=== PATIENT | female | born 1940 | race Caucasian/White ===

== ENCOUNTER 2019-10-25 07:15 | Outpatient (CLI) | payer MEDICARE, SELFPAY ==
--- NOTE | ~2019-10-25 | XR_ITS ---
EXAMINATION: XR knee LT 3V EXAM DATE: 10/25/2019 07:37 INDICATION: No known recent injury provided at this time. Pain of the left knee. Replacement 4 month s ago. TECHNIQUE: Three projections of the left knee. There is no prior study for comparison. FINDINGS: Status post total left knee arthroplasty, hardware in expected position. No periprosthetic lucency. Probable small joint effusion. There are no acute fractures identified. IMPRESSION: 1. Intact left knee arthroplasty. 2. Small joint effusion. Reviewed, dictated and finalized at location B.
== END 2019-10-25 07:16 | disposition home or self-care (01) ==
LOC: ANHIMG 07:19
PROVIDERS: PCP Internal Medicine; Visit Provider Nurse Practitioner
DX: M25.462 Effusion, left knee (principal)
CPT/HCPCS: 36415; 73562; 85610

== ENCOUNTER 2019-11-11 07:25 | Outpatient (CLI) | payer MEDICARE, SELFPAY ==
[2019-11-11 08:19] LABS: Alanine Aminotransferase 16 U/L (4-35); Albumin Level 4.2 g/dL (3.5-5.1); Alkaline Phosphatase 104 U/L (38-126); Aspartate Amino Transferase 33 U/L (14-36); Bilirubin,Total 0.8 mg/dL (0.2-1.3); Blood Urea Nitrogen 22 mg/dL (7-17); Calcium 9.3 mg/dL (8.4-10.2); Carbon Dioxide 30 mmol/L (22-30); Chloride 102 mmol/L (98-107); Cholesterol 192 mg/dL (0-200); Estimated Glomerular Filt Rate 53; Glucose 106 mg/dL (65-105); HDL Direct 63 mg/dL; Potassium 4.1 mmol/L (3.4-5.0); Sodium 139 mmol/L (137-145); Triglycerides 71 mg/dL (<150)
[2019-11-11 08:29] LABS: LDL Cholesterol Direct 91 mg/dL
== END 2019-11-11 07:26 | disposition home or self-care (01) ==
PROVIDERS: PCP Internal Medicine; Visit Provider Internal Medicine
DX: E78.2 Mixed hyperlipidemia (principal); I10 Essential (primary) hypertension; Z79.899 Other long term (current) drug therapy
CPT/HCPCS: 36415; 80053; 80061

== ENCOUNTER 2019-11-22 09:20 | Outpatient (RCR) | payer MEDICARE, SELFPAY ==
[2019-09-24 08:43] LABS: INR 2.4; Prothrombin Time 25.8 Seconds (11.1-14.7)
[2019-10-25 09:22] LABS: INR 2.4
[2019-11-22 09:50] LABS: INR 2.5; Prothrombin Time 26.6 Seconds (11.1-14.7)
== END 2019-12-23 23:59 | disposition home or self-care (01) ==
LOC: ANHLAB 09:20
PROVIDERS: PCP Internal Medicine; Visit Provider Internal Medicine
DX: I25.10 Atherosclerotic heart disease of native coronary artery without angina pectoris (principal)
CPT/HCPCS: 36415; 85610

== ENCOUNTER 2019-12-11 13:27 | Outpatient (CLI) | payer MEDICARE, SELFPAY ==
--- NOTE | ~2019-12-11 | DEXA_ITS ---
Bone Density Report Name: Helen Ng Age: 79 Sex: Female Ethnicity: White Date of : 1940 Indication: postmenopausal; height loss; hysterectomy; rheumatoid arthritis; Referring Provider: Kavya Alvarez Study: Bone densitometry was performed. Exam Date: December 11, 2019 Accession number: [id number] Bone Density: Region BMD T-score Z-score Classification AP Spine (L1, L2, L3) 0.965 -0.5 2.1 Normal Femoral Neck (Left) 0.684 -1.5 0.8 Osteopenia Total Hip (Left) 0.757 -1.5 0.5 Osteopenia Total Hip Bilateral Avg 0.782 -1.3 0.7 Osteopenia Femoral Neck (Right) 0.705 -1.3 1.0 Osteopenia Total Hip (Right) 0.806 -1.1 0.9 Osteopenia World Health Organization criteria for BMD impression classify patients as: Normal (T-score at or above -1.0), Osteopenia (T-score between -1.0 and -2.5), or Osteoporosis (T-score at or below -2.5). 10-year Fracture Risk(1): Major Osteoporotic Fracture 17% Hip Fracture 4.1% Reported Risk Factors: [place] (), Neck BMD=0.684, BMI=27.3, rheumatoid arthritis (1) FRAX(R) Version 3.08. Fracture probability calculated for an untreated patient. Fracture probability may be lower if the patient has received treatment. Previous Exams: Region Exam Age BMD T-score BMD Change BMD Change Date g/cm2 vs Baseline vs Previous AP Spine(L1, L2, L3) 12/11/2019 79 0.965 -0.5 -0.013(-1.3%)# -0.013(-1.3%)# 12/23/2005 65 0.977 -0.4 Total Hip(Left) 12/11/2019 79 0.757 -1.5 -0.147(-16.2%) -0.147(-16.2%) 12/23/2005 65 0.903 -0.3 Total Hip(Right) 12/11/2019 79 0.806 -1.1 -0.073(-8.3%)# -0.073(-8.3%)# 12/23/2005 65 0.879 -0.5 *Denotes significance at 95% confidence level, LSC for AP Spine = 0.022 g/cm2, LSC for Total Hip = 0.027 g/cm2 Clinical Information Provided by Patient: Has rheumatoid arthritis Has the following medical conditions: Hysterectomy Patient maximum height was 67 Menopause Age: 31 Does not regularly consume dairy products Drinks caffeinated beverages Onset of menses at age 16 Number of children 4 Impression: The patient has low bone mass, based on the Left Total Hip T-score. The patient has an estimated ten-year risk of hip fracture of 4.1% and an estimated ten-year risk of major fracture of 17%, based on the WHO FRAX algorithm. No significant bone loss was observed. Discussion: BONE DENSITY IS LOW AT ONE OR MORE SKELETAL SITES. THE PATIENT'S BMD AND CLINICAL RISK FACTORS CONTRIBUTE TO THI
--- NOTE | ~2019-12-11 | MM_ITS ---
EXAMINATION: MM screening [facility] BI w juanis HISTORY: Screening TECHNIQUE: Craniocaudal and mediolateral oblique 3-D tomosynthesis images were obtained and synthetic 2-D images were generated. CAD analysis was submitted and interpreted. COMPARISON: Comparison to multiple prior studies sequentially, with oldest reviewed study dated 01/30. BREAST PARENCHYMAL COMPOSITION: There are scattered areas of fibroglandular density. FINDINGS: Bilateral breast asymmetries are stable. There is no evidence of suspicious mass, calcifica tion, or architectural distortion to suggest malignancy in either breast. There has been no suspiciou s interval change. IMPRESSION: 1. No mammographic evidence of malignancy. 2. Recommend routine screening mammography in one year. BI-RADS Category 2: Benign finding(s). Reviewed, dictated and finalized at location A.
== END 2019-12-11 13:28 | disposition home or self-care (01) ==
PROVIDERS: PCP Internal Medicine; Visit Provider Nurse Practitioner
DX: Z12.31 Encounter for screening mammogram for malignant neoplasm of breast (principal); Z78.0 Asymptomatic menopausal state; M85.852 Other specified disorders of bone density and structure, left thigh; M85.851 Other specified disorders of bone density and structure, right thigh
CPT/HCPCS: 77063; 77067; 77080

== ENCOUNTER 2020-02-20 09:27 | Outpatient (RCR) | payer MEDICARE, SELFPAY ==
[2019-12-30 07:48] LABS: INR 2.3; Prothrombin Time 25.1 Seconds (11.1-14.7)
[2020-01-27 11:03] LABS: INR 2.8; Prothrombin Time 28.9 Seconds (11.1-14.7)
[2020-02-20 10:40] LABS: INR 2.1; Prothrombin Time 23.5 Seconds (11.1-14.7)
== END 2020-03-29 23:59 | disposition home or self-care (01) ==
LOC: ANHLAB 09:27
PROVIDERS: PCP Internal Medicine; Visit Provider Internal Medicine
DX: I25.10 Atherosclerotic heart disease of native coronary artery without angina pectoris (principal)
CPT/HCPCS: 36415; 85610

== ENCOUNTER 2020-09-16 07:41 | Emergency (ER) | payer MEDICARE, SELFPAY ==
--- NOTE | ~2020-09-16 | XR_ITS ---
EXAMINATION: XR knee LT 3V EXAM DATE: 09/16/2020 09:43 INDICATION: Left knee pain, swelling. TECHNIQUE: Three projections of the left knee. Comparison is made to prior examination from 10/25/2019 . FINDINGS: No evidence osteochondral defect or joint body in the left knee joint. No joint effusion . There are no acute fractures or dislocations identified. There is no subcutaneous gas. The soft t issue is unremarkable. Arthroplasty hardware in position. IMPRESSION: Intact left knee arthroplasty. No acute findings. Reviewed, dictated and finalized at location A.
[2020-09-16 07:46] VITALS: BP 147/86; PULSE 88; RESP 16; TEMP 36.5; O2SAT 99
[2020-09-16 09:00] VITALS: BP 144/56; PULSE 62; RESP 16; O2SAT 95
[2020-09-16 09:55] LABS: INR 2.8; Prothrombin Time 29.9 Seconds (11.1-14.7)
[2020-09-16] MEDS: HYDROcodone/acetaminophen (*CRX) 5-325 MG TABLET 1 TAB PO (09:59)
--- NOTE | 2020-09-16 10:45 | ED.GENADULT ---
HPI - General Adult General Chief complaint: Extremity Injury, Lower Stated complaint: Knee replacement 1 year ago, knee hurting now Time Seen by Provider: 09/16/20 09:02 Source: patient, family and RN notes reviewed Mode of arrival: ambulatory Limitations: no limitations History of Present Illness HPI narrative: Patient is an 80-year-old female who presents to emergency department for evaluation of low back and left knee pain for 1 week patient notes the pain originated in the knee has been more active as she has moved back to this area from [place] will be staying here now until fall. Patient with history of orthopedic surgery. Patient with back spasms and knee pain. Has been taking [id number] medications with minimal improvement. Denies injury or trauma Related Data Home Medications Medication Instructions Recorded Confirmed aspirin 81 mg tablet,delayed 81 mg PO DAILY 08/21/19 11/18/19 release omeprazole 40 mg capsule,delayed 40 mg PO DAILY 08/21/19 11/18/19 release pravastatin 80 mg tablet 80 mg PO DAILY 08/21/19 11/18/19 warfarin 4 mg tablet 4 mg PO DAILY 08/21/19 11/18/19 acetaminophen 500 mg tablet 500 mg PO Q6H PRN 10/24/19 11/18/19 Allergies Allergy/AdvReac Type Severity Reaction Status Date / Time Sulfa (Sulfonamide Allergy Unknown Rash Verified 09/16/20 07:57 Antibiotics) sulfamethizole Allergy Unknown rash Verified 09/16/20 07:57 tetracycline Allergy Unknown hives Verified 09/16/20 07:57 trimethoprim Allergy Unknown hives Verified 09/16/20 07:57 Review of Systems Review of Systems: All systems reviewed & are unremarkable except as noted in HPI and below PMFSH Past Medical History Medical History Acute pain of left knee Aortic valve disorder Arteriosclerosis of coronary artery Essential (primary) hypertension Gastro-esophageal reflux disease without esophagitis Hyperlipidemia, unspecified Postmenopausal Presence of prosthetic heart valve Screening for breast cancer Surgical History Surgical History Status post left knee replacement Family History Family History Father Family history of heart disease in male family member before age 55 Other Cerebrovascular accident Family history of cardiovascular disease Social History Social History Smoking status: Never smoker Alcohol intake: current Exam Narrative: Exam Narrative: GENERAL: Well-appearing, well-nourished, and in no acute distress. HEAD: Normocephalic, atraumatic. EYES: PERRLA and EOMI. ENT: Nares clear, no rhinorrhea or epistaxis. Mucous membranes moist. CHEST: Clear to auscultation. No respiratory distress. No wheezes rales or rhonchi HEART: Regular rate and rhythm. No murmur heard. Normal peripheral pulses. ABDOMEN: Soft, nontender, nondistended EXTREMITIES: No deformity or abnormalities of the left knee. No midline lumbar tenderness or hip tenderness SKIN: Warm, dry, no rash. NEURO: No focal deficits. Alert and oriented x3. Cranial nerves II through XII grossly intact. Neurovascularly intact PSYCH: Normal mood and affect. Course Course Emergency Course: Patient with likely knee pain secondary to arthritis with pain to the back and spasm secondary to abnormal gait while she has been favoring the knee patient will be treated accordingly with follow-up with primary care and given orthopedic referral patient is agreeing with this plan Vital Signs Vital signs: Vital Signs Temperature 97.7 F 09/16/20 07:46 Pulse Rate 88 09/16/20 07:46 Respiratory Rate 16 09/16/20 07:46 Blood Pressure 147/86 H 09/16/20 07:46 Pulse Oximetry 99 09/16/20 07:46 Temperature 97.7 F 09/16/20 07:46 Pulse Rate 62 09/16/20 09:00 Respiratory Rate 16 09/16/20 09:00 Blood Pressure 1
[2020-09-16 11:14] VITALS: BP 150/72; PULSE 60; RESP 16; O2SAT 99
== END 2020-09-16 11:16 | disposition home or self-care (01) ==
PROVIDERS: Emergency Medicine Emergency Medical Services; Emergency Provider Emergency Medicine; PCP Internal Medicine
DX: M25.562 Pain in left knee (principal); M54.5 Low back pain; Z96.652 Presence of left artificial knee joint; I25.10 Atherosclerotic heart disease of native coronary artery without angina pectoris; I10 Essential (primary) hypertension; K21.9 Gastro-esophageal reflux disease without esophagitis; E78.5 Hyperlipidemia, unspecified; Z95.2 Presence of prosthetic heart valve
CPT/HCPCS: 36415; 73562; 85610; 99283; A9270

== ENCOUNTER 2020-12-23 12:21 | Outpatient (RCR) | payer MEDICARE, SELFPAY ==
[2020-10-14 13:32] LABS: INR 2.3; Prothrombin Time 25.7 Seconds (11.1-14.7)
[2020-10-28 12:39] LABS: INR 2.8; Prothrombin Time 29.7 Seconds (11.1-14.7)
[2020-11-25 12:43] LABS: INR 2.5; Prothrombin Time 26.4 Seconds (11.1-14.7)
[2020-12-23 12:57] LABS: INR 2.6; Prothrombin Time 27.1 Seconds (11.1-14.7)
== END 2021-01-12 23:59 | disposition home or self-care (01) ==
LOC: ANHLAB 12:21
PROVIDERS: PCP Internal Medicine; Visit Provider Nurse Practitioner
DX: Z95.2 Presence of prosthetic heart valve (principal)
CPT/HCPCS: 36415; 85610

== ENCOUNTER 2020-12-30 15:05 | Outpatient (CLI) | payer MEDICARE, SELFPAY ==
--- NOTE | ~2020-12-30 | MM_ITS ---
EXAMINATION: MM screening [facility] BI w juanis HISTORY: Screening TECHNIQUE: Craniocaudal and mediolateral oblique 3-D tomosynthesis images were obtained and synthetic 2-D images were generated. CAD analysis was submitted and interpreted. COMPARISON: Comparison to multiple prior studies sequentially, with oldest reviewed study dated 01/30. BREAST PARENCHYMAL COMPOSITION: There are scattered areas of fibroglandular density. FINDINGS: There is no evidence of suspicious mass, calcification, or architectural distortion to sugg est malignancy in either breast. There has been no suspicious interval change. IMPRESSION: 1. No mammographic evidence of malignancy. 2. Recommend routine screening mammography in one year. BI-RADS Category 1: Negative Reviewed, dictated and finalized at location A.
== END 2020-12-30 15:06 | disposition home or self-care (01) ==
LOC: ANHIMG 15:08
PROVIDERS: PCP Internal Medicine; Visit Provider Internal Medicine
DX: Z12.31 Encounter for screening mammogram for malignant neoplasm of breast (principal)
CPT/HCPCS: 77063; 77067

== ENCOUNTER 2021-01-08 09:42 | Outpatient (CLI) | payer MEDICARE, SELFPAY ==
--- NOTE | 2021-01-08 | ECG_ITS ---
Measurements Intervals [place] Rate: 63 P: 102 MS: 158 QRS: 41 QRSD: 102 T: 191 QT: 473 QTc: 485 Interpretive Statements SINUS RHYTHM ST-T WAVE ABNORMALITY IN ANTEROLAT/HIGH LAT LEADS- CONSIDER ISCHEMIA ABNORMAL ECG Electronically Signed On 01-08-2021 11:09:35 CDT by Nito Buck D.O.
--- NOTE | ~2021-01-08 | XR_ITS ---
EXAMINATION: XR chest 2V DATE: 01/08/2021 11:08 INDICATION: History of cardiac surgery TECHNIQUE: Frontal and lateral views of the chest are obtained COMPARISON: 11/04/2015 FINDINGS: The lungs are free of acute opacities. There is no pleural effusion or pneumothorax. The ca rdiomediastinal silhouette is normal. There is moderate thoracic spondylosis. Changes of cardiac valv e replacement are again noted. IMPRESSION: 1. No acute cardiopulmonary abnormality. Reviewed, dictated and finalized at location B.
[2021-01-08 10:34] LABS: Basophils Percent Auto 0.4 % (0.2-1.2); Eosinophils Absolute Auto 0.2 K/mm3 (0-0.3); Eosinophils Percent Auto 2.6 % (0-4.4); Hematocrit 45.5 % (37.0-47.0); Hemoglobin 14.7 g/dL (12.0-15.0); Immature Granulocyte Absolute 0.03 K/mm3 (0.00-0.031); Immature Granulocyte Percent A 0.4 % (0-0.5); Lymphocytes Absolute Auto 1.18 K/mm3 (0.9-3.2); Lymphocytes Percent Auto 15.1 % (18.3-44.2); Mean Corpuscular HGB Conc 32.3 g/dl (32-36); Mean Corpuscular Hemoglobin 30.1 pg (26-34); Mean Corpuscular Volume 93.2 fl (80-100); Mean Platelet Volume 10.2 fl (7.4-10.4); Monocytes Absolute Auto 0.7 K/mm3 (0.1-0.6); Monocytes Percent Auto 9.3 % (2.6-8.5); Neutrophils Absolute Auto 5.7 K/mm3 (1.3-6.7); Neutrophils Percent Auto 72.2 % (45.5-73.1); Platelet Count Result 504 k/mm3 (150-375); Red Blood Count 4.88 M/mm3 (4.2-5.4); Red Cell Distribution Width 14.1 % (11.5-14.5); White Blood Count 7.8 K/mm3 (4.5-10.0)
[2021-01-08 10:43] LABS: INR 2.2; Prothrombin Time 24.2 Seconds (11.1-14.7)
[2021-01-08 10:44] LABS: Partial Thromboplastin Time 33.7 SECONDS (22.3-36.8)
[2021-01-08 10:50] LABS: Alanine Aminotransferase 17 U/L (4-35); Albumin Level 4.3 g/dL (3.5-5.1); Alkaline Phosphatase 85 U/L (38-126); Anion Gap 4 mmol/L (8-16); Aspartate Amino Transferase 43 U/L (14-36); Bilirubin,Total 0.7 mg/dL (0.2-1.3); Blood Urea Nitrogen 21 mg/dL (7-17); Calcium 10.2 mg/dL (8.4-10.2); Carbon Dioxide 29 mmol/L (22-30); Chloride 104 mmol/L (98-107); Estimated Glomerular Filt Rate 53; Glucose 98 mg/dL (65-110); Potassium 5.6 mmol/L (3.4-5.0); Sodium 137 mmol/L (137-145)
== END 2021-01-08 09:43 | disposition home or self-care (01) ==
LOC: ANHCARD 09:47
PROVIDERS: PCP Internal Medicine
DX: Z01.818 Encounter for other preprocedural examination (principal); R94.31 Abnormal electrocardiogram [ECG] [EKG]; I25.10 Atherosclerotic heart disease of native coronary artery without angina pectoris; I10 Essential (primary) hypertension; Z95.2 Presence of prosthetic heart valve; Z79.01 Long term (current) use of anticoagulants
CPT/HCPCS: 36415; 71046; 80053; 85025; 85610; 85730; 93005

== ENCOUNTER → 2021-01-14 00:24 | Outpatient (CLI) | payer MEDICARE, SELFPAY ==
[2021-01-14 19:52] LABS: SARS-CoV-2 RNA PCR Negative
== END ==
PROVIDERS: PCP Internal Medicine; Visit Provider Internal Medicine
DX: R68.89 Other general symptoms and signs (principal); Z20.822 Contact with and (suspected) exposure to COVID-19
CPT/HCPCS: C9803; U0003; U0005

== ENCOUNTER 2021-02-17 13:37 | Outpatient (CLI) | payer MEDICARE, SELFPAY ==
[2021-02-17 14:30] LABS: Potassium 4.9 mmol/L (3.4-5.0)
== END 2021-02-17 13:38 | disposition home or self-care (01) ==
LOC: ANHLAB 13:39
PROVIDERS: PCP Internal Medicine; Visit Provider Nurse Practitioner
DX: E87.5 Hyperkalemia (principal)
CPT/HCPCS: 36415; 84132

== ENCOUNTER 2021-03-03 10:13 | Outpatient (RCR) | payer MEDICARE, SELFPAY ==
[2021-02-04 13:22] LABS: INR 2.1; Prothrombin Time 22.9 Seconds (11.1-14.7)
[2021-02-17 14:19] LABS: INR 2.1; Prothrombin Time 23.1 Seconds (11.1-14.7)
[2021-03-03 11:12] LABS: INR 3.3; Prothrombin Time 32.7 Seconds (11.1-14.7)
== END 2021-05-05 23:59 | disposition home or self-care (01) ==
LOC: ANHLAB 10:13
PROVIDERS: PCP Internal Medicine; Visit Provider Nurse Practitioner
DX: Z95.2 Presence of prosthetic heart valve (principal)
CPT/HCPCS: 36415; 84132; 85610

== ENCOUNTER 2021-09-20 10:58 | Outpatient (CLI) | payer MEDICARE, SELFPAY ==
[2021-09-20 11:29] LABS: Hematocrit 35.5 % (37.0-47.0)
[2021-09-20 11:40] LABS: INR 2.2; Prothrombin Time 23.8 Seconds (11.1-14.7)
== END 2021-09-20 10:59 | disposition home or self-care (01) ==
PROVIDERS: PCP Internal Medicine; Visit Provider Internal Medicine
DX: D64.9 Anemia, unspecified (principal); Z95.2 Presence of prosthetic heart valve
CPT/HCPCS: 36415; 85014; 85018; 85610

== ENCOUNTER 2021-11-09 11:43 | Outpatient (CLI) | payer MEDICARE, SELFPAY ==
[2021-11-09 12:02] LABS: Hemoglobin 9.8 g/dL (12.0-15.0)
== END 2021-11-09 11:44 | disposition home or self-care (01) ==
LOC: ANHLAB 11:46
PROVIDERS: PCP Internal Medicine; Visit Provider Internal Medicine
DX: D64.9 Anemia, unspecified (principal)
CPT/HCPCS: 36415; 85014; 85018

== ENCOUNTER 2021-11-29 10:24 | Outpatient (CLI) | payer MEDICARE, SELFPAY ==
[2021-11-29 11:04] LABS: Hematocrit 33.7 % (37.0-47.0); Hemoglobin 10.1 g/dL (12.0-15.0)
== END 2021-11-29 10:25 | disposition home or self-care (01) ==
PROVIDERS: PCP Internal Medicine; Visit Provider Internal Medicine
DX: D64.9 Anemia, unspecified (principal)
CPT/HCPCS: 36415; 85014; 85018

== ENCOUNTER 2021-12-28 10:45 | Outpatient (RCR) | payer MEDICARE, SELFPAY ==
[2021-10-12 09:50] LABS: Hematocrit 34.1 % (37.0-47.0); Hemoglobin 10.4 g/dL (12.0-15.0)
[2021-10-12 09:56] LABS: INR 2.4; Prothrombin Time 25.1 Seconds (11.1-14.7)
[2021-11-09 12:13] LABS: INR 2.7; Prothrombin Time 27.5 Seconds (11.1-14.7)
[2021-11-29 11:18] LABS: INR 2.1; Prothrombin Time 22.8 Seconds (11.1-14.7)
[2021-12-28 12:03] LABS: Hematocrit 38.6 % (37.0-47.0); Hemoglobin 11.7 g/dL (12.0-15.0)
[2021-12-28 12:13] LABS: INR 2.4
== END 2022-01-10 23:59 | disposition home or self-care (01) ==
LOC: ANHLAB 10:45
PROVIDERS: PCP Internal Medicine; Visit Provider Internal Medicine
DX: Z95.2 Presence of prosthetic heart valve (principal)
CPT/HCPCS: 36415; 85014; 85018; 85610

== ENCOUNTER 2022-03-01 11:06 | Outpatient (RCR) | payer MEDICARE, SELFPAY ==
[2022-01-26 12:56] LABS: Hematocrit 40.2 % (37.0-47.0); Hemoglobin 12.3 g/dL (12.0-15.0)
[2022-01-26 13:01] LABS: INR 2.7; Prothrombin Time 27.5 Seconds (11.1-14.7)
[2022-03-01 11:36] LABS: Hemoglobin 13.1 g/dL (12.0-15.0)
[2022-03-01 11:55] LABS: INR 2.8; Prothrombin Time 28.8 Seconds (11.1-14.7)
== END 2022-04-26 23:59 | disposition home or self-care (01) ==
LOC: ANHLAB 11:06
PROVIDERS: PCP Internal Medicine; Visit Provider Internal Medicine
DX: Z95.2 Presence of prosthetic heart valve (principal); D64.9 Anemia, unspecified
CPT/HCPCS: 36415; 85014; 85018; 85610

== ENCOUNTER 2022-09-16 07:34 | Outpatient (CLI) | payer MEDICARE, SELFPAY ==
[2022-09-16 08:21] LABS: Alanine Aminotransferase 22 U/L (6-35); Alkaline Phosphatase 88 U/L (38-126); Anion Gap 2 mmol/L (8-16); Aspartate Amino Transferase 31 U/L (14-36); Bilirubin,Total 0.7 mg/dL (0.2-1.3); Blood Urea Nitrogen 24 mg/dL (7-17); Calcium 9.3 mg/dL (8.4-10.2); Carbon Dioxide 35 mmol/L (22-30); Chloride 101 mmol/L (98-107); Cholesterol 208 mg/dL (0-200); Estimated Glomerular Filt Rate 53; Glucose 106 mg/dL (65-110); HDL Direct 84 mg/dL; Potassium 5.3 mmol/L (3.4-5.0); Sodium 138 mmol/L (137-145); Triglycerides 58 mg/dL (<150)
[2022-09-16 08:32] LABS: LDL Cholesterol Direct 94 mg/dL
[2022-09-16 08:51] LABS: Vitamin D 25 Hydroxy 27.9 ng/mL
== END 2022-09-16 07:35 | disposition home or self-care (01) ==
PROVIDERS: PCP Nurse Practitioner; Visit Provider Nurse Practitioner
DX: E78.5 Hyperlipidemia, unspecified (principal); E55.9 Vitamin D deficiency, unspecified
CPT/HCPCS: 36415; 80053; 80061; 82306

== ENCOUNTER 2022-11-02 13:37 | Outpatient (CLI) | payer MEDICARE, SELFPAY ==
--- NOTE | ~2022-11-02 | MM_ITS ---
EXAMINATION: MM screening [facility] BI w juanis HISTORY: Screening mammogram, family history of breast cancer in her sister. TECHNIQUE: Craniocaudal and mediolateral oblique 3-D tomosynthesis images were obtained and synthetic 2-D images were generated. CAD analysis was submitted and interpreted. COMPARISON: 12/30/2020, 12/11/2019, 10/31/2018 BREAST PARENCHYMAL COMPOSITION: There are scattered areas of fibroglandular density. FINDINGS: Scattered benign-appearing calcifications are present. No suspicious mass, calcification, o r architectural distortion are identified in either breast to suggest malignancy. There has been no s uspicious interval change. IMPRESSION: 1. No mammographic evidence of malignancy. 2. Recommend routine screening mammography while the patient remains in good health. BI-RADS Category 2: Benign finding(s). Reviewed, dictated and finalized at location A. IMPRESSION: 1. No mammographic evidence of malignancy. 2. Recommend routine screening mammography while the patient remains in good he alth. BI-RADS Category 2: Benign finding(s).
== END 2022-11-02 13:38 | disposition home or self-care (01) ==
LOC: ANHIMG 13:40
PROVIDERS: PCP Nurse Practitioner; Visit Provider Nurse Practitioner
DX: Z12.31 Encounter for screening mammogram for malignant neoplasm of breast (principal)
CPT/HCPCS: 36415; 77063; 77067; 85610

== ENCOUNTER 2022-11-16 10:52 | Outpatient (RCR) | payer MEDICARE, SELFPAY ==
[2022-08-24 12:12] LABS: INR 2.8; Prothrombin Time 28.6 Seconds (11.1-14.7)
[2022-09-16 08:13] LABS: INR 2.7; Prothrombin Time 30.6 Seconds (11.1-14.7)
[2022-10-19 11:20] LABS: INR 2.3; Prothrombin Time 26.9 Seconds (11.1-14.7)
[2022-11-02 11:48] LABS: INR 2.4; Prothrombin Time 28.2 Seconds (11.1-14.7)
[2022-11-16 12:24] LABS: INR 2.7; Prothrombin Time 31.1 Seconds (11.1-14.7)
== END 2022-11-22 23:59 | disposition home or self-care (01) ==
LOC: ANHLAB 10:52
PROVIDERS: PCP Nurse Practitioner; Visit Provider Nurse Practitioner
DX: I25.10 Atherosclerotic heart disease of native coronary artery without angina pectoris (principal); E55.9 Vitamin D deficiency, unspecified
CPT/HCPCS: 36415; 80053; 80061; 82306; 85610

== ENCOUNTER 2022-12-05 07:28 | Outpatient (CLI) | payer MEDICARE, SELFPAY ==
[2022-12-05 08:16] LABS: Basophils Absolute Auto 0.1 K/mm3 (0.0-0.1); Basophils Percent Auto 0.8 % (0.2-1.2); Eosinophils Absolute Auto 0.4 K/mm3 (0-0.3); Eosinophils Percent Auto 4.7 % (0-4.4); Hematocrit 45.8 % (37.0-47.0); Hemoglobin 14.6 g/dL (12.0-15.0); Immature Granulocyte Absolute 0.03 K/mm3 (0.00-0.031); Immature Granulocyte Percent A 0.4 % (0-0.5); Lymphocytes Absolute Auto 1.31 K/mm3 (0.9-3.2); Lymphocytes Percent Auto 17.7 % (18.3-44.2); Mean Corpuscular HGB Conc 31.9 g/dl (32-36); Mean Corpuscular Hemoglobin 30.7 pg (26-34); Mean Corpuscular Volume 96.2 fl (80-100); Mean Platelet Volume 10.2 fl (7.4-10.4); Monocytes Absolute Auto 0.6 K/mm3 (0.1-0.6); Monocytes Percent Auto 7.4 % (2.6-8.5); Neutrophils Absolute Auto 5.1 K/mm3 (1.3-6.7); Platelet Count Result 580 k/mm3 (150-375); Red Blood Count 4.76 M/mm3 (4.2-5.4); Red Cell Distribution Width 14.1 % (11.5-14.5); White Blood Count 7.4 K/mm3 (4.5-10.0)
[2022-12-05 08:26] LABS: Anion Gap 4 mmol/L (8-16); Blood Urea Nitrogen 19 mg/dL (7-17); Calcium 9.7 mg/dL (8.4-10.2); Carbon Dioxide 33 mmol/L (22-30); Chloride 99 mmol/L (98-107); Cholesterol 204 mg/dL (0-200); Estimated Glomerular Filt Rate 53; Glucose 109 mg/dL (65-110); HDL Direct 76 mg/dL; Sodium 136 mmol/L (137-145); Triglycerides 88 mg/dL (<150)
[2022-12-05 08:29] LABS: INR 2.5; Prothrombin Time 28.9 Seconds (11.1-14.7)
[2022-12-05 08:37] LABS: LDL Cholesterol Direct 87 mg/dL
== END 2022-12-05 07:29 | disposition home or self-care (01) ==
PROVIDERS: PCP Nurse Practitioner
DX: E78.5 Hyperlipidemia, unspecified (principal); I25.10 Atherosclerotic heart disease of native coronary artery without angina pectoris; I49.3 Ventricular premature depolarization; Z95.2 Presence of prosthetic heart valve
CPT/HCPCS: 36415; 80048; 80061; 85025; 85610

== ENCOUNTER 2023-03-02 11:00 | Outpatient (RCR) | payer MEDICARE, SELFPAY ==
[2023-01-10 11:57] VITALS: PULSE 59
== END 2023-03-08 11:20 | disposition home or self-care (01) ==
LOC: ANHCPREHAB 11:00
PROVIDERS: PCP Nurse Practitioner
DX: Z95.5 Presence of coronary angioplasty implant and graft (principal)
CPT/HCPCS: 93798

== ENCOUNTER 2023-03-09 09:49 | Outpatient (RCR) | payer MEDICARE, SELFPAY ==
[2022-12-15 08:36] LABS: INR 1.3; Prothrombin Time 16.7 Seconds (11.1-14.7)
[2022-12-21 09:02] LABS: INR 3.9
[2022-12-26 10:37] LABS: INR 3.7; Prothrombin Time 39.3 Seconds (11.1-14.7)
[2023-01-03 09:17] LABS: INR 2.7; Prothrombin Time 31.1 Seconds (11.1-14.7)
[2023-01-17 10:13] LABS: INR 2.4; Prothrombin Time 27.7 Seconds (11.1-14.7)
[2023-01-30 13:08] LABS: INR 2.3; Prothrombin Time 27.4 Seconds (11.1-14.7)
[2023-02-13 13:32] LABS: INR 3.1; Prothrombin Time 34.8 Seconds (11.1-14.7)
[2023-03-09 10:28] LABS: Prothrombin Time 33.5 Seconds (11.1-14.7)
== END 2023-03-15 23:59 | disposition home or self-care (01) ==
LOC: ANHLAB 09:49
PROVIDERS: PCP Nurse Practitioner; Visit Provider Nurse Practitioner
DX: I25.10 Atherosclerotic heart disease of native coronary artery without angina pectoris (principal)
CPT/HCPCS: 36415; 85610

== ENCOUNTER 2023-09-07 08:41 | Outpatient (CLI) | payer MEDICARE, SELFPAY ==
[2023-09-07 09:21] LABS: Hematocrit 49.4 % (37.0-47.0); Hemoglobin 15.6 g/dL (12.0-15.0); Mean Corpuscular HGB Conc 31.6 g/dl (32-36); Mean Corpuscular Hemoglobin 29.6 pg (26-34); Mean Corpuscular Volume 93.7 fl (80-100); Mean Platelet Volume 10.1 fl (7.4-10.4); Platelet Count Result 549 k/mm3 (150-375); Red Blood Count 5.27 M/mm3 (4.2-5.4); Red Cell Distribution Width 14.1 % (11.5-14.5); White Blood Count 7.2 K/mm3 (4.5-10.0)
[2023-09-07 09:34] LABS: Alanine Aminotransferase 19 U/L (6-35); Albumin Level 4.6 g/dL (3.5-5.1); Alkaline Phosphatase 97 U/L (38-126); Anion Gap 5 mmol/L (4-12); Aspartate Amino Transferase 37 U/L (14-36); Bilirubin,Total 0.9 mg/dL (0.2-1.3); Blood Urea Nitrogen 20 mg/dL (7-17); Calcium 9.9 mg/dL (8.4-10.2); Carbon Dioxide 30 mmol/L (22-30); Chloride 102 mmol/L (98-107); Estimated Glomerular Filt Rate 53; Glucose 107 mg/dL (65-110); Potassium 4.4 mmol/L (3.4-5.0); Sodium 137 mmol/L (137-145)
[2023-09-07 09:51] LABS: INR 2.2; Prothrombin Time 25.6 Seconds (11.1-14.7)
== END 2023-09-07 08:42 | disposition home or self-care (01) ==
PROVIDERS: PCP Nurse Practitioner; Visit Provider Nurse Practitioner
DX: E78.5 Hyperlipidemia, unspecified (principal); I35.9 Nonrheumatic aortic valve disorder, unspecified; Z79.01 Long term (current) use of anticoagulants; Z95.2 Presence of prosthetic heart valve
CPT/HCPCS: 36415; 80053; 85027; 85610

== ENCOUNTER 2023-11-23 09:50 | Outpatient (RCR) | payer MEDICARE, SELFPAY ==
[2023-09-18 11:37] LABS: INR 2.3; Prothrombin Time 27.2 Seconds (11.1-14.7)
[2023-10-26 10:26] LABS: INR 2.7; Prothrombin Time 29.2 Seconds (11.1-14.7)
[2023-11-23 10:26] LABS: INR 2.8
== END 2023-12-17 23:59 | disposition home or self-care (01) ==
LOC: ANHLAB 09:50
PROVIDERS: PCP Nurse Practitioner; Visit Provider Nurse Practitioner
DX: Z51.81 Encounter for therapeutic drug level monitoring (principal); I35.9 Nonrheumatic aortic valve disorder, unspecified; Z79.01 Long term (current) use of anticoagulants
CPT/HCPCS: 36415; 85610

== ENCOUNTER 2024-02-12 09:36 | Outpatient (RCR) | payer MEDICARE, SELFPAY ==
[2023-12-20 14:10] LABS: INR 2.6; Prothrombin Time 28.4 Seconds (11.1-14.7)
[2024-01-17 14:42] LABS: INR 2.8; Prothrombin Time 29.6 Seconds (11.1-14.7)
[2024-02-12 10:05] LABS: INR 2.4; Prothrombin Time 26.6 Seconds (11.1-14.7)
== END 2024-03-19 23:59 | disposition home or self-care (01) ==
LOC: ANHLAB 09:36
PROVIDERS: PCP Nurse Practitioner; Visit Provider Nurse Practitioner
DX: I35.9 Nonrheumatic aortic valve disorder, unspecified (principal); Z79.01 Long term (current) use of anticoagulants
CPT/HCPCS: 36415; 85610

== ENCOUNTER 2024-08-27 09:31 | Outpatient (CLI) | payer MEDICARE, SELFPAY ==
[2024-08-27 10:09] LABS: Prothrombin Time 23.3 Seconds (11.1-14.7)
--- OUTSIDE RECORDS SUMMARY | 2024-08-27 10:25 | XMS_ITS | Clinical Summary ---
Author Organization [facility] Address [address] [place] [address] Phone Care Team Providers Care Senior Accounting Analyst Name Role Phone Edgar Gay MD Primary Care Provider + Allergies Active Allergy Reactions Criticality Noted Date Comments Atorvastatin Muscle Pain Low 08/13/2012 Ezetimibe Muscle Pain Low 08/13/2012 Morphine Nausea and Vomiting Low 03/03/2010 Tetracycline Rash Low 03/03/2010 Medications metoprolol succinate ER 24 hour (TOPROL-XL) 25 mg Oral tablet daily. Activ e warfarin (COUMADIN) 3 mg Oral tablet see administration instructions. Active aspirin (ELIS) 81 mg Oral Tab daily. Active indapamide (LOZOL) 1.25 mg Oral tablet daily. Activ e HYDROCODONE BIT/ACETAMINOP HEN (HYDROCODONE-A CETAMINOPHEN ORAL) 1 time daily as needed. Active valsartan (DIOVAN) 160 mg Oral tablet Take 160 mg by mouth daily. Active esomeprazole (NEXIUM) 40 mg Oral CpDR Take 40 mg by mouth daily before breakfast. Active pravastatin (PRAVACHOL) 80 mg Oral tablet Take 80 mg by mouth Daily LATE. Active Active Problems Patient Care Coordination No te Formatting of this note migh t be different from the original. 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 Meño Schulz (24-mm ATS AP valve). Most recent echocardiogram (04-21-08): grossly normal prosthetic mitral valve with 2.9 mmHg mean diastolic gradient, pressure half time 112 milliseconds, valve area 2.0 cm squared, with normal left ventricular function. Coronary atherosclerosis of [place] coronary geena ry Overview (02/26/2014): Status post LAD/diagonal stenting with two bare-metal stents utilized in a T -stent fashion 08-26-09 in the setting of angina and normal left ventricular function. Nuclear medicine stress test 02/11/13: 6:05, 7 METS, clinically, ECG, and scintigraphically normal, LVEF 73%. Hypertension Hyperlipidemia Tricuspid regurgitation Overview (09/20/2011): Mild to moderate by echocardiography 04/21/08. Ventricular ectopy Overview (03/03/2010): with 7430 single PVCs, 179 couplets, and 4 three-beat runs of ventricular tachycardia by Holter monitoring 10-22-09. 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 Gender Identity Not on file Sexual Orientation Not on file Last Filed Vital Signs Vital Sign Reading Time Taken Comments Blood Pressure 132/80 08/27/2014 8:47 AM CDT Pulse 60 08/27/2014 8:47 AM CDT Temperature - - Respiratory Rate 12 08/27/2014 8:47 AM CDT Oxygen Saturation - - Inhaled Oxygen Concentration - - Weight 78 kg (172 lb) 08/27/2014 8:47 AM CDT Height 165.1 cm (5' 5 ) 08/27/2014 8:47 AM CDT Body Mass Index 28.62 08/27/2014 8:47 AM CDT Plan of Treatment Health Maintenance Due Date Last Done Comments DTAP/TDAP/TD VACCINES (1 - Tdap) 1959 PNEUMOCOCCAL VACCINE 50+ YEA RS (1 of 1 - PCV) 1990 ZOSTER VACCINE (1 of 2) 1990 OSTEOPOROSIS SCREENING 2005 RSV VACCINE (60+ or ) (1 - 1-dose 75+ series) 2015 INFLUENZA VACCINE (#1) 2023 COLORECTAL SCREENING Discontinued 11/14/2017, 11/15/19 18 Colorectal Cancer Screening Discontinued FIT-DNA Q 3 years Discontinued FIT/FOBT Q 1 year Discontinued Flex Sig/CT Colonography Q 5 years Discontinued Insurance MEDICARE PART A AND B [employer] Advance Directives For more information, please contact: [phone] Documents on File Type Date Recorded Patient Asparagus Buncher Expl anation Advance Directive POA 02/11/2013 9:24 AM Advance Directive POA Care Teams Senior Accounting Analyst Relationship Specialty Start Date End Date Edgar Gay MD PCP - General Internal Medicine 09/24/10
--- OUTSIDE RECORDS SUMMARY | 2024-08-27 10:25 | XMS_ITS | Clinical Summary ---
Author Organization [facility] Address [address] [place] [id number] Care Team Providers Care Reference And Instruction Librarian Name Role Phone Unavailable Primary Care Provider Unavailabl e Social History Tobacco Use Types Packs/Day Years Used Date Smoking Tobacco: Never Assessed Comments Unknown Sex and Gender Information Value Date Recorded Sex Assigned at Not on file Legal Sex Female 7:00 PM CDT Gender Identity Not on file Sexual Orientation Not on file Plan of Treatment Health Maintenance Due Date Last Done Comments DTaP, Tdap and Td Vaccines ( 1 - Tdap) 1959 Pneumococcal Vaccine: 50+ Ye ars (1 of 1 - PCV) 1990 Zoster Vaccines (1 of 2) 1990 Dexa Scan (General) 2005 RSV Immunization or 60+ Years (1 - 1-dose 75+ series) 2015 COVID-19 Vaccine (2023-2 5 season) 2023 Meningococcal B Vaccine Aged Out No l onger eligible based on patient's age to complete this topic Meningococcal Vaccine Aged Out No carlos martin eligible based on patient's age to complete this topic RSV Immunizations Under 20 Months Aged Out No longer eligible based on patient's age to complete this topic
--- OUTSIDE RECORDS SUMMARY | 2024-08-27 10:26 | XMS_ITS ---
Author Organization Dr Willian Palmer PA Address [address] [facility] [address] [place], [place] [id number] Care Team Providers Care Residential Real Estate Assistant Name Role Phone WILLIAN ROMERO Primary Care Provider Willian Romero MD Unavailable Unavailable REASON FOR VISIT INR RESULTS Encounters Encounter Location Date Provider Diagnosis Dr Willian Romero MD PA [address] [facility] [address] [place], [place] [id number] 07/17/2024 WILLIAN ROMERO Plan Of Treatment Next Appt Details Provider Name:TESSIE YA, 03/31/2025 01:00:00 PM, [address] [facility], [address], [place], [place], [id number], Progress Notes * RAFA BELLOB:1940 ([age] yo F)Acc No.[id number]:07/17/2024 Patient: Rodrigo KAITLYN, SUZY :1940 A ge:84 Y S ex:Female Address:[address] [place], [address] * true * Date: Generated for Printi ng/Faxing/eTransmitting on: 0 08/27/2024 11:26 AM EDT
--- OUTSIDE RECORDS SUMMARY | 2024-08-27 10:26 | XMS_ITS | Patient Health Record ---
Author Organization Dr Willian Palmer PA Address [address] [facility] [address] [place], [place] [id number] Care Team Providers Care Tool Crib Lead Name Role Phone WILLIAN ROMERO Primary Care Provider Willian Romero MD Unavailable Unavailable TESSIE WHITESIDE Unavailable [phone] Allergies Allergen (clinical drug ingredient) Drug/Non Drug Allergy documented on EMR Reaction Allergy Type Onset Date Status morphine Morphine Severity Observation:Mil d , Vomiting , Drug Allergy Active tetracycline Tetracycline Rash , Hives , Severity Observation:Mil d , Drug Allergy Active Reason For Referral No Information Medications Medication SIG (Take, Route, Frequency, Duration) Notes Start Date End Date Status Warfarin Sodium 3 MG 1 tablet Orally Onc e a day for 90 days Active Iron 325 (65 Fe) MG 1 tablet Orally Once a day Active Tylenol Extra Strength 500 MG 1 tablet as needed Orally every 6 hrs Active Aspirin 81 81 MG 1 tablet Orally Once a day Active Valsartan-hydroCHLOROthia zide 320-25 MG TAKE 1 TABLET BY MOUTH EVERY DAY for 90 days Active Warfarin Sodium 3 MG TAKE 1 TABLET BY MOUTH EVERY DAY for 90 days Active Omeprazole 40 MG 1 capsule 30 minutes before morning meal Orally Once a day Active Levothyroxine Sodium 112 MCG 1 tablet Orally Monday-Monday Active Warfarin Sodium 4 MG 1 tablet Orally ONE DAY A WEEK ON MONDAY Not-Taking Valsartan-hydroCHLOROthia zide 320-25 MG TAKE 1 TABLET BY MOUTH EVERY DAY for 90 Active Clopidogrel Bisulfate 75 MG 1 tablet Orally Once a day for 90 days 6 MONTH Active Metoprolol Succinate ER 25 MG TAKE 1 TABLET BY MOUTH DAILY Oral for 90 Days Active Pravastatin Sodium 80 MG 1 tablet Orally Once a day for 90 days Active Social History Tobacco Use: Social History Observation Description Date Details (start date - stop date) Never Smoker NA - NA Tobacco Use/Smoking Question Answer Notes Tobacco use: nonsmoker Problems Problem Type SNOMED Code ICD Code Onset Dates Problem Status W/U Status Risk Notes Problem 65138901 Other specified hypothyroidism (E03.8) Active confirmed Problem 648773075 Mixed hyperlipidemia (E78.2) Active confirmed Problem Hypertensive heart disease without congestive heart failure (70896877) Hypertensive heart disease without heart failure (I11.9) Active confirmed Problem Mitral valve disorder (85036109) Nonrheumatic mitral (valve) insufficiency (I34.0) Active confirmed Problem Seasonal allergic rhinitis (022280294) Other seasonal allergic rhinitis (J30.2) Active confirmed Problem Gastrointestinal hemorrhage (24414243) Gastrointestinal hemorrhage, unspecified (K92.2) Active confirmed Problem Impaired fasting glucose (751281609) Impaired fasting glucose (R73.01) Active confirmed Problem Long-term current use of anticoagulant (945176536) long term care pharmacist (current) use of anticoagulants (Z79.01) Active confirmed Problem Long-term current use of drug therapy (816502428) Other terminal operator (current) drug therapy (Z79.899) Active confirmed Problem History of heart valve repair with prosthesis (458232049998469) Presence of prosthetic heart valve (Z95.2) Active confirmed Problem 00373003 DDD (degenerativ e disc disease), lumbar (M51.36) Active confirmed Problem Transient ischemic attack (077249144) TIA (transient ischemic attack) (G45.9) Active confirmed Problem 985708592 Coronary artery disease involving [place] coronary artery of [place] heart without angina pectoris (I25.10) Active confirmed Problem Hypertensive heart disease without congestive heart failure (01526771) Hypertensive arteriosclerotic cardiovascular disease (I11.9) Active confirmed Problem Peptic ulcer (95719930) Peptic ulcer (K27.9) Active confirmed Problem 144097207 Nonrheumatic mitral valve regurgitation (I34.0) Active confirmed Problem 710694894 GERD without esophagitis (K21.9) Active confirmed Problem Anemia due to chronic blood loss (236945985) Blood loss anemia (D50.0) Active confirmed Problem Atherosclerosis of coronary artery without angina pectoris (202483008875808) Atherosclerosis of [place] coronary artery of [place] heart without angina pectoris (I25.10) Active confirmed Problem Cervical radiculopathy (48739914) Cervical radiculopathy (M54.12) Active confirmed Problem 19954606784657 S/P mitral valve replacement with metallic valve (Z95.4) Active confirmed Problem Thoracic radiculopathy (05338860) Thoracic radiculopathy (M54.14) Active confirmed Problem Mixed hyperlipidemia (383454092) Hyperlipemia, mixed (E78.2) Active confirmed Problem 298369621 Osteoarthritis o f spine with radiculopathy, cervical region (M47.22) Active confirmed Problem 26824842821604370 Internal derangement of left shoulder (M24.812) Active confirmed Problem 065385599 Stage 3a chronic kidney disease (CKD) (N18.31) Active confirmed Problem Mechanical heart valve prosthesis (936543154) Mechanical heart valve present (Z95.2) Active confirmed Problem 85153048 Degeneration of intervertebral disc of lumbar region with discogenic back pain and lower extremity pain (M51.362) Active confirmed Vital Signs Heart Rate 71 /min 04/29/2024 Temperature 97.8 degrees Fahrenheit 04/29/2024 Respiratory Rate 18 /min 04/29/2024 Oximetry 96 % 04/29/2024 Blood pressure diastolic 68 mm Hg 04/29/2024 Weight-kg 77.11 kg 04/29/2024 Height 64 in 04/29/2024 Blood pressure systolic 120 mm Hg 04/29/2024 Weight 170 lbs 04/29/2024 BMI 29.18 kg/m2 04/29/2024 Encounters Encounter Location Date Provider Diagnosis Dr Willian Romero MD PA [address] [facility] [address] [place], [place] [phone] 02/28/2024 WILLIAN ROMERO Hypertensive heart disease without heart failure I11.9 ; Coronary artery disease involving [place] coronary artery of [place] heart without angina pectoris I25.10 ; Mixed hyperlipidemia E78.2 ; Impaired fasting glucose R73.01 ; Other specified hypothyroidism E03.8 ; Peptic ulcer K27.9 ; Nonrheumatic mitral valve regurgitation I34.0 ; DDD (degenerative disc disease), lumbar M51.36 ; GERD without esophagitis K21.9 ; TIA (transient ischemic attack) G45.9 ; Internal derangement of left shoulder M24.812 ; Osteoarthritis of spine with radiculopathy, cervical region M47.22 ; S/P mitral valve replacement with metallic valve Z95.4 ; shelter (current) use of anticoagulants Z79.01 ; Mechanical heart valve present Z95.2 and Encounter for immunization Z23 Dr Willian PADILLA [address] [facility] [address] [place] [id number] 04/29/2024 TESSIE WHITESIDE Hypertensive heart disease without heart failure I11.9 ; Coronary artery disease involving [place] coronary artery of [place] heart without angina pectoris I25.10 ; Mixed hyperlipidemia E78.2 ; Impaired fasting glucose R73.01 ; Other specified hypothyroidism E03.8 ; Degeneration of intervertebral disc of lumbar region with discogenic back pain and lower extremity pain M51.362 ; Osteoarthritis of spine with radiculopathy, cervical region M47.22 ; Peptic ulcer K27.9 ; GERD without esophagitis K21.9 ; Nonrheumatic mitral valve regurgitation I34.0 ; TIA (transient ischemic attack) G45.9 ; S/P mitral valve replacement with metallic valve Z95.4 ; shelter (current) use of anticoagulants Z79.01 ; Mechanical heart valve present Z95.2 ; Encounter for general adult medical examination without abnormal findings Z00.00 ; Encounter for immunization Z23 and Stage 3a chronic kidney disease (CKD) N18.31 Dr Willian PADILLA [address] [facility] [address] [place] [id number] 03/01/2024 WILLIAN ROMERO S/P mitral valve replacement with metallic valve Z95.4 and Mechanical heart valve present Z95.2 Dr Willian Romero MD PA [address] [facility] [address] [place] [address] [id number] 03/15/2024 TESSIE Romero MD PA [address] [facility] [address] [place] [address] [id number] 03/18/2024 WILLIAN ROMERO S/P mitral valve replacement with metallic valve Z95.4 Dr Willian Romero MD PA [address] [facility] [address] [place] [address] [id number] 04/04/2024 WILLIAN Romero MD PA [address] [facility] [address] [place] [address] [id number] 04/18/2024 WILLIAN Romero MD PA [address] [facility] [address] [place] [address] [id number] 05/08/2024 WILLIAN Romero MD PA [address] [facility] [address] [place] [address] [id number] 05/22/2024 WILLIAN Romero MD PA [address] [facility] [address] [place] [address] [id number] 06/06/2024 WILLIAN ROMERO S/P mitral valve replacement with metallic valve Z95.4 Dr Willian Romero MD PA [address] [facility] [address] [place] [address] [id number] 06/20/2024 WILLIAN Romero MD PA [address] [facility] [address] [place] [address] [id number] 07/03/2024 WILLIAN ROMERO S/P mitral valve replacement with metallic valve Z95.4 Dr Willian Romero MD PA [address] [facility] [address] [place] [address] [id number] 07/17/2024 WILLIAN Romero MD PA [address] [facility] [address] [place] [address] [id number] 07/31/2024 WILLIAN Romero MD PA [address] [id number] 08/14/2024 WILLIAN ROMERO Assessments Encounter Date Diagnosis (ICD Code) Assessment Notes Treatment Notes Treatment Clinical Notes Section Notes 03/01/2024 S/P mitral valve replacement with metallic valve (ICD-10 - Z95.4) 03/18/2024 S/P mitral valve replacement with metallic valve (ICD-10 - Z95.4) 06/06/2024 S/P mitral valve replacement with metallic valve (ICD-10 - Z95.4) 07/03/2024 S/P mitral valve replacement with metallic valve (ICD-10 - Z95.4) 04/29/2024 Coronary artery disease involving [place] coronary artery of [place] heart without angina pectoris (ICD-10 - I25.10) == CAD status post PTCA: No chest pain or dyspnea Per cardiology in [place] On Plavix, statin, beta-mara. Continue 2D echo in May 2023 showed LVEF of 45 to 50%. Patient is on valsartan and also on metoprolol. Continue : Mitral regurgitation : S/p MVR metallic valve Has been on Coumadin chronically PT/INR frequently INR goal 2.5-3.5 : DDD LS spine straight for surgery in the past No back pain : Hypertension: Controlled : GERD: On PPI : Hyperlipidemi a: On statin. Continue : Osteoporosis: On Prolia injections : Hypothyroidis m: On levothyroxine . Continue TFT normal 04/29/2024 Hypertensive heart disease without heart failure (ICD-10 - I11.9) == CAD status post PTCA: No chest pain or dyspnea Per cardiology in [place] On Plavix, statin, beta-mara. Continue 2D echo in May 2023 showed LVEF of 45 to 50%. Patient is on valsartan and also on metoprolol. Continue : Mitral regurgitation : S/p MVR metallic valve Has been on Coumadin chronically PT/INR frequently INR goal 2.5-3.5 : DDD LS spine straight for surgery in the past No back pain : Hypertension: Controlled : GERD: On PPI : Hyperlipidemi a: On statin. Continue : Osteoporosis: On Prolia injections : Hypothyroidis m: On levothyroxine . Continue TFT normal 02/28/2024 Coronary artery disease involving [place] coronary artery of [place] heart without angina pectoris (ICD-10 - I25.10) == : CAD status post PTCA: No chest pain or dyspnea Per cardiology in [place] On Plavix, statin, beta-mara. Continue 2D echo in May 2023 showed LVEF of 45 to 50%. Patient is on valsartan and also on metoprolol. Continue : Mitral regurgitation : S/p MVR metallic valve Has been on Coumadin chronically PT/INR frequently INR goal 2.5-3.5 : DDD LS spine straight for surgery in the past No back pain : Hypertension: Controlled : GERD: On PPI : Hyperlipidemi a: On statin. Continue : Osteoporosis: On Prolia injections : Hypothyroidis m: On levothyroxine . Continue 02/28/2024 Hypertensive heart disease without heart failure (ICD-10 - I11.9) == : CAD status post PTCA: No chest pain or dyspnea Per cardiology in [place] On Plavix, statin, beta-mara. Continue 2D echo in May 2023 showed LVEF of 45 to 50%. Patient is on valsartan and also on metoprolol. Continue : Mitral regurgitation : S/p MVR metallic valve Has been on Coumadin chronically PT/INR frequently INR goal 2.5-3.5 : DDD LS spine straight for surgery in the past No back pain : Hypertension: Controlled : GERD: On PPI : Hyperlipidemi a: On statin. Continue : Osteoporosis: On Prolia injections : Hypothyroidis m: On levothyroxine . Continue 02/28/2024 Mixed hyperlipidemia (ICD-10 - E78.2) == : CAD status post PTCA: No chest pain or dyspnea Per cardiology in [place] On Plavix, statin, beta-mara. Continue 2D echo in May 2023 showed LVEF of 45 to 50%. Patient is on valsartan and also on metoprolol. Continue : Mitral regurgitation : S/p MVR metallic valve Has been on Coumadin chronically PT/INR frequently INR goal 2.5-3.5 : DDD LS spine straight for surgery in the past No back pain : Hypertension: Controlled : GERD: On PPI : Hyperlipidemi a: On statin. Continue : Osteoporosis: On Prolia injections : Hypothyroidis m: On levothyroxine . Continue 03/01/2024 Mechanical heart valve present (ICD-10 - Z95.2) 04/29/2024 Mixed hyperlipidemia (ICD-10 - E78.2) == CAD status post PTCA: No chest pain or dyspnea Per cardiology in [place] On Plavix, statin, beta-mara. Continue 2D echo in May 2023 showed LVEF of 45 to 50%. Patient is on valsartan and also on metoprolol. Continue : Mitral regurgitation : S/p MVR metallic valve Has been on Coumadin chronically PT/INR frequently INR goal 2.5-3.5 : DDD LS spine straight for surgery in the past No back pain : Hypertension: Controlled : GERD: On PPI : Hyperlipidemi a: On statin. Continue : Osteoporosis: On Prolia injections : Hypothyroidis m: On levothyroxine . Continue TFT normal 04/29/2024 Impaired fasting glucose (ICD-10 - R73.01) == CAD status post PTCA: No chest pain or dyspnea Per cardiology in [place] On Plavix, statin, beta-mara. Continue 2D echo in May 2023 showed LVEF of 45 to 50%. Patient is on valsartan and also on metoprolol. Continue : Mitral regurgitation : S/p MVR metallic valve Has been on Coumadin chronically PT/INR frequently INR goal 2.5-3.5 : DDD LS spine straight for surgery in the past No back pain : Hypertension: Controlled : GERD: On PPI : Hyperlipidemi a: On statin. Continue : Osteoporosis: On Prolia injections : Hypothyroidis m: On levothyroxine . Continue TFT normal 02/28/2024 Impaired fasting glucose (ICD-10 - R73.01) == : CAD status post PTCA: No chest pain or dyspnea Per cardiology in [place] On Plavix, statin, beta-mara. Continue 2D echo in May 2023 showed LVEF of 45 to 50%. Patient is on valsartan and also on metoprolol. Continue : Mitral regurgitation : S/p MVR metallic valve Has been on Coumadin chronically PT/INR frequently INR goal 2.5-3.5 : DDD LS spine straight for surgery in the past No back pain : Hypertension: Controlled : GERD: On PPI : Hyperlipidemi a: On statin. Continue : Osteoporosis: On Prolia injections : Hypothyroidis m: On levothyroxine . Continue 02/28/2024 Other specified hypothyroidism (ICD-10 - E03.8) == : CAD status post PTCA: No chest pain or dyspnea Per cardiology in [place] On Plavix, statin, beta-mara. Continue 2D echo in May 2023 showed LVEF of 45 to 50%. Patient is on valsartan and also on metoprolol. Continue : Mitral regurgitation : S/p MVR metallic valve Has been on Coumadin chronically PT/INR frequently INR goal 2.5-3.5 : DDD LS spine straight for surgery in the past No back pain : Hypertension: Controlled : GERD: On PPI : Hyperlipidemi a: On statin. Continue : Osteoporosis: On Prolia injections : Hypothyroidis m: On levothyroxine . Continue 04/29/2024 Other specified hypothyroidism (ICD-10 - E03.8) == CAD status post PTCA: No chest pain or dyspnea Per cardiology in [place] On Plavix, statin, beta-mara. Continue 2D echo in May 2023 showed LVEF of 45 to 50%. Patient is on valsartan and also on metoprolol. Continue : Mitral regurgitation : S/p MVR metallic valve Has been on Coumadin chronically PT/INR frequently INR goal 2.5-3.5 : DDD LS spine straight for surgery in the past No back pain : Hypertension: Controlled : GERD: On PPI : Hyperlipidemi a: On statin. Continue : Osteoporosis: On Prolia injections : Hypothyroidis m: On levothyroxine . Continue TFT normal 02/28/2024 Peptic ulcer (ICD-10 - K27.9) == : CAD status post PTCA: No chest pain or dyspnea Per cardiology in [place] On Plavix, statin, beta-mara. Continue 2D echo in May 2023 showed LVEF of 45 to 50%. Patient is on valsartan and also on metoprolol. Continue : Mitral regurgitation : S/p MVR metallic valve Has been on Coumadin chronically PT/INR frequently INR goal 2.5-3.5 : DDD LS spine straight for surgery in the past No back pain : Hypertension: Controlled : GERD: On PPI : Hyperlipidemi a: On statin. Continue : Osteoporosis: On Prolia injections : Hypothyroidis m: On levothyroxine . Continue 04/29/2024 Degeneration of intervertebral disc of lumbar region with discogenic back pain and lower extremity pain (ICD-10 - M51.362) == CAD status post PTCA: No chest pain or dyspnea Per cardiology in [place] On Plavix, statin, beta-mara. Continue 2D echo in May 2023 showed LVEF of 45 to 50%. Patient is on valsartan and also on metoprolol. Continue : Mitral regurgitation : S/p MVR metallic valve Has been on Coumadin chronically PT/INR frequently INR goal 2.5-3.5 : DDD LS spine straight for surgery in the past No back pain : Hypertension: Controlled : GERD: On PPI : Hyperlipidemi a: On statin. Continue : Osteoporosis: On Prolia injections : Hypothyroidis m: On levothyroxine . Continue TFT normal 04/29/2024 Osteoarthritis of spine with radiculopathy, cervical region (ICD-10 - M47.22) == CAD status post PTCA: No chest pain or dyspnea Per cardiology in [place] On Plavix, statin, beta-mara. Continue 2D echo in May 2023 showed LVEF of 45 to 50%. Patient is on valsartan and also on metoprolol. Continue : Mitral regurgitation : S/p MVR metallic valve Has been on Coumadin chronically PT/INR frequently INR goal 2.5-3.5 : DDD LS spine straight for surgery in the past No back pain : Hypertension: Controlled : GERD: On PPI : Hyperlipidemi a: On statin. Continue : Osteoporosis: On Prolia injections : Hypothyroidis m: On levothyroxine . Continue TFT normal 02/28/2024 Nonrheumatic mitral valve regurgitation (ICD-10 - I34.0) == : CAD status post PTCA: No chest pain or dyspnea Per cardiology in [place] On Plavix, statin, beta-mara. Continue 2D echo in May 2023 showed LVEF of 45 to 50%. Patient is on valsartan and also on metoprolol. Continue : Mitral regurgitation : S/p MVR metallic valve Has been on Coumadin chronically PT/INR frequently INR goal 2.5-3.5 : DDD LS spine straight for surgery in the past No back pain : Hypertension: Controlled : GERD: On PPI : Hyperlipidemi a: On statin. Continue : Osteoporosis: On Prolia injections : Hypothyroidis m: On levothyroxine . Continue 02/28/2024 DDD (degenerative disc disease), lumbar (ICD-10 - M51.36) == : CAD status post PTCA: No chest pain or dyspnea Per cardiology in [place] On Plavix, statin, beta-mara. Continue 2D echo in May 2023 showed LVEF of 45 to 50%. Patient is on valsartan and also on metoprolol. Continue : Mitral regurgitation : S/p MVR metallic valve Has been on Coumadin chronically PT/INR frequently INR goal 2.5-3.5 : DDD LS spine straight for surgery in the past No back pain : Hypertension: Controlled : GERD: On PPI : Hyperlipidemi a: On statin. Continue : Osteoporosis: On Prolia injections : Hypothyroidis m: On levothyroxine . Continue 04/29/2024 Peptic ulcer (ICD-10 - K27.9) == CAD status post PTCA: No chest pain or dyspnea Per cardiology in [place] On Plavix, statin, beta-mara. Continue 2D echo in May 2023 showed LVEF of 45 to 50%. Patient is on valsartan and also on metoprolol. Continue : Mitral regurgitation : S/p MVR metallic valve Has been on Coumadin chronically PT/INR frequently INR goal 2.5-3.5 : DDD LS spine straight for surgery in the past No back pain : Hypertension: Controlled : GERD: On PPI : Hyperlipidemi a: On statin. Continue : Osteoporosis: On Prolia injections : Hypothyroidis m: On levothyroxine . Continue TFT normal 04/29/2024 GERD without esophagitis (ICD-10 - K21.9) == CAD status post PTCA: No chest pain or dyspnea Per cardiology in [place] On Plavix, statin, beta-mara. Continue 2D echo in May 2023 showed LVEF of 45 to 50%. Patient is on valsartan and also on metoprolol. Continue : Mitral regurgitation : S/p MVR metallic valve Has been on Coumadin chronically PT/INR frequently INR goal 2.5-3.5 : DDD LS spine straight for surgery in the past No back pain : Hypertension: Controlled : GERD: On PPI : Hyperlipidemi a: On statin. Continue : Osteoporosis: On Prolia injections : Hypothyroidis m: On levothyroxine . Continue TFT normal 02/28/2024 GERD without esophagitis (ICD-10 - K21.9) == : CAD status post PTCA: No chest pain or dyspnea Per cardiology in [place] On Plavix, statin, beta-mara. Continue 2D echo in May 2023 showed LVEF of 45 to 50%. Patient is on valsartan and also on metoprolol. Continue : Mitral regurgitation : S/p MVR metallic valve Has been on Coumadin chronically PT/INR frequently INR goal 2.5-3.5 : DDD LS spine straight for surgery in the past No back pain : Hypertension: Controlled : GERD: On PPI : Hyperlipidemi a: On statin. Continue : Osteoporosis: On Prolia injections : Hypothyroidis m: On levothyroxine . Continue 02/28/2024 TIA (transient ischemic attack) (ICD-10 - G45.9) == : CAD status post PTCA: No chest pain or dyspnea Per cardiology in [place] On Plavix, statin, beta-mara. Continue 2D echo in May 2023 showed LVEF of 45 to 50%. Patient is on valsartan and also on metoprolol. Continue : Mitral regurgitation : S/p MVR metallic valve Has been on Coumadin chronically PT/INR frequently INR goal 2.5-3.5 : DDD LS spine straight for surgery in the past No back pain : Hypertension: Controlled : GERD: On PPI : Hyperlipidemi a: On statin. Continue : Osteoporosis: On Prolia injections : Hypothyroidis m: On levothyroxine . Continue 04/29/2024 Nonrheumatic mitral valve regurgitation (ICD-10 - I34.0) == CAD status post PTCA: No chest pain or dyspnea Per cardiology in [place] On Plavix, statin, beta-mara. Continue 2D echo in May 2023 showed LVEF of 45 to 50%. Patient is on valsartan and also on metoprolol. Continue : Mitral regurgitation : S/p MVR metallic valve Has been on Coumadin chronically PT/INR frequently INR goal 2.5-3.5 : DDD LS spine straight for surgery in the past No back pain : Hypertension: Controlled : GERD: On PPI : Hyperlipidemi a: On statin. Continue : Osteoporosis: On Prolia injections : Hypothyroidis m: On levothyroxine . Continue TFT normal 04/29/2024 TIA (transient ischemic attack) (ICD-10 - G45.9) == CAD status post PTCA: No chest pain or dyspnea Per cardiology in [place] On Plavix, statin, beta-mara. Continue 2D echo in May 2023 showed LVEF of 45 to 50%. Patient is on valsartan and also on metoprolol. Continue : Mitral regurgitation : S/p MVR metallic valve Has been on Coumadin chronically PT/INR frequently INR goal 2.5-3.5 : DDD LS spine straight for surgery in the past No back pain : Hypertension: Controlled : GERD: On PPI : Hyperlipidemi a: On statin. Continue : Osteoporosis: On Prolia injections : Hypothyroidis m: On levothyroxine . Continue TFT normal 02/28/2024 Internal derangement of left shoulder (ICD-10 - M24.812) == : CAD status post PTCA: No chest pain or dyspnea Per cardiology in [place] On Plavix, statin, beta-mara. Continue 2D echo in May 2023 showed LVEF of 45 to 50%. Patient is on valsartan and also on metoprolol. Continue : Mitral regurgitation : S/p MVR metallic valve Has been on Coumadin chronically PT/INR frequently INR goal 2.5-3.5 : DDD LS spine straight for surgery in the past No back pain : Hypertension: Controlled : GERD: On PPI : Hyperlipidemi a: On statin. Continue : Osteoporosis: On Prolia injections : Hypothyroidis m: On levothyroxine . Continue 02/28/2024 Osteoarthritis of spine with radiculopathy, cervical region (ICD-10 - M47.22) == : CAD status post PTCA: No chest pain or dyspnea Per cardiology in [place] On Plavix, statin, beta-mara. Continue 2D echo in May 2023 showed LVEF of 45 to 50%. Patient is on valsartan and also on metoprolol. Continue : Mitral regurgitation : S/p MVR metallic valve Has been on Coumadin chronically PT/INR frequently INR goal 2.5-3.5 : DDD LS spine straight for surgery in the past No back pain : Hypertension: Controlled : GERD: On PPI : Hyperlipidemi a: On statin. Continue : Osteoporosis: On Prolia injections : Hypothyroidis m: On levothyroxine . Continue 04/29/2024 S/P mitral valve replacement with metallic valve (ICD-10 - Z95.4) == CAD status post PTCA: No chest pain or dyspnea Per cardiology in [place] On Plavix, statin, beta-mara. Continue 2D echo in May 2023 showed LVEF of 45 to 50%. Patient is on valsartan and also on metoprolol. Continue : Mitral regurgitation : S/p MVR metallic valve Has been on Coumadin chronically PT/INR frequently INR goal 2.5-3.5 : DDD LS spine straight for surgery in the past No back pain : Hypertension: Controlled : GERD: On PPI : Hyperlipidemi a: On statin. Continue : Osteoporosis: On Prolia injections : Hypothyroidis m: On levothyroxine . Continue TFT normal 04/29/2024 long term care pharmacist (current) use of anticoagulants (ICD-10 - Z79.01) == CAD status post PTCA: No chest pain or dyspnea Per cardiology in [place] On Plavix, statin, beta-mara. Continue 2D echo in May 2023 showed LVEF of 45 to 50%. Patient is on valsartan and also on metoprolol. Continue : Mitral regurgitation : S/p MVR metallic valve Has been on Coumadin chronically PT/INR frequently INR goal 2.5-3.5 : DDD LS spine straight for surgery in the past No back pain : Hypertension: Controlled : GERD: On PPI : Hyperlipidemi a: On statin. Continue : Osteoporosis: On Prolia injections : Hypothyroidis m: On levothyroxine . Continue TFT normal 02/28/2024 S/P mitral valve replacement with metallic valve (ICD-10 - Z95.4) == : CAD status post PTCA: No chest pain or dyspnea Per cardiology in [place] On Plavix, statin, beta-mara. Continue 2D echo in May 2023 showed LVEF of 45 to 50%. Patient is on valsartan and also on metoprolol. Continue : Mitral regurgitation : S/p MVR metallic valve Has been on Coumadin chronically PT/INR frequently INR goal 2.5-3.5 : DDD LS spine straight for surgery in the past No back pain : Hypertension: Controlled : GERD: On PPI : Hyperlipidemi a: On statin. Continue : Osteoporosis: On Prolia injections : Hypothyroidis m: On levothyroxine . Continue 02/28/2024 long term care pharmacist (current) use of anticoagulants (ICD-10 - Z79.01) == : CAD status post PTCA: No chest pain or dyspnea Per cardiology in [place] On Plavix, statin, beta-mara. Continue 2D echo in May 2023 showed LVEF of 45 to 50%. Patient is on valsartan and also on metoprolol. Continue : Mitral regurgitation : S/p MVR metallic valve Has been on Coumadin chronically PT/INR frequently INR goal 2.5-3.5 : DDD LS spine straight for surgery in the past No back pain : Hypertension: Controlled : GERD: On PPI : Hyperlipidemi a: On statin. Continue : Osteoporosis: On Prolia injections : Hypothyroidis m: On levothyroxine . Continue 04/29/2024 Mechanical heart valve present (ICD-10 - Z95.2) == CAD status post PTCA: No chest pain or dyspnea Per cardiology in [place] On Plavix, statin, beta-mara. Continue 2D echo in May 2023 showed LVEF of 45 to 50%. Patient is on valsartan and also on metoprolol. Continue : Mitral regurgitation : S/p MVR metallic valve Has been on Coumadin chronically PT/INR frequently INR goal 2.5-3.5 : DDD LS spine straight for surgery in the past No back pain : Hypertension: Controlled : GERD: On PPI : Hyperlipidemi a: On statin. Continue : Osteoporosis: On Prolia injections : Hypothyroidis m: On levothyroxine . Continue TFT normal 02/28/2024 Mechanical heart valve present (ICD-10 - Z95.2) == : CAD status post PTCA: No chest pain or dyspnea Per cardiology in [place] On Plavix, statin, beta-mara. Continue 2D echo in May 2023 showed LVEF of 45 to 50%. Patient is on valsartan and also on metoprolol. Continue : Mitral regurgitation : S/p MVR metallic valve Has been on Coumadin chronically PT/INR frequently INR goal 2.5-3.5 : DDD LS spine straight for surgery in the past No back pain : Hypertension: Controlled : GERD: On PPI : Hyperlipidemi a: On statin. Continue : Osteoporosis: On Prolia injections : Hypothyroidis m: On levothyroxine . Continue 04/29/2024 Encounter for general adult medical examination without abnormal findings (ICD-10 - Z00.00) == CAD status post PTCA: No chest pain or dyspnea Per cardiology in [place] On Plavix, statin, beta-mara. Continue 2D echo in May 2023 showed LVEF of 45 to 50%. Patient is on valsartan and also on metoprolol. Continue : Mitral regurgitation : S/p MVR metallic valve Has been on Coumadin chronically PT/INR frequently INR goal 2.5-3.5 : DDD LS spine straight for surgery in the past No back pain : Hypertension: Controlled : GERD: On PPI : Hyperlipidemi a: On statin. Continue : Osteoporosis: On Prolia injections : Hypothyroidis m: On levothyroxine . Continue TFT normal 04/29/2024 Encounter for immunization (ICD-10 - Z23) == CAD status post PTCA: No chest pain or dyspnea Per cardiology in [place] On Plavix, statin, beta-mara. Continue 2D echo in May 2023 showed LVEF of 45 to 50%. Patient is on valsartan and also on metoprolol. Continue : Mitral regurgitation : S/p MVR metallic valve Has been on Coumadin chronically PT/INR frequently INR goal 2.5-3.5 : DDD LS spine straight for surgery in the past No back pain : Hypertension: Controlled : GERD: On PPI : Hyperlipidemi a: On statin. Continue : Osteoporosis: On Prolia injections : Hypothyroidis m: On levothyroxine . Continue TFT normal 02/28/2024 Encounter for immunization (ICD-10 - Z23) == : CAD status post PTCA: No chest pain or dyspnea Per cardiology in [place] On Plavix, statin, beta-mara. Continue 2D echo in May 2023 showed LVEF of 45 to 50%. Patient is on valsartan and also on metoprolol. Continue : Mitral regurgitation : S/p MVR metallic valve Has been on Coumadin chronically PT/INR frequently INR goal 2.5-3.5 : DDD LS spine straight for surgery in the past No back pain : Hypertension: Controlled : GERD: On PPI : Hyperlipidemi a: On statin. Continue : Osteoporosis: On Prolia injections : Hypothyroidis m: On levothyroxine . Continue 04/29/2024 Stage 3a chronic kidney disease (CKD) (ICD-10 - N18.31) == CAD status post PTCA: No chest pain or dyspnea Per cardiology in [place] On Plavix, statin, beta-mara. Continue 2D echo in May 2023 showed LVEF of 45 to 50%. Patient is on valsartan and also on metoprolol. Continue : Mitral regurgitation : S/p MVR metallic valve Has been on Coumadin chronically PT/INR frequently INR goal 2.5-3.5 : DDD LS spine straight for surgery in the past No back pain : Hypertension: Controlled : GERD: On PPI : Hyperlipidemi a: On statin. Continue : Osteoporosis: On Prolia injections : Hypothyroidis m: On levothyroxine . Continue TFT normal 04/29/2024 Other I have reviewed the risks, benefits, and alternatives of care with the patient. The patient has had all questions answered and has verbalized understanding. I have reviewed the medications with the patient as well as all necessary changes made. I have relayed that it is the patients responsibility to return for a followup visit scheduled at the time of this visit, and the patient accepts full responsibility of health care in case of no-shows or cancellations. == CAD status post PTCA: No chest pain or dyspnea Per cardiology in [place] On Plavix, statin, beta-mara. Continue 2D echo in May 2023 showed LVEF of 45 to 50%. Patient is on valsartan and also on metoprolol. Continue : Mitral regurgitation : S/p MVR metallic valve Has been on Coumadin chronically PT/INR frequently INR goal 2.5-3.5 : DDD LS spine straight for surgery in the past No back pain : Hypertension: Controlled : GERD: On PPI : Hyperlipidemi a: On statin. Continue : Osteoporosis: On Prolia injections : Hypothyroidis m: On levothyroxine . Continue TFT normal Plan Of Treatment Pending Test Test Name Order Date Hemoglobin A1c 04/08/2022 Hemoglobin A1c 02/28/2024 PT AND PTT 02/28/2024 TSH+Free T4 02/28/2024 Lipid Panel 02/28/2024 Lipid Panel 04/08/2022 Lipid Panel 03/29/2023 Comp. Metabolic Panel (14) 03/29/2023 Comp. Metabolic Panel (14) 04/08/2022 Comp. Metabolic Panel (14) 02/28/2024 CBC 02/28/2024 CBC 04/08/2022 CBC 03/29/2023 Prothrombin Time with INR (PT/INR) 03/29 Prothrombin Time with INR (PT/INR) 03/30 Prothrombin Time with INR (PT/INR) 08/03 Prothrombin Time with INR (PT/INR) 03/18 Prothrombin Time with INR (PT/INR) 06/06 Prothrombin Time with INR (PT/INR) 07/03 Ultrasound : Thyroid Sonography B-Scan 1 05/29/2022 Echocardiogram, doppler exam 04/14/2023 LIPID PANEL, STANDARD (7600) 04/29/2024 TSH+FREE T4 (65359) 04/29/2024 COMPREHENSIVE METABOLIC PANEL (13166) CBC (H/H, RBC, INDICES, WBC, PLT) (1759) 04/29/2024 HEMOGLOBIN A1c (496) 04/29/2024 Next Appt Details Provider Name:TESSIE YA, 03/31/2025 01:00:00 PM, [address] [facility], [address], [place], [place], [id number], Insurance Providers Payer Name Payer Address Payer Phone Subscriber Number Group Number Insured Name Patient Relationship to Insured Coverage Start Date Coverage End Date MEDICARE [address] [address] [place] [address] [id number] SUZY BELL Self - patient is the insured [employer] [address] [address] [place] [address] [id number] SUZY BELL Self - patient is the insured Medical (General) History Medical History History ICD Code Hypertensive heart disease without heart failure I11.9 Atherosclerosis of [place] co ronary artery of [place] heart without angina pectoris I25.10 Other terminal operator (current) drug therapy Z 79.899 Myiasis 134.0 TIA (transient ischemic attack) G45.9 Presence of prosthetic heart valve Z95.2 Other seasonal allergic rhinitis J30.2 Peptic ulcer K27.9 Surgical History Surgery Date(Month/Year) Procedure on heart - MECHANICAL VALVE - MITRAL 08/30/2005 2 HEART STENTS PLACED 2011 Insertion of stent into vein 05-01-2007 Back surgery 05-01-1991 Breast surgery procedure 05-01-1988 Hysterectomy 05-01-1970 2 HEART STENTS PLACED 12/12/2022 Hospitalization History Reason Date(Month/Year) BLACK TARRY STOOLS 08/24/2021
--- OUTSIDE RECORDS SUMMARY | 2024-08-27 10:26 | XMS_ITS ---
Author Organization Dr Willian Palmer PA Address [address] [facility] [address] [place], [place] [id number] Care Team Providers Care Packaging Sales Consultant Name Role Phone WILLIAN ROMERO Primary Care Provider [phone] Willian Romero MD Unavailable Unavailable REASON FOR VISIT INR RESULTS Encounters Encounter Location Date Provider Diagnosis Dr Willian Romero MD PA [address] [facility] [address] [place], [place] [phone] 07/31/2024 WILLIAN ROMERO Plan Of Treatment Next Appt Details Provider Name:TESSIE YA, 03/31/2025 01:00:00 PM, [address] [facility], [address], [place], [place], [phone], Progress Notes * RAFA BELLOB:1940 ([age] yo F)Acc No.[id number]:07/31/2024 Patient: Rodrigo KAITLYN, SUZY :1940 A ge:84 Y S ex:Female Address:[address] [place], [address] * true * Date: Generated for Printi ng/Faxing/eTransmitting on: 0 08/27/2024 11:25 AM EDT
--- OUTSIDE RECORDS SUMMARY | 2024-08-27 10:26 | XMS_ITS ---
Author Organization Dr Willian Palmer PA Address [address] [facility] [facility] [address] [place] [id number] Care Team Providers Care Radio Interference Expert Name Role Phone WILLIAN ROMERO Primary Care Provider [phone] Willian Romero MD Unavailable Unavailable REASON FOR VISIT PT/INR RESULTS Encounters Encounter Location Date Provider Diagnosis Dr Willian Romero MD PA [address] [employer] [facility] [address] [place], [place] [phone] 08/14/2024 WILLIAN ROMERO Plan Of Treatment Next Appt Details Provider Name:TESSIE YA, 03/31/2025 01:00:00 PM, [address] [facility], [address], [place], [place], [phone], Progress Notes * RAFA BELLOB:1940 ([age] yo F)Acc No.[id number]:08/14/2024 Patient: Rodrigo SUZY SAHNI :1940 A ge:84 Y S ex:Female Address:[address] [place] [address], [phone] * true * Date: Generated for Printi ng/Faxing/eTransmitting on: 0 08/27/2024 11:26 AM EDT
--- OUTSIDE RECORDS SUMMARY | 2024-08-27 10:26 | XMS_ITS | Clinical Summary ---
Author Organization [facility] Address [address] [place] [address] Care Team Providers Care Drop Machine Operator Name Role Phone Kenneth Chun Primary Care Provider [phone] Source Comments [facility],non-owned Affiliates and Associated Physician Practices is amultiple site organization consisting of ambulatory clinics and hospital sitesin [place], [place], [place] and [place]. This disclosure is being madepursuant to the Care Everywhere program and may not contain all information available regarding this patient. Last updated 18.[facility] [employer] Allergies Active Allergy Reactions Criticality Noted Date Comments Atorvastatin Myalgias 02/20/2015 Morphine Nausea and/or Vomiting 02/20/2015 Tetracycline Rash Low 02/20/2015 Ezetimibe Myalgias 02/20/2015 Medications * Be aware that medications may not be up to date on this document. Alwaysverify current medications with the patient. esomeprazole (NEXIUM) 40 MG capsule Take 40 mg by mouth daily before breakfast Active pravastatin (PRAVACHOL) 80 MG tablet Take 80 mg by mouth at bedtime Active warfarin (COUMADIN) 3 MG tablet Take 3 mg by mouth as directed Active aspirin (ASPIRIN) 81 MG tablet Take 81 mg by mouth once daily Active enoxaparin (LOVENOX) injection Inject 100 mg subcutaneously as directed Inject daily 3 days, 2 days, and 1 day prior to procedure, and 1 and 2 days following the procedure 5 syringe 8 Active valsartan-hydr oCHLOROthiazid e (DIOVAN HCT) 320-12.5 MG tablet Take 1 tablet by mouth once daily Active enoxaparin (LOVENOX) injection Inject 120 mg subcutaneously as directed Inject on the mornings of 2/24, 06/25, 06/26, 06/27, , and 06/29. 6 syringe 1 0 Active Cholecalcifero l (VITAMIN D) 125 MCG (5000 UT) CAPS Take 1 capsule weekly Active Active Problems Patient Care Coordination No te Formatting of this note migh t be different from the original. Technical Product Manager- Dr. Bishnu Garibay Problem Noted Date Diagnosed Date Atherosclerosis of [place] ronary artery of [place] heart without angina pectoris 08/19/2016 Non-rheumatic tricuspid valve insufficiency 07/31 S/P MVR (mitral valve replacement) 02/19/2015 Essential hypertension, benign 02/19/2015 Pure hypercholesterolemia 02/19/2015 PVCs (premature ventricular contractions) 2014 Social History Tobacco Use Types Packs/Day Years Used Date Smoking Tobacco: Never Smokeless Tobacco: Never Alcohol Use Standard Drinks/Week Comments Not Asked 0 (1 standard drink = 0.6 oz pur e alcohol) wine occasionally Comments Unknown Sex and Gender Information Value Date Recorded Sex Assigned at Not on file Legal Sex Female 9:54 PM CDT Gender Identity Not on file Sexual Orientation Not on file Last Filed Vital Signs Vital Sign Reading Time Taken Comments Blood Pressure 142/82 02/19/2020 1:57 PM CDT Pulse 60 02/19/2020 1:57 PM CDT Temperature - - Respiratory Rate 12 02/19/2020 1:57 PM CDT Oxygen Saturation - - Inhaled Oxygen Concentration - - Weight 73.5 kg (162 lb) 02/19/2020 1:57 PM CDT Height 165.1 cm (5' 5 ) 02/19/2020 1:57 PM CDT Body Mass Index 26.96 02/19/2020 1:57 PM CDT Plan of Treatment Health Maintenance Due Date Last Done Comments BONE DENSITY TESTING 1940 DTAP/TDAP/TD VACCINES (1 - Tdap) 1959 PNEUMOCOCCAL VACCINE 50+ (1 of 1 - PCV) 1990 ZOSTER VACCINE (1 of 2) 1990 Respiratory Syncytial Virus (RSV) Vaccine Pt: or over 60 yrs (1 - 1-dose 75+ series) 2015 COVID-19 VACCINE (1 - 2023-2 5 season) 2023 DEPRESSION SCREENING 05/01/2024 INFLUENZA VACCINE (Season Ended) 2024 HEPATITIS B VACCINE Aged Out No longe r eligible based on patient's age to complete this topic HIB VACCINE Aged Out No longer eligi ble based on patient's age to complete this topic HPV VACCINE Aged Out No longer eligi ble based on patient's age to complete this topic MENINGOCOCCAL (Group B) VACC INE SHARED DECISION-MAKING Aged Out No longer eligibl e based on patient's age to complete this topic MENINGOCOCCAL GROUPS A/C/Y/W VACCINE Aged Out No longer eligible b ased on patient's age to complete this topic Insurance MEDICARE COMMERCIAL GENERIC Care Teams Drop Machine Operator Relationship Specialty Start Date End Date Kenneth Chun DO [address] [place] [phone] PCP - General Internal Medicine 02/06/19
== END 2024-08-27 09:32 | disposition home or self-care (01) ==
PROVIDERS: PCP Nurse Practitioner; Visit Provider Nurse Practitioner
DX: Z95.2 Presence of prosthetic heart valve (principal); Z79.01 Long term (current) use of anticoagulants
CPT/HCPCS: 36415; 85610

== ENCOUNTER 2024-09-05 11:30 | Outpatient (CLI) | payer MEDICARE, SELFPAY ==
[2024-09-05 12:14] LABS: INR 2.6; Prothrombin Time 28.2 Seconds (11.1-14.7)
[2024-10-04 09:42] LABS: INR 2.8; Prothrombin Time 29.1 Seconds (11.1-14.7)
--- OUTSIDE RECORDS SUMMARY | 2024-10-04 12:56 | XMS_ITS | Continuity of Care Document ---
Author Organization [facility] Address [address] [place] [address] [place] [address] Phone Care Team Providers Care Hospital Medical Biller Name Role Phone Ted Bradshaw MD Unavailable Unavailable Procedures Procedure Date Office/outpatient Visit, [facility] Advance Directives Directive Yes / No Effective Date File Name No Information Encounters Encounter Description Practice Location Reason(s) For Visit Diagnoses Date Provider Providers Copied on Encounter Office/outpat ient Visit, [facility], [address], [place], [place], [id number], [place] tel:[phone] [facility] No Information [address] [facility], [place], [place], [id number], [place]. tel:[phone] Family History Family Member Type Diagnosis Age At Onset No Information Payers Payer name Insurance type Covered democrat ID Authoriza tion(s) Medicare [facility] [id number] Social History Type Description Quantity Date Captured [...]
--- OUTSIDE RECORDS SUMMARY | 2024-10-04 12:56 | XMS_ITS | Data Portability ---
Author Organization [facility] [place], [id number] [place] [address] Address [address] [place] [address] Care Team Providers Care Pipe Stress Engineer Name Role Phone VARGAS MONTAÑO Log Snaker Assessment Encounter Date Assessment Date Assessment LastModified by Organization Details LastModified Time 08/04/2020 08/04/2020 We talked about surgical nonsurgical options. She would like to do an injection today. She feels like if she has to keep doing the injection she would consider surgery. Procedure: After discussion of the risks and benefits of procedure consent was obtained. The right first A1 zach region was prepped sterilely. Injection was performed with a total of 3, cc 2 cc of 1% lidocaine without epinephrine and 1 cc of 40 mg Depo-Medrol was injected into the site infiltrating the flexor tendon sheath. Patient tolerated the procedure well and a Band-Aid was applied to the injection site. We will see how he responds over the next several weeks. We discussed signs and symptoms of adverse reaction. We discussed indications for repeat injection. Procedure: After discussion of the risks and benefits of procedure consent was obtained. The right third A1 zach region was prepped sterilely. Injection was performed with a total of 3, cc 2 cc of 1% lidocaine without epinephrine and 1 cc of 40 mg Depo-Medrol was injected into the site infiltrating the flexor tendon sheath. Patient tolerated the procedure well and a Band-Aid was applied to the injection site. We will see how he responds over the next several weeks. We discussed signs and symptoms of adverse reaction. We discussed indications for repeat injection. [email or web address] Not available 08/04/2020 11:49:51 07/09/2021 07/09/2021 Procedure: After discussion of the risks and benefits of procedure consent was obtained. The right first and third A1 zach region was prepped sterilely. Thumb injection was performed with a total of 3, cc 2 cc of 1% lidocaine without epinephrine and 1 cc of 40 mg Depo-Medrol was injected into the site infiltrating the flexor tendon sheath. Injection was repeated at the middle finger. Patient tolerated the procedure well and a Band-Aid was applied to the injection site. We will see how he responds over the next several weeks. We discussed signs and symptoms of adverse reaction. We discussed indications for repeat injection. We talked about indications for surgical release. She feels that she may want to do that if it really turns this time. Follow-up as needed if she would like to see one of our hand surgeons she will let us know [email or web address] Not available 07/09/2021 16:12:04 07/18/2022 07/18/2022 We talked about surgical nonsurgical options. She would like to do an injection today. She feels like if she has to keep doing the injection she would consider surgery. Procedure: After discussion of the risks and benefits of procedure consent was obtained. The right first A1 zach region was prepped sterilely. Injection was performed with a total of 3, cc 2 cc of 1% lidocaine without epinephrine and 1 cc of 40 mg Depo-Medrol was injected into the site infiltrating the flexor tendon sheath. Patient tolerated the procedure well and a Band-Aid was applied to the injection site. We will see how he responds over the next several weeks. We discussed signs and symptoms of adverse reaction. We discussed indications for repeat injection. Procedure: After discussion of the risks and benefits of procedure consent was obtained. The right third A1 zach region was prepped sterilely. Injection was performed with a total of 3, cc 2 cc of 1% lidocaine without epinephrine and 1 cc of 40 mg Depo-Medrol was injected into the site infiltrating the flexor tendon sheath. Patient tolerated the procedure well and a Band-Aid was applied to the injection site. We will see how he responds over the next several weeks. We discussed signs and symptoms of adverse reaction. We discussed indications for repeat injection. We discussed indications for repeat injection as well as follow-up and a timeline to do so. We discussed that there could be some increased pain over the next 24 hours as a local anesthetic wears off. Able to use ice and [id number] r analgesics as needed. Anticipate 48 to 72 hours for the steroid to take effect. She will contact us when she would like to set up a referral for trigger finger release [email or web address] Not available 07/18/2022 14:02:09 Plan of Treatment Reminders Order Date Submit Date Provider Last Modified By Organization Details Last Modified Time Details Appointments None recorded. Lab None recorded. Referral None recorded. Procedures None recorded. Surgeries None recorded. Imaging None recorded. Medication Orders Depo-Medrol 40 mg/mL suspension for injection 2022 023 [email or web address] [facility] #[id number], [address], [id number], 3 14:03:57 Depo-Medrol 40 mg/mL suspension for injection 2022 023 [email or web address] [facility] #[id number], [address], [id number], 3 14:03:57 Depo-Medrol 40 mg/mL suspension for injection 2020 021 [email or web address] [facility] #[id number], [address], [id number], 1 11:49:52 Depo-Medrol 40 mg/mL suspension for injection 2020 021 [email or web address] [facility] #[id number], [address], [id number], 1 11:49:52 Patient TargetsNo targets recorded. Patient InstructionsNo instructions recorded. Reason for Referral None Reported. Results Created Date Observation Date Name Description Value Unit Range Abnormal Flag Note LastModifiedBy Organization Detail LastModifiedTime 06/23/19 21 06/23/2020 XR, knee, 4 or more view Exam: XR Knee 4+ Views left [facility] Name: SUZY BELL t ID: [id number] XR Knee 4+ Views left. HISTOR Y:Pres ence of left artifi cial hip joint. [id number] Compar edgar: There are postop erativ e change s of a total knee prosth esis. There is good alignm ent. No compli cation is seen at this time. There is no eviden ce of prosth etic failur e. IMPRES ANGELINE: 1. Status post total knee prosth esis withou t compli cation . Comple davin Date: 9:32:4 4 AM Transc ribed Date: 9:36:0 3 AM Referr ing Provid er: Michael buchanan [employer] Report Electr onical ly Signed By: Jena hernandez MD Report Signed On: 9:36:2 4 AM [email or web address] [facility] [address] , [place], [address], 06/23/2020 12:06:32 08/05/19 21 08/04/2020 XR, hand, 3 or more view Exam: XR Hand 3+ Views right Patien t Name: SUZY BELL t ID: [id number] PROCED URE: XR Hand 3+ Views right HISTOR Y: Pain in right hand COMPAR EDGAR: None FINDIN GS AND IMPRES ANGELINE: Severe multic ompart mental DIP joint space narrow ing with overha nging margin al osteop hytes, likely reflec ting erosiv e osteoa rthrit is. No eviden ce of fractu re or disloc ation. Comple davin Date: 08/05/19 10:51: 43 AM Transc ribed Date: 08/05/19 11:43: 10 AM Referr ing Provid er: Cynthia PADILLA Report Electr onical ly Signed By: Lázaro Daugherty MD Report Signed On: 08/05/19 11:43: 43 AM [email or web address] [facility] [address] , [place], [address], 08/04/2020 15:00:39 07/03/19 22 07/02/2021 XR, knee, 4 or more view Exam: XR Knee 4+ Views left Patien t Name: SUZY BELL t ID: [id number] XR Knee 4+ Views left. HISTOR Y:Pres ence of left artifi cial knee joint. [id number] Compar edgar: 021 There are postop erativ e change s of a total knee prosth esis. There is good alignm ent. No compli cation is seen at this time. There is no eviden ce of prosth etic failur e. IMPRES ANGELINE: 1. Status post total knee prosth esis withou t compli cation . Comple davin Date: 07/03/19 10:58: 13 AM Transc ribed Date: 07/03/19 11:02: 04 AM Referr ing Provid er: Michael buchanan [employer]ER Report Electr onical ly Signed By: Jena hernandez MD Report Signed On: 07/03/19 11:02: 19 AM [email or web address] [facility] [address], [place], [address], 07/04/2021 18:34:39 08/31/19 22 08/30/2021 US, echoc ardio gram, trans thora cic, compl ete Proced ure: Transt horaci c Echoca rdiogr am Report Patien t Name: SUZY BELL Date of Exam: 08/31/19 9:11:2 7 AM Date of : 1939 Medica l Record #: [id number] Age / Gender : 81 years / F Master Patien t ID: [id number] Height : 64.0 in (162.6 cm) Access ion #: [id number] Weight : 153.0 lb (69.4 kg) Admiss ion [id number] BSA: 1.75 mA? Admiss ion Status : BP: 126/46 mmHg HR: bpm Reques ting Provid er: Nicolas Leslie MD Echo Techno logist : SM/FEC Approp riate Indica tion: Mechan ical mitral valve, preop evalua tion Additi onal Study Inform ation/ Commen ts: Study image qualit y was adequa te. SUMMAR Y: 1. Left ventri cular ejecti on fracti on, by visual estima tion, is normal : 54-60 %. 2. Modera tely dilate d left atrium . 3. S/p Mechan ical MVR. 4. Mechan ical prosth etic mitral valve, with echo findin gs reveal ing normal functi on. 5. Mild pulmon ic valve regurg itatio n. 6. Mild tricus pid regurg itatio n. 7. Saline contra st bubble study was negati ve, with no eviden ce of any intrac ardiac shunt. PHYSIC TOBY INTERP RETATI ON: Left Ventri kari: The left ventri cular internal review and audit compliance al cavity size is normal . No region al wall motion abnorm alitie s. Left ventri cular ejecti on fracti on, by visual estima tion, is normal : 54-60 %. There is indete rminat e left ventri cular diasto lic functi on. Right Ventri kari: The right ventri cular size is normal . Global RV systol ic functi on is normal by TAPSE. Left Atrium : The left atrium is modera tely dilate d. Calcul ated area is undere stimat ed. Right Atrium : The right atrium is normal in size. Shunts : Saline contra st bubble study was negati ve, with no eviden ce of any intrac ardiac shunt. Aortic Valve: The aortic valve is tricus pid. There is no aortic stenos is. No eviden ce of aortic valve regurg itatio n is seen. Mitral Valve: S/p Mechan ical MVR. Mechan ical prosth etic mitral valve is presen t. Echo findin gs of the MV prosth esis are consis tent with normal functi on. No eviden ce of mitral valve regurg itatio n is seen. MV mean PG = 7mmHg. Pulmon ic Valve: Normal pulmon ic valve struct ure and functi on. Mild pulmon ic valve regurg itatio n. Tricus pid Valve: Struct urally normal tricus pid valve, with normal leafle t excurs ion. Mild tricus pid regurg itatio n is visual ized. Aorta: The aortic root is normal in size and struct ure. Perica rdium: There is no eviden ce of perica rdial effusi on. Compar edgar to Prior Study: There is no compar edgar study availa ble. Left Ventri kari: LVIDd (2D): 5.71 cm (3.8-5 .2) LVIDs (2D): 3.64 cm (2.2-3 .5) IVSd (2D): 0.91 cm (0.6-0 .9) LVPWd (2D): 0.90 cm (0.6-0 .9) LV FS (2D): 36.3 % LV DIASTO LIC FUNCTI ON: Tissue Dopple r (later al): Latera l MV E': 0.09 m/s LA Vol s, MOD BP: 41.5 ml LA Vol s, MOD BP i: 23.8 ml/m2 LA Vol s, A4Cs 28.1 ml/mA? (22-52 ) LA Vol s, A2C 20.2 ml/mA? LA Vol s, Biplan e 23.8 ml/mA? (16-34 ) Aorta: LVOT diamet er: 2.00 cm Aortic Root (2D): 3.20 cm (2.0-3 .7) Aortic Root indexe d: 1.83 cm/mA? Right Ventri kari: RVd (2D): 3.71 cm TAPSE: 2.07 cm (>1.7) SPECTR AL DOPPLE R ANALYS IS (where applic able): Mitral Valve: MV Max Larry: 1.69 m/s MV Mean Grad: 6.3 mmHg MV VTI, Annulu s: 0.45 m Left Ventri cular Outflo w Tract: LVOT Vmax: 1.05 m/s LVOT VTI: 0.262 m LVOT Diamet er: 2.00 cm LVOT SV: 82.3 ml LVOT SI: 47.2 ml/mA? Aortic Valve: AoV Vmax: 1.91 m/s AoV Peak P.6 mmHg AoV Mean P.0 mmHg AoV VTI: 0.442 m Indexe d: AoV Area, by VTI: 1.86 cm2 1.07 cm2/m2 AoV Area, by Vmax: 1.73 cm2 AoV Area, by Vmn: 1.88 cm2 AoV Veloci ty ratio: 0.59 Tricus pid Valve and RV/PA Systol ic Pressu re: TR Vmax: 2.78 m/s TAPSE: 2.07 cm Electr onical ly signed by Elías Chen MD on 08/31/19 at 4:41:0 3 PM Final [facility] [address], [place], [address], 08/30/2021 16:41:11 04/01/20 22 03/31/2022 CT, upper extre mity, w/o contr ast Exam: CT UPPER EXT W/O left Patien t Name: SUZY BELLen t ID: [id number] CT UPPER EXTREM ITY WITHOU T CONTRA ST, LEFT INDICA TION: [id number] . Pain in left should er. COMPAR EDGAR: None. PROCED URE: Helica l CT Imagin g was obtain ed of the left should er withou t contra st. All CT protoc ols are review ed on an annual basis to ensure the minimu m effect roland radiat ion dose. Additi onally , dose loweri ng techni ques are used on each indivi dual patien t includ ing automa tic exposu re contro l, manual select ion of mAs, and manual reduct ion of kV accord ing to patien t size. FINDIN GS: Bones are demine ralize d. No aggres sive lytic or blasti c lesion s. No defini te acute fractu re or disloc ation. There is fatty atroph y of the supras pinatu s and infras pinatu s muscle bellie s. There is also tendon retrac tion of the supras pinatu s tendon consis tent with full thickn ess tearin g. There is associ ated narrow ing of the subacr omial space result ing in sclero sis and osteop hytosi s of the inferi or aspect of the acromi on and the superi or aspect of the alisson l head. There is also modera te narrow ing and osteop hytosi s of the glenoh umeral joint and severe narrow ing, sclero sis, and osteop hytosi s of the acromi oclavi cular joint. Prior sterno molly and valvul oplast y. Modera te athero sclero tic calcif icatio ns. The visual ized left lung demons trates subseg mental atelec tasis in the lower lobe. No pleura l effusi on or pneumo thorax . No visual ized suspic ious pulmon julieta nodule . No axilla ry lympha denopa thy. No soft tissue mass or fluid collec tion. There is soft tissue fullne ss surrou nding the glenoh umeral joint. IMPRES ANGELINE: 1. No acute fractu re or disloc ation. 2. Full-t hickne ss tears of the supras pinatu s and infras pinatu s tendon s with fatty atroph y of the muscle bellie s. 3. 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 4. Soft tissue fullne ss surrou nding the glenoh umeral joint. This may repres ent synovi tis and/or joint effusi on. Comple davin Date: 5:20:3 1 PM Transc ribed Date: 8:48:4 8 AM Referr ing Provid er: Nicolas Leslie MD Report Electr onical ly Signed By: Loyd Min MD Report Signed On: 8:53:5 9 AM [email or web address] [facility] [address], [place], [address], 04/01/2022 09:01:43 04/01/20 22 03/31/2022 CT, cervi jyothi spine , w/o contr ast Exam: CT CERVIC AL SPINE W/O Patien t Name: SUZY BELL t ID: [id number] CT CERVIC AL SPINE WITHOU T CONTRA ST INDICA TION: [id number] . Pain in left should er. COMPAR EDGAR: None. PROCED URE: Helica l CT imagin g was obtain ed of the cervic al spine withou t contra st. All CT protoc ols are review ed on an annual basis to ensure the minimu m effect roland radiat ion dose. Additi onally , dose loweri ng techni ques are used on each indivi dual patien t includ ing automa tic exposu re contro l, manual select ion of mAs, and manual reduct ion of kV accord ing to patien t size. FINDIN GS: No acute fractu re or listhe sis. Verteb ral body height s are well-m aintai redd. There is narrow ing, sclero sis, and osteop hytosi s at C1-C2. Junior Recruiter ior elemen ts are intact . Mild to modera te facet arthro nando. There are diffus e degene rative change s throug hout the cervic al spine result ing in straig htenin g of the normal cervic al lordos is. At C2-C3 there is mild to modera te interv ertebr al disc space narrow ing. At C3-C4 there is mild to modera te interv ertebr al disc space narrow ing. At C4-C5 there is severe disc space narrow ing with hypert rophic endpla te change s and ossifi cation of the bark grinder ior longit udinal ligame nt. Uncove rtebra l joint hypert rophy and facet arthro nando at this level contri bute to at least modera te to severe left and minima l right neurof oramin al stenos is. Mild centra l canal stenos is with mild mass effect on the spinal cord noted. At C5-C6 there is severe interv ertebr al disc space narrow ing with sclero sis, subcor tical cyst format ion, and osteop hytosi s. There is minima l ossifi cation of bark grinder ior longit udinal ligame nt. Uncove rtebra l joint hypert rophy and facet arthro nando contri bute to severe left and modera te right neural forami nal stenos is. At C6-C7 there is severe disc space narrow ing with hypert rophic endpla te change s. Facet arthro nando and uncove rtebra l joint hypert rophy contri bute to modera te bilate ral neural forami nal stenos is. Scanne d portio ns of the upper thorax are within normal limits . The parave rtebra l soft tissue s are within normal limits . IMPRES ANGELINE: 1. No acute fractu re or sublux ation. 2. Severe degene rative change s as above with multil evel severe neural forami nal stenos is as above. Ossifi cation of the bark grinder ior longit udinal ligame nt is result ing in at least mild centra l canal stenos is at C4-C5 with mass effect on the spinal cord. Comple davin Date: 5:21:3 4 PM Transc ribed Date: 8:55:5 2 AM Referr ing Provid er: Nicolas Leslie MD Report Electr onical ly Signed By: Loyd Min MD Report Signed On: 9:01:1 7 AM [facility] [address], [place], [address], 04/01/2022 09:10:02 04/01/2003/31/2022 CT, thora cic spine , w/o contr ast Exam: CT THORAC IC SPINE W/O Patien t Name: SUZY BELL t ID: [id number] CT THORAC IC SPINE WITHOU T CONTRA ST INDICA TION: [id number] . Pain in left should er. COMPAR EDGAR: None. PROCED URE: Helica l CT imagin g was obtain ed of the thorac ic spine withou t contra st. All CT protoc ols are review ed on an annual basis to ensure the minimu m effect roland radiat ion dose. Additi onally , dose loweri ng techni ques are used on each indivi dual patien t includ ing automa tic exposu re contro l, manual select ion of mAs, and manual reduct ion of kV accord ing to patien t size. FINDIN GS: No eviden ce of acute fractu re or sublux ation. Normal alignm ent is mainta ined withou t scolio sis or listhe sis. Verteb ral body height s are mainta ined. No aggres sive osseou s lesion s. There is mild to modera te interv ertebr al disc space narrow ing throug hout the mid cervic al spine. There are large anteri or osteop hytes sugges tive of dish extend ing from T4-T11 . Junior Recruiter ior elemen ts are intact . Parasp inal soft tissue s are normal . Modera te athero sclero tic calcif icatio ns noted. 3.3 cm left renal cyst noted. Artifi cial mitral valve noted. Heart is enlarg ed. Severe wylie ry artery calcif icatio ns noted. Prior sterno molly. Mild atelec tasis in the lung bases. Calcif ied granul heather in the right lower lobe. IMPRES ANGELINE: 1. No acute fractu re or listhe sis. 2. 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 Comple davin Date: 5:27:0 0 PM Transc ribed Date: 9:02:4 6 AM Referr ing Provid er: Nicolas Leslie MD Report Electr onical ly Signed By: Loyd Min MD Report Signed On: 9:07:5 2 AM [email or web address] [facility] [address] , [place], [address], 04/01/2022 09:23:48 07/19/19 23 07/18/2022 XR, hand, 3 or more view Exam: XR Hand 3+ Views right Patiestee t Name: SUZY BELL ID: [id number] XR Hand 3+ Views right HISTOR Y: Pain in right hand.M [id number] COMPAR EDGAR: 08/05/19 21 FINDIN GS: Alignm ent mainta ined. First throug h fifth digits appear intact . Change s of osteoa rthros is are again seen, stable in relati ve severi ty and distri bution . Negati ve for superi mposed acute fractu re. IMPRES ANGELINE: Unchan ged severi ty of osteoa rthros is across the hand. Comple davin Date: 1:23:1 2 PM Transc ribed Date: 3:40:0 7 PM Referr ing Provid er: Cynthia PADILLA Report Electr onical ly Signed By: Sidney Mead gton Report Signed On: 3:41:5 2 PM [email or web address] [facility] [address] , [place], [address], 07/18/2022 17:02:14 05/09/19 24 05/09/2023 , [facility] ardio gram, trans thora cic, compl ete No observ ation record ed. [facility] [address] , [place], [address], 05/16/2023 13:02:44 Result Notes None recorded. Procedures Surgical History Date Name Laterality Status Provider Name and Address Organization Details Recorded Time 07/02/2021 Procedure completed Michael Roldan NP [address], [place], [address], [facility] 07/05/2021 20:32:43 06/23/2020 Procedure completed Michael Roldan NP [address], [place], [address], [facility] 06/23/2020 20:08:40 09/10/2019 Procedure completed Mehrdad Baca MD [address], [place], [address], [facility] 09/10/2019 16:52:57 07/09/2019 Procedure completed Radha Mitchell NP [address], [place], [address], [facility] 07/10/2019 09:45:36 02/26/2019 Procedure completed Michael Roldan NP [address], [place], [address], [facility] 02/28/2019 09:14:39 Imaging Results None recorded. Procedure Notes None recorded. Medical Equipment None Reported. Allergies Allergen ID Allergen Name Allergen Category Reaction Reaction Severity Criticality Documentation Date Start Date Code Code System Note Provider Name and Address Organization Details Recorded Time [id number] tetracycl ine medicatio n rash Not available Not available 06/11/2019 90932 RxNorm Juliana sung, [facility] 0 14:05:21 [id number] morphine medicatio n vomiting Not available Not available 06/11/2019 7052 RxNorm Juliana sung, [facility] 0 14:05:32 Medications Name Sig Start Date Stop Date Status Note LastModified by Organization Details LastModified Time celecoxib 200 mg capsule TK 1 C PO QD X 14 DAYS POST-OP active Not Available Not Available No t Available cyclobenzapri ne 10 mg tablet TAKE 1 TABLET BY MOUTH THREE TIMES DAILY NEEDED FOR MUSCLE SPASM active Not Available Not Available No t Available amoxicillin 500 mg capsule TAKE 4 CAPSULES BY MOUTH 1 HOUR BEFORE DENTAL WORK FOR 1 DAY active Not Available Not Available No t Available Depo-Medrol 40 mg/mL suspension for injection Take 40 mg by injection route. 2022 active Not Available Not Available Not Avai lable omeprazole 40 mg capsule,delay ed release Take 1 capsule every day by oral route. active Not Available Not Available No t Available warfarin 3 mg tablet TAKE 1 TABLET BY MOUTH EVERY DAY active Not Available Not Available No t Available Zofran 4 mg tablet ODT 1 tab every 4-6 hrs as needed for nausea POST-OP 2019 active Not Available Not Available Not Avai lable pravastatin 80 mg tablet TAKE 1 TABLET BY MOUTH EVERY DAY active Not Available Not Available No t Available baclofen 10 mg tablet TAKE 1 TABLET BY MOUTH TWICE DAILY active Not Available Not Available No t Available pantoprazole 40 mg tablet,delaye d release active Not Available Not Available No t Available gabapentin 100 mg capsule TK 2 CS PO TID X 14 DAYS POST-OP active Not Available Not Available No t Available Aspir-81 mg tablet,delaye d release Take 1 tablet every day by oral route. active Not Available Not Available No t Available [place] 5 mg-325 mg tablet take two tabs by mouth every 6 hours as needed for pain *acute pain exception 2019 active Not Available Not Available Not Avai lable ondansetron 4 mg disintegratin g tablet DIS 1 T PO Q 4 TO 6 H PRN N POST-OP active Not Available Not Available No t Available warfarin 3 or 4 mg daily- depends on INR results active Not Available Not Available No t Available valsartan 320 mg-hydrochlor othiazide 25 mg tablet TAKE 1 TABLET BY MOUTH EVERY DAY active Not Available Not Available No t Available valsartan 320 mg-hydrochlor othiazide 12.5 mg tablet TK 1 T PO QD active Not Available Not Available No t Available Vitals Date Recorded Body height Provider Name an d Address Organization Details Last Updated DateTime 06/23/2020 165.1 cm Sameera Rodríguez [facility] 09:17:37 Date Recorded Body height Provider Name an d Address Organization Details Last Updated DateTime 07/02/2021 165.1 cm Sameera Rodríguez [facility] 10:15:44 Date Recorded Body height Body mass index (BMI) Body weight Provider Name and Address Organization Details Last Updated DateTime 07/09/2021 165.1 cm 27.6 kg/m2 54103.33 g Jane Adams [facility] 07/09/2021 15:32:21 Date Recorded Body height Body mass index (BMI) Body weight Provider Name and Address Organization Details Last Updated DateTime 08/04/2020 165.1 cm 27.6 kg/m2 21565.33 g Mae Garcia [facility] 08/04/2020 10:32:52 Social History None recorded. Functional Status None recorded. Mental Status None recorded. Family History Nothing Reported. Medical History No medical history recorded. Gynecological HistoryNo gynecological history recorded. Obstetrics History GPAL:G 0 P 0 0 0 0 Past Encounters Encounter ID Performer Location Encounter Start Date Encounter Closed Date Diagnosis/Indication Diagnosis SNOMED-CT Code Diagnosis ICD10 Code Diagnosis Note [id number] Mehrdad Baca MD [facility] [address] [facility] [address] [place] [address] 02/26/2019 14:01:30 02/26/2019 16:52:06 Osteoarthritis of left knee joint 6813230992 80049 M17.12 They have severe degenerati ve changes on their x-ray. Recommende d total joint replacemen t and feel that it is medically necessary for them to alleviate their pain and return to their previous level of function. The patient's pain is been present for some time and is now constant. They have attempted at least 3 months of treatment utilizing nonsteroid al anti-infla mmatories and prescripti on or over-the-c ounter analgesics . They cannot walk 200 feet without severe discomfort . They had attempted a physician recommende d exercise program to improve strength and range of motion. Despite these efforts the patient has severe disabling pain that affects their quality life and ability to perform functional daily activities . Pre-surger y evaluation [id number] Z01.818 The patient will need the appropriat e pre-operat roland studies (CBC, CMP, Coags, UA, CXR, EKG) and clearances . We will have the patient follow-up with us when this is completed for their pre-operat roland appointmen t. isks and benefits of the procedure were discussed. They include bleeding, infection, damage to soft tissues (nerve/art ruy/vein/m uscle/tend on/ligamen t), limb length discrepanc y, fracture, failure to fully resolve symptoms, need for further surgery, DVT/PE, cardiac complicati ons and . All questions answered. Return to clinic for preop appointmen t with Dr. Baca [id number] Mehrdad Baca MD [facility] [place] [address] [address] [address] 06/11/2019 13:43:32 06/11/2019 16:09:22 Osteoarthritis of left knee joint [id number] 40453 M17.12 Patient with severe left knee osteoarthr itis. She has failed conservati ve management strategies and now wishes to proceed with a left total knee arthroplas ty to improve lower limb function and decrease pain. Patient's pre operative requiremen ts reviewed, including clearances , lab work, and chest x ray. All results will be reviewed by Dr. Baca prior to surgery. Risks and benefits of the procedure were discussed at length. Risks include bleeding, infection, damage to soft tissues (nerve/vei n/muscle/t endon/liga ment), limb length discrepanc y, fracture, failure to fully resolve symptoms, need for further surgery, DVT/PE, cardiac complicati ons, and . All questions answered to patient satisfacti on and patient elects to proceed with surgery as planned. Post op prescripti ons to pharmacy, gabapentin , celebrex, aspirin, omeprazole , zofran. Proper medication administra tion reviewed. Dr. Baca to proceed with surgery upon receipt of EKG report. Pre-surger y evaluation [id number] Z01.818 [id number] Mehrdad Baca MD [facility] [address] [address] 07/09/2019 13:20:07 07/09/2019 14:34:15 History of total knee arthroplasty 5527535180 105 Z96.659 All questions answered. Patient to continue with physical therapy. Limitation s reviewed, no submersion of incision until fully healed, activity to progress as tolerated. Reviewed need for antibiotic coverage for any future dental or dermatolog ical procedures . Continue Coumadin as directed. We will refill [place] today. The patient is prescribed a 7 day supply of a controlled substance medication today after consulting the state required EFORCSE. Appropriat e use of medication , risks, side effects, and precaution s reviewed. Follow up with Dr. Baca in 6-8 weeks. [id number] Mehrdad Baca MD [facility] [place] [address] [address] [address] 09/10/2019 14:46:04 09/10/2019 16:13:14 Aftercare [id number] Z47.1 Patient is recovering well status post left knee replacemen t. She should continue her transition to home exercise program. Work on strength, gait and endurance. Pt was reminded of appropriat e use of prophylact ic antibiotic s for any minor surgical procedures and any dental work, including cleanings. Advised of appropriat e way to obtain prescripti on if needed. Follow-up at 1 year anniversar y. [id number] Daniel Soto PA-C [facility] [place] [address] [address] [address] 04/01/2020 14:06:45 04/01/2020 16:50:51 History of total knee arthroplasty 1722530121 105 Z96.659 Pain in left knee 558689 3677 26361 M25.562 [id number] Mehrdad Baca MD [facility] [place] [address] [address] [address] 06/23/2020 09:16:30 06/23/2020 09:45:00 History of left total knee replacement 3534538296 781044 Z96.652 Patient is now 1 year out from left total knee arthroplas ty and is extraordin arily happy with their progress. Advised to continue with their normal strength and endurance exercises. Patient will return to the office in one year for their annual followup. The patient was reminded to continue with antibiotic prophylaxi s prior to dental work. [id number] Daniel Soto PA-C [facility] [address] [address] 08/04/2020 10:20:28 08/04/2020 11:55:09 Trigger finger of right hand 2650560224 6027407 M65.30 Pain in fi nger of right hand 5277428791 46074 M79.644 Pain in right thumb 1076 212437 507607 M79.644 [id number] Michael Roldan NP [facility] [address] [address] 07/02/2021 09:57:47 07/02/2021 11:46:17 History of left total knee replacement 0163244062 501128 Z96.652 Patient is now 2 years out from left total knee arthroplas ty and is extraordin arily happy with their progress. Advised to continue with their normal strength and endurance exercises. Patient will return to the office as needed for followup. The patient was reminded to continue with antibiotic prophylaxi s prior to dental work. 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 [id number] 32889 M65.331 [id number] Daniel Soto PA-C [facility] [address] [address] 07/18/2022 13:03:22 07/18/2022 13:53:59 Trigger finger of right hand 9627328685 7432862 M65.30 Pain in fi nger of right hand 5053007400 28876 M79.644 Pain in right thumb 1076 868542 537153 M79.644 Health Concerns Section Related Observation LastModified by Organization Detai ls LastModified Time None Recorded Concern Status LastModified by Organization Details LastModified Time None Recorded Advance Directives Directive None Recorded Payers Insurance Date Sequence Insurance Name Policy Number Policy Martinez Covered Member ID Martinez Member ID Guarantor Name 05/08/2023 1 [place] Suzy Bell [id number] Suzy Bell 05/08/2023 2 [employer] (MEDICARE SUPPLEMENT) Suzy Bell [id number] Suzy Bell Notes Date Note Type Note Provider Name and Address Organization Details Recorded Time 06/23/2020 text/html Very pleasant 80-year-old female returns the office today for 1 year follow-up from left total knee arthroplasty completed on 06/28/2019. Patient states she is doing okay from a knee standpoint. She still continues to have mild swelling of the left knee especially after she is doing too much. While she feels like she is very satisfied the outcome of her surgery to this point. [address], [place], [address], [facility] 06/23/2020 20:09:18 08/04/2020 text/html Suzy is an 80-year-old female with right hand complaints. She has had trigger finger in the middle finger has had an injection a year and a half ago while living in [place]. She is having locking in the middle finger and even more so in the thumb of her right hand now. The thumb is very painful. She had no trauma or injury. Daniel Soto PA-C [address], [place], [address], [facility] 08/04/2020 11:51:08 07/02/2021 text/html Very pleasant 81-year-old female returns the office today for 2 year follow-up from left total knee arthroplasty completed on 06/28/2019. Patient states she is doing okay from a knee standpoint. She still continues to have mild swelling of the left knee especially after she is doing too much. While she feels like she is very satisfied the outcome of her surgery to this point. [address], [place], [address], [facility] 07/05/2021 20:33:18 07/09/2021 text/html Suzy is here today stating the right hand trigger thumb and middle finger trigger finger to is recurring. The thumb is locking and she actually has to manually reduce it. We did an injection for both about a year ago. She is only been having trouble with it last few weeks. She is heading back to [place] in July would like to do the injections before she leaves Daniel Soto PA-C [address] , [place], [address], [facility] 07/09/2021 16:40:53 07/18/2022 text/html Suzy 82-year-ol d female that returns today stating she would like to do the Finger injection for the right thumb and middle finger. She is wanting to do surgery but not to the fall. He has had previous injections that he worked for several months Daniel Soto PA-C [address] , [place], [address], [facility] 07/18/2022 14:03:51 OBGyn Episode No OBEpisode recorded.
--- OUTSIDE RECORDS SUMMARY | 2024-10-04 12:56 | XMS_ITS | Patient Health Record ---
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 Name Role Phone WILLIAN ROMERO Primary Care Provider [phone] Willian Romero MD Unavailable Unavailable TESSIE WHITESIDE Unavailable [phone] Allergies Allergen (clinical drug ingredient) Drug/Non Drug [...] Problem Status W/U Status Risk Notes Problem 15066117 Other specified hypothyroidism (E03.8) Active confirmed Problem 847077190 Mixed hyperlipidemia (E78.2) Active confirmed Problem Hypertensive heart disease without congestive heart failure (36824258) Hypertensive heart disease without heart failure (I11.9) Active confirmed Problem Mitral valve disorder (83943015) Nonrheumatic mitral (valve) insufficiency (I34.0) Active confirmed Problem Seasonal allergic rhinitis (046738264) Other seasonal allergic rhinitis (J30.2) Active confirmed Problem Gastrointestinal hemorrhage (24016876) Gastrointestinal hemorrhage, unspecified (K92.2) Active confirmed Problem Impaired fasting glucose (871607121) Impaired fasting glucose (R73.01) Active confirmed Problem Long-term current use of anticoagulant (818272711) group home (current) use of anticoagulants (Z79.01) Active confirmed Problem Long-term current use of drug therapy (206151143) 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) Active confirmed Problem History of heart valve repair with prosthesis (255162457432987) Presence of prosthetic heart valve (Z95.2) Active confirmed Problem 81762469 DDD (degenerativ e disc disease), lumbar (M51.36) Active confirmed Problem Transient ischemic attack (401455385) TIA (transient ischemic attack) (G45.9) Active confirmed Problem 237774629 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 angina pectoris (I25.10) Active confirmed Problem Hypertensive heart disease without congestive heart failure (91625793) Hypertensive arteriosclerotic cardiovascular disease (I11.9) Active confirmed Problem Peptic ulcer (38300472) Peptic ulcer (K27.9) Active confirmed Problem 573801956 Nonrheumatic mitral valve regurgitation (I34.0) Active confirmed Problem 817933154 GERD without esophagitis (K21.9) Active confirmed Problem Anemia due to chronic blood loss (475056465) Blood loss anemia (D50.0) Active confirmed Problem Atherosclerosis of coronary artery without angina pectoris (957094913787137) Atherosclerosis of nikolski coronary artery of nik[place]ki heart without angina pectoris (I25.10) Active confirmed Problem Cervical radiculopathy (18410754) Cervical radiculopathy (M54.12) Active confirmed Problem 30562324303280 S/P mitral valve replacement with metallic valve (Z95.4) Active confirmed Problem Thoracic radiculopathy (92385028) Thoracic radiculopathy (M54.14) Active confirmed Problem Mixed hyperlipidemia (315958813) Hyperlipemia, mixed (E78.2) Active confirmed Problem 699723955 Osteoarthritis o f spine with radiculopathy, cervical region (M47.22) Active confirmed Problem 35536170606061678 Internal derangement of left shoulder (M24.812) Active confirmed Problem 236144683 Stage 3a chronic kidney disease (CKD) (N18.31) Active confirmed Problem Mechanical heart valve prosthesis (860519078) Mechanical heart valve present (Z95.2) Active confirmed Problem 81585792 Degeneration of intervertebral disc of lumbar region [...] Dr Willian Romero MD PA [address] [facility] [address] [place], [place] [phone] 02/28/2024 WILLIAN ROMERO Hypertensive heart disease without heart failure I11.9 ; 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 angina pectoris I25.10 ; Mixed [...] valve replacement with metallic valve Z95.4 ; intermediate frame tender (current) use of anticoagulants Z79.01 ; Mechanical heart valve present Z95.2 and Encounter for immunization Z23 Dr Willian PADILLA [address] [facility] [address] [place] [id number] 04/29/2024 TESSIE WHITESIDE Hypertensive heart disease without heart failure I11.9 ; 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 angina pectoris I25.10 ; Mixed [...] valve replacement with metallic valve Z95.4 ; group home (current) use of anticoagulants Z79.01 ; Mechanical heart valve present Z95.2 ; Encounter for general adult medical examination without abnormal findings Z00.00 ; Encounter for immunization Z23 and Stage 3a chronic kidney disease (CKD) N18.31 Dr Willian PADILLA [address] [facility] [address] [place] [address] [id number] 03/01/2024 WILLIAN ROMERO S/P mitral valve replacement with metallic valve Z95.4 and Mechanical heart valve present Z95.2 Dr Willian Romero MD PA [address] [facility] [address] [place] [address] [id number] 03/15/2024 TESSIE Romero MD PA [address] [facility] [address] [place] [address] [id number] 03/18/2024 WILLIAN ROMERO S/P mitral valve replacement with metallic valve Z95.4 Dr Willian Romero MD PA [address] [facility] [address] [place] [address] [id number] 04/04/2024 WILLIAN Romero MD PA [address] [facility] [address] [place] [address] [id number] 04/18/2024 WILLIAN Romero MD PA [address] [facility] [address] [place] [address] [id number] 05/08/2024 WILLIAN Romero MD PA [address] [facility] [address] [place] [address] [id number] 05/22/2024 WILLIAN Romero MD PA [address] [facility] [address] [place] [address] [id number] 06/06/2024 WILLIAN ROMERO S/P mitral valve replacement with metallic valve Z95.4 Dr Willian Romero MD PA [address] [facility] [address] [place] [address] [id number] 06/20/2024 WILLIAN Romero MD PA [address] [facility] [address] [place] [address] [id number] 07/03/2024 WILLIAN ROMERO S/P mitral valve replacement with metallic valve Z95.4 Dr Willian Romero MD PA [address] [facility] [address] [place] [address] [id number] 07/17/2024 WILLIAN Romero MD PA [address] [facility] [address] [place] [address] [id number] 07/31/2024 WILLIAN Romero MD PA [address] [id number] 08/14/2024 WILLIAN ROMERO Assessments Encounter Date Diagnosis (ICD Code) Assessment Notes Treatment Notes Treatment Clinical Notes Section Notes 07/03/2024 S/P mitral valve replacement with metallic valve (ICD-10 - Z95.4) 03/18/2024 S/P mitral valve replacement with metallic valve (ICD-10 - Z95.4) 03/01/2024 S/P mitral valve replacement with metallic valve (ICD-10 - Z95.4) 06/06/2024 S/P mitral valve replacement with metallic valve (ICD-10 - Z95.4) 02/28/2024 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 angina pectoris (ICD-10 - I25.10) == : CAD status post PTCA: No chest pain or dyspnea Per cardiology in [place] On Plavix, statin, beta-mara. Continue 2D echo [...] Hypothyroidis m: On levothyroxine . Continue 04/29/2024 Hypertensive heart disease without heart failure (ICD-10 - I11.9) == CAD status post PTCA: No chest pain or dyspnea Per cardiology in [place] On Plavix, statin, beta-mara. Continue 2D echo [...] On levothyroxine . Continue TFT normal 04/29/2024 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 angina pectoris (ICD-10 - I25.10) == CAD status post PTCA: No chest pain or dyspnea Per cardiology in [place] On Plavix, statin, beta-mara. Continue 2D echo [...] On levothyroxine . Continue TFT normal 02/28/2024 Hypertensive heart disease without heart failure (ICD-10 - I11.9) == : CAD status post PTCA: No chest pain or dyspnea Per cardiology in [place] On Plavix, statin, beta-mara. Continue 2D echo [...] Mechanical heart valve present (ICD-10 - Z95.2) 02/28/2024 Mixed hyperlipidemia (ICD-10 - E78.2) == : CAD status post PTCA: No chest pain or dyspnea Per cardiology in [place] On Plavix, statin, beta-mara. Continue 2D echo [...] Hypothyroidis m: On levothyroxine . Continue 04/29/2024 Mixed hyperlipidemia (ICD-10 - E78.2) == CAD status post PTCA: No chest pain or dyspnea Per cardiology in [place] On Plavix, statin, beta-mara. Continue 2D echo [...] chest pain or dyspnea Per cardiology in [place] On Plavix, statin, beta-mara. Continue 2D echo [...] chest pain or dyspnea Per cardiology in [place] On Plavix, statin, beta-mara. Continue 2D echo [...] chest pain or dyspnea Per cardiology in [place] On Plavix, statin, beta-mara. Continue 2D echo [...] On levothyroxine . Continue TFT normal 02/28/2024 Other specified hypothyroidism (ICD-10 - E03.8) == : CAD status post PTCA: No chest pain or dyspnea Per cardiology in [place] On Plavix, statin, beta-mara. Continue 2D echo [...] chest pain or dyspnea Per cardiology in [place] On Plavix, statin, beta-mara. Continue 2D echo [...] chest pain or dyspnea Per cardiology in [place] On Plavix, statin, beta-mara. Continue 2D echo [...] Hypothyroidis m: On levothyroxine . Continue 02/28/2024 Nonrheumatic mitral valve regurgitation (ICD-10 - I34.0) == : CAD status post PTCA: No chest pain or dyspnea Per cardiology in [place] On Plavix, statin, beta-mara. Continue 2D echo [...] Hypothyroidis m: On levothyroxine . Continue 04/29/2024 Osteoarthritis of spine with radiculopathy, cervical region (ICD-10 - M47.22) == CAD status post PTCA: No chest pain or dyspnea Per cardiology in [place] On Plavix, statin, beta-mara. Continue 2D echo [...] On levothyroxine . Continue TFT normal 02/28/2024 DDD (degenerative disc disease), lumbar (ICD-10 - M51.36) == : CAD status post PTCA: No chest pain or dyspnea Per cardiology in [place] On Plavix, statin, beta-mara. Continue 2D echo [...] chest pain or dyspnea Per cardiology in [place] On Plavix, statin, beta-mara. Continue 2D echo [...] chest pain or dyspnea Per cardiology in [place] On Plavix, statin, beta-mara. Continue 2D echo [...] Hypothyroidis m: On levothyroxine . Continue 04/29/2024 GERD without esophagitis (ICD-10 - K21.9) == CAD status post PTCA: No chest pain or dyspnea Per cardiology in [place] On Plavix, statin, beta-mara. Continue 2D echo [...] On levothyroxine . Continue TFT normal 02/28/2024 TIA (transient ischemic attack) (ICD-10 - G45.9) == : CAD status post PTCA: No chest pain or dyspnea Per cardiology in [place] On Plavix, statin, beta-mara. Continue 2D echo [...] chest pain or dyspnea Per cardiology in [place] On Plavix, statin, beta-mara. Continue 2D echo [...] chest pain or dyspnea Per cardiology in [place] On Plavix, statin, beta-mara. Continue 2D echo [...] Hypothyroidis m: On levothyroxine . Continue 04/29/2024 TIA (transient ischemic attack) (ICD-10 - G45.9) == CAD status post PTCA: No chest pain or dyspnea Per cardiology in [place] On Plavix, statin, beta-mara. Continue 2D echo [...] On levothyroxine . Continue TFT normal 04/29/2024 S/P mitral valve replacement with metallic valve (ICD-10 - Z95.4) == CAD status post PTCA: No chest pain or dyspnea Per cardiology in [place] On Plavix, statin, beta-mara. Continue 2D echo [...] On levothyroxine . Continue TFT normal 02/28/2024 Osteoarthritis of spine with radiculopathy, cervical region (ICD-10 - M47.22) == : CAD status post PTCA: No chest pain or dyspnea Per cardiology in [place] On Plavix, statin, beta-mara. Continue 2D echo [...] Hypothyroidis m: On levothyroxine . Continue 02/28/2024 S/P mitral valve replacement with metallic valve (ICD-10 - Z95.4) == : CAD status post PTCA: No chest pain or dyspnea Per cardiology in [place] On Plavix, statin, beta-mara. Continue 2D echo [...] Hypothyroidis m: On levothyroxine . Continue 04/29/2024 intermediate frame tender (current) use of anticoagulants (ICD-10 - Z79.01) == CAD status post PTCA: No chest pain or dyspnea Per cardiology in [place] On Plavix, statin, beta-mara. Continue 2D echo [...] On levothyroxine . Continue TFT normal 04/29/2024 Mechanical heart valve present (ICD-10 - Z95.2) == CAD status post PTCA: No chest pain or dyspnea Per cardiology in [place] On Plavix, statin, beta-mara. Continue 2D echo [...] On levothyroxine . Continue TFT normal 02/28/2024 group home (current) use of anticoagulants (ICD-10 - Z79.01) == : CAD status post PTCA: No chest pain or dyspnea Per cardiology in [place] On Plavix, statin, beta-mara. Continue 2D echo [...] Hypothyroidis m: On levothyroxine . Continue 02/28/2024 Mechanical heart valve present (ICD-10 - Z95.2) == : CAD status post PTCA: No chest pain or dyspnea Per cardiology in [place] On Plavix, statin, beta-mara. Continue 2D echo [...] chest pain or dyspnea Per cardiology in [place] On Plavix, statin, beta-mara. Continue 2D echo [...] chest pain or dyspnea Per cardiology in [place] On Plavix, statin, beta-mara. Continue 2D echo [...] chest pain or dyspnea Per cardiology in [place] On Plavix, statin, beta-mara. Continue 2D echo [...] chest pain or dyspnea Per cardiology in [place] On Plavix, statin, beta-mara. Continue 2D echo [...] chest pain or dyspnea Per cardiology in [place] On Plavix, statin, beta-mara. Continue 2D echo [...] Lipid Panel 03/29/2023 Comp. Metabolic Panel (14) 04/08/2022 Comp. Metabolic Panel (14) 03/29/2023 Comp. Metabolic Panel (14) 02/28/2024 CBC 02/28/2024 CBC 03/29/2023 CBC 04/08/2022 Prothrombin Time with INR (PT/INR) 07/03 Prothrombin Time with INR (PT/INR) 06/06 Prothrombin Time with INR (PT/INR) 03/18 Prothrombin Time with INR (PT/INR) 03/30 Prothrombin Time with INR (PT/INR) 03/29 Prothrombin Time with INR (PT/INR) 08/03 Ultrasound : Thyroid Sonography B-Scan 1 05/29/2022 Echocardiogram, doppler exam 04/14/2023 LIPID PANEL, STANDARD (7600) 04/29/2024 TSH+FREE T4 (42423) 04/29/2024 COMPREHENSIVE METABOLIC PANEL (36472) CBC (H/H, RBC, INDICES, WBC, PLT) (1759) 04/29/2024 HEMOGLOBIN A1c (496) 04/29/2024 Next Appt Details Provider Name:TESSIE YA, 03/31/2025 01:00:00 PM, [address] [facility], [address], [place], [place], [phone], Insurance Providers Payer Name Payer Address Payer Phone Subscriber Number Group Number Insured Name Patient Relationship to Insured Coverage Start Date Coverage End Date MEDICARE [address] [address] [place] [address] [id number] SUZY BELL Self - patient is the insured Field Agent [address] [address] [place] [address] [id number] SUZY BELL Self - patient is the insured Medical (General) History Medical History History ICD Code Hypertensive heart disease without heart failure I11.9 Atherosclerosis of nikolski co ronary artery of nikolski heart without angina pectoris I25.10 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
--- OUTSIDE RECORDS SUMMARY | 2024-10-04 12:56 | XMS_ITS | Clinical Summary ---
Author Organization [facility] Address [address] [place] [address] Phone Care Team Providers Care Drier Unloader Name Role Phone Edgar Gay MD Primary [...] migh t be different from the original. Financial Systems Manager - Dr Bishnu Garibay Problem Noted Date Diagnosed Date S/P MVR (mitral valve replacement) Overview (03/03/2010): due to mitral regurgitation 2000 at [facility] in [place], [place], followed by prosthetic mitral valve replacement 08-30-[address] Meño Schulz (24-mm ATS AP valve). Most recent echocardiogram (04-21-08): grossly normal prosthetic mitral valve with 2.9 mmHg mean diastolic gradient, pressure half time 112 milliseconds, valve area 2.0 cm squared, with normal left ventricular function. 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
--- OUTSIDE RECORDS SUMMARY | 2024-10-04 12:56 | XMS_ITS | Clinical Summary ---
Author Organization [facility] Address [address] [place] [address] Care Team Providers Care Burnisher And Bumper Name Role Phone Kenneth Chun Primary Care Provider [phone] Source Comments [facility],non-owned Affiliates and Associated Physician Practices is amultiple site organization consisting of ambulatory clinics and hospital sitesin [place], [place], [place] and [place]. This disclosure is being madepursuant to the Care Everywhere program and may not contain all information available regarding this patient. Last updated 18.[facility] [employer] Allergies Active Allergy Reactions Criticality Noted Date [...] migh t be different from the original. Hotel Recreational Facilities Manager- Dr. 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
== END 2024-10-04 08:50 | disposition home or self-care (01) ==
PROVIDERS: PCP Nurse Practitioner; Visit Provider Nurse Practitioner
DX: Z51.81 Encounter for therapeutic drug level monitoring (principal); Z95.2 Presence of prosthetic heart valve; Z79.01 Long term (current) use of anticoagulants
CPT/HCPCS: 36415; 85610

== ENCOUNTER 2024-10-29 08:27 | Outpatient (CLI) | payer MEDICARE, SELFPAY ==
--- OUTSIDE RECORDS SUMMARY | 2024-10-29 08:33 | XMS_ITS | Clinical Summary ---
Author Organization [facility] Address [address] [place] [address] Care Team Providers Care Sweatband Cutting Machine Operator Name Role Phone Unavailable Primary Care Provider [...]
--- OUTSIDE RECORDS SUMMARY | 2024-10-29 08:33 | XMS_ITS | Clinical Summary ---
Author Organization [facility] Address [address] [place] [address] Care Team Providers Care Electronics Hardware Design Engineer Name Role Phone Kenneth Chun Primary Care Provider [phone] Source Comments [facility],non-owned Affiliates and Associated Physician Practices is amultiple site organization consisting of ambulatory clinics and hospital sitesin [place], [place], [place] and [place]. This disclosure is being madepursuant to the Care Everywhere program and may not contain all information available regarding this patient. Last updated 18.[facility] [employer] Allergies Active Allergy Reactions Criticality Noted Date [...] migh t be different from the original. Nurse Informaticist- Dr. Bishnu Garibay Problem Noted Date Diagnosed Date Atherosclerosis of [place] co ronary artery of [place] heart without angina pectoris 08/19/2016 Non-rheumatic tricuspid [...] topic Insurance MEDICARE COMMERCIAL GENERIC Care Teams Electronics Hardware Design Engineer Relationship Specialty Start Date End Date Kenneth Chun DO [address] [place] [phone] PCP - General Internal Medicine 02/06/19
--- OUTSIDE RECORDS SUMMARY | 2024-10-29 08:33 | XMS_ITS | Data Portability ---
Author Organization [facility] [employer] [facility] [address] [place] [address] Care Team Providers Care Systems Designer Name Role Phone VARGAS MONTAÑO Commercial Construction Project Manager Assessment Encounter Date Assessment Date Assessment LastModified [...] reaction. We discussed indications for repeat injection. [email or web address] Not available 08/04/2020 11:49:51 07/09/2021 07/09/2021 Procedure: [...] hand surgeons she will let us know [email or web address] Not available 07/09/2021 16:12:04 07/18/2022 07/18/2022 We [...] wears off. Able to use ice and [id number] r analgesics as needed. Anticipate 48 to [...] 40 mg/mL suspension for injection 2022 023 [facility][id number], [address], [id number], 3 14:03:57 Depo-Medrol 40 mg/mL suspension for injection 2022 023 [facility] #[id number], [address], [id number], 3 14:03:57 Depo-Medrol 40 mg/mL suspension for injection 2020 021 [facility] #[id number], [address], [id number], 1 11:49:52 Depo-Medrol 40 mg/mL suspension for injection 2020 021 [facility] #[id number], [address], [id number], 1 11:49:52 Patient TargetsNo targets recorded. Patient InstructionsNo instructions recorded. Reason for Referral None Reported. Results Created Date Observation Date Name Description Value Unit Range Abnormal Flag Note LastModifiedBy Organization Detail LastModifiedTime 06/23/19 21 06/23/2020 XR, knee, 4 or more view Exam: XR Knee 4+ Views left Ketty t Name: SUZY BELL t ID: [id number] XR Knee 4+ Views left. HISTOR Y:Pres ence of left artifi cial hip joint. [id number] Compar edgar: There are postop erativ e [...] AM Referr ing Provid er: Michael buchanan BOSS DYER Report Electr onical ly Signed By: Jena hernandez MD Report Signed On: 9:36:2 4 AM [email or web address] [facility] [address] , [place], [address], 06/23/2020 12:06:32 08/05/19 21 08/04/2020 XR, hand, 3 or more view Exam: XR Hand 3+ Views right Ketty t Name: SUZY BELL t ID: [id number] PROCED URE: XR Hand 3+ Views [...] Report Signed On: 08/05/19 11:43: 43 AM [email or web address] [facility] [address] , [place], [address], 08/04/2020 15:00:39 07/03/19 22 07/02/2021 XR, knee, 4 or more view Exam: XR Knee 4+ Views left Patien t Name: SUZY BELL t ID: [id number] XR Knee 4+ Views left. HISTOR Y:Pres ence of left artifi cial knee joint. [id number] Compar edgar: 021 There are postop erativ [...] AM Referr ing Provid er: Michael buchanan BOSS DYER Report Electr onical ly Signed By: Jena hernandez MD Report Signed On: 07/03/19 11:02: 19 AM [email or web address] [facility] [address], [place], [address], 07/04/2021 18:34:39 08/31/19 22 08/30/2021 US, echoc ardio gram, trans thora cic, compl ete Proced ure: Transt horaci c Echoca rdiogr am Report Patien t Name: SUZY BELL Date of Exam: 08/31/19 9:11:2 7 AM Date of : 1939 Medica l Record #: [id number] Age / Gender : 81 years / F Master Patien t ID: [id number] Height : 64.0 in (162.6 cm) Access ion #: [id number] Weight : 153.0 lb (69.4 kg) Admiss ion 42972 BSA: 1.75 mA? Admiss ion Status : [...] Ventri kari: The left ventri cular internal medicine nurse practitioner al cavity size is normal . No [...] on 08/31/19 at 4:41:0 3 PM Final [facility] [address], [place], [address], 08/30/2021 16:41:11 04/01/20 22 03/31/2022 CT, upper extre mity, w/o contr ast Exam: CT UPPER EXT W/O left Patien t Name: SUZY BELL t ID: [id number] CT UPPER EXTREM ITY WITHOU T CONTRA ST, LEFT INDICA TION: [id number] . Pain in left should er. COMPAR [...] and the superi or aspect of the alsison l head. There is also modera te [...] MD Report Signed On: 8:53:5 9 AM [email or web address] [facility] [address], [place], [address], 04/01/2022 09:01:43 04/01/20 22 03/31/2022 CT, cervi jyothi spine , w/o contr ast Exam: CT CERVIC AL SPINE W/O Patien t Name: SUZY BELL t ID: [id number] CT CERVIC AL SPINE WITHOU T CONTRA ST INDICA TION: [id number] . Pain in left should er. COMPAR [...] sis, and osteop hytosi s at C1-C2. Big Data Engineer ior elemen ts are intact . Mild [...] change s and ossifi cation of the rn community ior longit udinal ligame nt. Uncove rtebra [...] There is minima l ossifi cation of rn community ior longit udinal ligame nt. Uncove rtebra [...] is as above. Ossifi cation of the rn community ior longit udinal ligame nt is result ing in at least mild centra l canal stenos is at C4-C5 with mass effect on the spinal cord. Comple davin Date: 5:21:3 4 PM Transc ribed Date: 8:55:5 2 AM Referr ing Provid er: Nicolas Leslie MD Report Electr onical ly Signed By: Loyd Min MD Report Signed On: 9:01:1 7 AM [email or web address] [facility] [address], [place], [address], 04/01/2022 09:10:02 04/01/20 22 03/31/2022 CT, thora cic spine , w/o contr ast Exam: CT THORAC IC SPINE W/O Patien t Name: SUZY BELL t ID: [id number] CT THORAC IC SPINE WITHOU T CONTRA ST INDICA TION: [id number] . Pain in left should er. COMPAR [...] of dish extend ing from T4-T11 . Big Data Engineer ior elemen ts are intact . Parasp [...] MD Report Signed On: 9:07:5 2 AM [facility] [address] , [place], [address], 04/01/2022 09:23:48 07/19/19 23 07/18/2022 XR, hand, 3 or more view Exam: XR Hand 3+ Views right Patiestee t Name: SUZY BELL ID: [id number] XR Hand 3+ Views right HISTOR Y: Pain in right hand.M [id number] COMPAR EDGAR: 08/05/19 21 FINDIN GS: Alignm [...] 3:40:0 7 PM Referr ing Provid er: Angela Soto PA Report Electr onical ly Signed By: Sidney Mead gton Report Signed On: 3:41:5 2 PM [email or web address] [facility] [address] , [place], [address], 07/18/2022 17:02:14 05/09/19 24 05/09/2023 , [facility] arronalo gram, trans thora cic, compl ete No observ ation record ed. Formerly [facility] [address] , [place], [address], 05/16/2023 13:02:44 Result Notes Documentation Provider Name and Address Organization Details Recorded Time Xr, Knee, 4 Or More View : Exam: XR Knee 4+ Views left Patient Name: SUZY BELL XR Knee 4+ Views left. HISTORY:Presence of left artificial hip joint. [id number] Comparison: 04/01/2020 There are postoperative changes of a total knee prosthesis. There is good alignment. No complication is seen at this time. There is no evidence of prosthetic failure. IMPRESSION: 1. Status post total knee prosthesis without complication. Completed Date: 06/23/2020 9:32:44 AM Transcribed Date: 06/23/2020 9:36:03 AM Referring Provider: Michael LECHUGA Report Electronically Signed By: Jena Smyth MD Report Signed On: 06/23/2020 9:36:24 AM Michael Roldan NP [address], [place], [address], [facility] 06/23/2020 12:06:32 Xr, Hand, 3 Or More View : Exam: XR Hand 3+ Views right Patient Name: SUZY BELL PROCEDURE: XR Hand 3+ Views right HISTORY: Pain in right hand COMPARISON: None FINDINGS AND IMPRESSION: Severe multicompartmental DIP joint space narrowing with overhanging marginal osteophytes, 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 No evidence of fracture or dislocation. Completed Date: 08/04/2020 10:51:43 AM Transcribed Date: 08/04/2020 11:43:10 AM Referring Provider: Daniel PADILLA Report Electronically Signed By: Lázaro Daugherty MD Report Signed On: 08/04/2020 11:43:43 AM Daniel Soto PA-C [address], [place], [address], [facility] 08/04/2020 15:00:39 Xr, Knee, 4 Or More View : Exam: XR Knee 4+ Views left Patient Name: SUZY BELL XR Knee 4+ Views left. HISTORY:Presence of left artificial knee joint. [id number] Comparison: 06/23/2020 There are postoperative changes of a total knee prosthesis. There is good alignment. No complication is seen at this time. There is no evidence of prosthetic failure. IMPRESSION: 1. Status post total knee prosthesis without complication. Completed Date: 07/02/2021 10:58:13 AM Transcribed Date: 07/02/2021 11:02:04 AM Referring Provider: Michael LECHUGA Report Electronically Signed By: Jena Smyth MD Report Signed On: 07/02/2021 11:02:19 AM Michael Roldan NP [address] , [place], [address], [facility] 07/04/2021 18:34:39 Ct, Upper Extremity, W/o Contrast : Exam: CT UPPER EXT W/O left Patient Name: SUZY BELL CT UPPER EXTREMITY WITHOUT CONTRAST, LEFT INDICATION: [id number]. Pain in left shoulder. COMPARISON: None. PROCEDURE: Helical CT Imaging was obtained of the left shoulder without contrast. All CT protocols are reviewed on an annual basis to ensure the minimum effective radiation dose. Additionally, dose lowering techniques are used on each individual patient including automatic exposure control, manual selection of mAs, and manual reduction of kV according to patient size. FINDINGS: Bones are demineralized. No aggressive lytic or blastic lesions. No definite acute fracture or dislocation. There is fatty atrophy of the supraspinatus and infraspinatus muscle bellies. There is also tendon retraction of the supraspinatus tendon consistent with full thickness tearing. There is associated narrowing of the subacromial space resulting in sclerosis and osteophytosis of the inferior aspect of the acromion and the superior aspect of the humeral head. There is also moderate narrowing and osteophytosis of the glenohumeral joint and severe narrowing, sclerosis, and osteophytosis of the acromioclavicular joint. Prior sternotomy and valvuloplasty. Moderate atherosclerotic calcifications. The visualized left lung demonstrates subsegmental atelectasis in the lower lobe. No pleural effusion or pneumothorax. No visualized suspicious pulmonary nodule. No axillary lymphadenopathy. No soft tissue mass or fluid collection. There is soft tissue fullness surrounding the glenohumeral joint. IMPRESSION: 1. No acute fracture or dislocation. 2. Full-thickness tears of the supraspinatus and infraspinatus tendons with fatty atrophy of the muscle bellies. 3. Severe degenerative changes in the acromioclavicular joint, glenohumeral joint, as well as severe narrowing of the subacromial space with secondary osseous changes. 4. Soft tissue fullness surrounding the glenohumeral joint. This may represent synovitis and/or joint effusion. Completed Date: 03/31/2022 5:20:31 PM Transcribed Date: 04/01/2022 8:48:48 AM Referring Provider: Willian Leslie MD Report Electronically Signed By: Manuel Min MD Report Signed On: 04/01/2022 8:53:59 AM [facility] 04/01/2022 09:01:43 Ct, Cervical Spine, W/o Contrast : Exam: CT CERVICAL SPINE W/O Patient Name: SUZY BELL CT CERVICAL SPINE WITHOUT CONTRAST INDICATION: [id number]. Pain in left shoulder. COMPARISON: None. PROCEDURE: Helical CT imaging was obtained of the cervical spine without contrast. All CT protocols are reviewed on an annual basis to ensure the minimum effective radiation dose. Additionally, dose lowering techniques are used on each individual patient including automatic exposure control, manual selection of mAs, and manual reduction of kV according to patient size. FINDINGS: No acute fracture or listhesis. Vertebral body heights are well-maintained. There is narrowing, sclerosis, and osteophytosis at C1-C2. Posterior elements are intact. Mild to moderate facet arthropathy. There are diffuse degenerative changes throughout the cervical spine resulting in straightening of the normal cervical lordosis. At C2-C3 there is mild to moderate intervertebral disc space narrowing. At C3-C4 there is mild to moderate intervertebral disc space narrowing. At C4-C5 there is severe disc space narrowing with hypertrophic endplate changes and ossification of the posterior longitudinal ligament. Uncovertebral joint hypertrophy and facet arthropathy at this level contribute to at least moderate to severe left and minimal right neuroforaminal stenosis. Mild central canal stenosis with mild mass effect on the spinal cord noted. At C5-C6 there is severe intervertebral disc space narrowing with sclerosis, subcortical cyst formation, and osteophytosis. There is minimal ossification of posterior longitudinal ligament. Uncovertebral joint hypertrophy and facet arthropathy contribute to severe left and moderate right neural foraminal stenosis. At C6-C7 there is severe disc space narrowing with hypertrophic endplate changes. Facet arthropathy and uncovertebral joint hypertrophy contribute to moderate bilateral neural foraminal stenosis. Scanned portions of the upper thorax are within normal limits. The paravertebral soft tissues are within normal limits. IMPRESSION: 1. No acute fracture or subluxation. 2. Severe degenerative changes as above with multilevel severe neural foraminal stenosis as above. Ossification of the posterior longitudinal ligament is resulting in at least mild central canal stenosis at C4-C5 with mass effect on the spinal cord. Completed Date: 03/31/2022 5:21:34 PM Transcribed Date: 04/01/2022 8:55:52 AM Referring Provider: Willian Leslie MD Report Electronically Signed By: Manuel Min MD Report Signed On: 04/01/2022 9:01:17 AM [facility], [facility] 04/01/2022 09:10:02 Ct, Thoracic Spine, W/o Contrast : Exam: CT THORACIC SPINE W/O Patient Name: SUZY BELL CT THORACIC SPINE WITHOUT CONTRAST INDICATION: [id number]. Pain in left shoulder. COMPARISON: None. PROCEDURE: Helical CT imaging was obtained of the thoracic spine without contrast. All CT protocols are reviewed on an annual basis to ensure the minimum effective radiation dose. Additionally, dose lowering techniques are used on each individual patient including automatic exposure control, manual selection of mAs, and manual reduction of kV according to patient size. FINDINGS: No evidence of acute fracture or subluxation. Normal alignment is maintained without scoliosis or listhesis. Vertebral body heights are maintained. No aggressive osseous lesions. There is mild to moderate intervertebral disc space narrowing throughout the mid cervical spine. There are large anterior osteophytes suggestive of dish extending from T4-T11. Posterior elements are intact. Paraspinal soft tissues are normal. Moderate atherosclerotic calcifications noted. 3.3 cm left renal cyst noted. Artificial mitral valve noted. Heart is enlarged. Severe coronary artery calcifications noted. Prior sternotomy. Mild atelectasis in the lung bases. Calcified granuloma in the right lower lobe. IMPRESSION: 1. No acute fracture or listhesis. 2. 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 Completed Date: 03/31/2022 5:27:00 PM Transcribed Date: 04/01/2022 9:02:46 AM Referring Provider: Willian Leslie MD Report Electronically Signed By: Manuel Min MD Report Signed On: 04/01/2022 9:07:52 AM Ab [facility], [facility] 04/01/2022 09:23:48 Xr, Hand, 3 Or More View : Exam: XR Hand 3+ Views right Patient Name: SUZY BELL XR Hand 3+ Views right HISTORY: Pain in right hand.[id number] COMPARISON: 08/04/2020 FINDINGS: Alignment maintained. First through fifth digits appear intact. Changes of osteoarthrosis are again seen, stable in relative severity and distribution. Negative for superimposed acute fracture. IMPRESSION: Unchanged severity of osteoarthrosis across the hand. Completed Date: 07/18/2022 1:23:12 PM Transcribed Date: 07/18/2022 3:40:07 PM Referring Provider: Daniel PADILLA Report Electronically Signed By: Sidney Bethea Report Signed On: 07/18/2022 3:41:52 PM Daniel Soto PA-C [address], [place], [address], [facility] 07/18/2022 17:02:14 Procedures Surgical History Date Name Laterality Status Provider Name and Address Organization Details Recorded Time 07/02/2021 Procedure completed Michael Roldan NP [address], [place], [address], [facility] 07/05/2021 20:32:43 06/23/2020 Procedure completed Michael Roldan NP [address], [place], [address], [facility] 06/23/2020 20:08:40 09/10/2019 Procedure completed Mehrdad Baca MD [address], [place], [address], [facility] 09/10/2019 16:52:57 07/09/2019 Procedure completed Radha Mitchell, COUNTY ADVISER [address] , [place], [address], [facility] 07/10/2019 09:45:36 02/26/2019 Procedure completed Michael Jamar COUNTY ADVISER [address] , [place], [address], [facility] 02/28/2019 09:14:39 Imaging Results None recorded. Procedure Notes None recorded. Medical Equipment None Reported. Allergies Allergen ID Allergen Name Allergen Category Reaction Reaction Severity Criticality Documentation Date Start Date Code Code System Note Provider Name and Address Organization Details Recorded Time 1207094 tetracycl ine medicatio n rash Not available Not available 06/11/2019 29560 RxNorm Juliana [facility] 0 14:05:21 [id number] morphine medicatio n vomiting Not available Not available 06/11/2019 7052 RxNorm Juliana [facility] 0 14:05:32 Medications Name Sig Start [...] Not Available Not Available No t Available [place] 5 mg-325 mg tablet take two tabs [...] Last Updated DateTime 06/23/2020 165.1 cm Sameera [facility] 09:17:37 Date Recorded Body height Provider Name an d Address Organization Details Last Updated DateTime 07/02/2021 165.1 cm Sameera [facility] 10:15:44 Date Recorded Body height Body mass index (BMI) Body weight Provider Name and Address Organization Details Last Updated DateTime 07/09/2021 165.1 cm 27.6 kg/m2 05162.33 g Jane Adams [facility] 07/09/2021 15:32:21 Date Recorded Body height Body mass index (BMI) Body weight Provider Name and Address Organization Details Last Updated DateTime 08/04/2020 165.1 cm 27.6 kg/m2 86024.33 g Mae Garcia [facility] 08/04/2020 10:32:52 Social History None recorded. Functional Status None recorded. Mental Status None recorded. Family History Nothing Reported. Medical History No medical history recorded. Gynecological HistoryNo gynecological history recorded. Obstetrics History GPAL:G 0 P 0 0 0 0 Past Encounters Encounter ID Performer Location Encounter Start Date Encounter Closed Date Diagnosis/Indication Diagnosis SNOMED-CT Code Diagnosis ICD10 Code Diagnosis Note [id number] MD SUSANA LunaL[facility]_ [facility] [address] [facility] [address] [place] [address] 02/26/2019 14:01:30 02/26/2019 16:52:06 Osteoarthritis of left knee joint 6251640478 73452 M17.12 They have severe degenerati ve changes [...] functional daily activities . Pre-surger y evaluation 106125463 Z01.818 The patient will need the appropriat [...] for preop appointmen t with Dr. Baca [id number] Mehrdad Baca MD [facility] [address] [facility] [address] [place] [address] 06/11/2019 13:43:32 06/11/2019 16:09:22 Osteoarthritis of left knee joint 5478226519 26992 M17.12 Patient with severe left knee osteoarthr itis. She has failed conservati ve management strategies and now wishes to proceed with a left total knee arthroplas ty to improve lower limb function and decrease pain. Patient's pre operative requiremen ts reviewed, including clearances , lab work, and chest x ray. All results will be reviewed by Dr. aBca prior to surgery. Risks and benefits of [...] receipt of EKG report. Pre-surger y evaluation 544010918 Z01.818 [id number] Mehrdad Baca MD [facility] [place] [address] [address] [address] 07/09/2019 13:20:07 07/09/2019 14:34:15 History of total knee arthroplasty 5011256318 105 Z96.659 All questions answered. Patient to continue with physical therapy. Limitation s reviewed, no submersion of incision until fully healed, activity to progress as tolerated. Reviewed need for antibiotic coverage for any future dental or dermatolog ical procedures . Continue Coumadin as directed. We will refill [place] today. The patient is prescribed a 7 day supply of a controlled substance medication today after consulting the state required EFORCSE. Appropriat e use of medication , risks, side effects, and precaution s reviewed. Follow up with Dr. Baca in 6-8 weeks. [id number] Mehrdad Baca MD [facility] [place] [address] [address] 09/10/2019 14:46:04 09/10/2019 16:13:14 Aftercare 510771112 Z47.1 Patient is recovering well status post [...] needed. Follow-up at 1 year anniversar y. [id number] Daniel Soto PA-C [facility] [place] [address] [address] 04/01/2020 14:06:45 04/01/2020 16:50:51 History of total knee arthroplasty 8126833239 105 Z96.659 Pain in left knee 154597 8762 21899 M25.562 [id number] Mehrdad Baca MD [facility] [place] [address] [address] 06/23/2020 09:16:30 06/23/2020 09:45:00 History of left total knee replacement 7333641628 285983 Z96.652 Patient is now 1 year out from left total knee arthroplas ty and is extraordin arily happy with their progress. Advised to continue with their normal strength and endurance exercises. Patient will return to the office in one year for their annual followup. The patient was reminded to continue with antibiotic prophylaxi s prior to dental work. [id number] Daniel Soto PA-C [facility] [place] [address] [address] 08/04/2020 10:20:28 08/04/2020 11:55:09 Trigger finger of right hand 0432699948 5332895 M65.30 Pain in fi nger of right hand 1064514820 61695 M79.644 Pain in right thumb 1076 380174 639554 M79.644 [id number] Michael Roldan NP [facility] [place] [address] [address] [address] 07/02/2021 09:57:47 07/02/2021 11:46:17 History of left total knee replacement 8924222339 186774 Z96.652 Patient is now 2 years out from left total knee arthroplas ty and is extraordin arily happy with their progress. Advised to continue with their normal strength and endurance exercises. Patient will return to the office as needed for followup. The patient was reminded to continue with antibiotic prophylaxi s prior to dental work. [id number] Daniel Soto PA-C [facility] [address] [facility] [address] [place] [address] 07/09/2021 15:12:12 07/09/2021 15:59:44 Trigger thumb of right hand 1043316936 65602 M65.311 Acquired t participant administrator finger of right middle finger 6039622763 70624 M65.331 [id number] Daniel Soto PA-C [facility] [address] [facility] [address] [place] [address] 07/18/2022 13:03:22 07/18/2022 13:53:59 Trigger finger of right hand 0306027719 4500342 M65.30 Pain in fi nger of right hand 7708367283 32154 M79.644 Pain in right thumb 1076 044136 050635 M79.644 Health Concerns Section Related Observation LastModified by Organization Detai ls LastModified Time None Recorded Concern Status LastModified by Organization Details LastModified Time None Recorded Advance Directives Directive None Recorded Payers Insurance Date Sequence Insurance Name Policy Number Policy Martinez Covered Member ID Martinez Member ID Guarantor Name 05/08/2023 1 [place] Suzy Bell [id number] Suzy Bell 05/08/2023 2 [employer] (MEDICARE SUPPLEMENT) Suzy Bell [id number] Suzy Bell Notes Date Note Type Note [...] outcome of her surgery to this point. Michael Roldan, RAPHAEL [address], [place], [address], [facility] 06/23/2020 20:09:18 08/04/2020 text/html Suzy is an 80-year-old female with right hand complaints. She has had trigger finger in the middle finger has had an injection a year and a half ago while living in [place]. She is having locking in the middle finger and even more so in the thumb of her right hand now. The thumb is very painful. She had no trauma or injury. Daniel Soto PA-C [address], [place], [address], [facility] 08/04/2020 11:51:08 07/02/2021 text/html Very pleasant 81-year-old [...] outcome of her surgery to this point. Michael Roldan NP [address], [place], [address], [facility] 07/05/2021 20:33:18 07/09/2021 text/html Suzy is here today stating the right hand trigger thumb and middle finger trigger finger to is recurring. The thumb is locking and she actually has to manually reduce it. We did an injection for both about a year ago. She is only been having trouble with it last few weeks. She is heading back to [place] in July would like to do the injections before she leaves Daniel Soto PA-C [address], [place], [address], [facility] 07/09/2021 16:40:53 07/18/2022 text/html Suzy 82-year-ol d female that returns today stating she would like to do the Finger injection for the right thumb and middle finger. She is wanting to do surgery but not to the fall. He has had previous injections that he worked for several months [address], [place], [address], [facility] 07/18/2022 14:03:51 OBGyn Episode No OBEpisode recorded.
--- OUTSIDE RECORDS SUMMARY | 2024-10-29 08:33 | XMS_ITS | Clinical Summary ---
Author Organization [facility] Address [address] [place] [address] Phone Care Team Providers Care Buckle Stapler Name Role Phone Edgar Gay MD Primary [...] migh t be different from the original. Beveler - Dr Bishnu Garibay Problem Noted Date Diagnosed Date S/P MVR (mitral valve replacement) Overview (03/03/2010): due to mitral regurgitation 2000 at [facility] in [place], [place], followed by prosthetic mitral valve replacement 08-30-[address] Meño Schulz (24-mm ATS AP valve). Most recent echocardiogram (04-21-08): grossly normal prosthetic mitral valve with 2.9 mmHg mean diastolic gradient, pressure half time 112 milliseconds, valve area 2.0 cm squared, with normal left ventricular function. 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
--- OUTSIDE RECORDS SUMMARY | 2024-10-29 08:33 | XMS_ITS | Patient Health Record ---
Author Organization Dr Willian Palmer PA Address [address] [facility] [address] [place], [place] [id number] Care Team Providers Care Private Advisor Name Role Phone WILLIAN ROMERO Primary Care Provider Willian Romero MD Unavailable Unavailable TESSIE WHITESIDE Unavailable [phone] Allergies Allergen (clinical drug ingredient) Drug/Non Drug Allergy documented on EMR Reaction Allergy Type Onset Date Status morphine Morphine Severity Observation:Mil d , Vomiting , Drug Allergy Active tetracycline Tetracycline Rash , Hives , Severity Observation:Mil d , Drug Allergy Active Reason For Referral No Information Medications Medication SIG (Take, Route, Frequency, Duration) Notes Start Date End Date Status Warfarin Sodium 3 MG Tablet 1 tablet Orally Once a day; Duration: 90 days Active Iron 325 (65 Fe) MG Tablet 1 tablet Orally Once a day Active Tylenol Extra Strength 500 MG Tablet 1 tablet as needed Orally every 6 hrs Active Aspirin 81 81 MG Tablet Delayed Release 1 tablet Orally Once a day Active Valsartan-hydroCHLOROthia zide 320-25 MG Tablet TAKE 1 TABLET BY MOUTH EVERY DAY; Duration: 90 days Active Warfarin Sodium 3 MG Tablet TAKE 1 TABLET BY MOUTH EVERY DAY; Duration: 90 days Active Omeprazole 40 MG Capsule Delayed Release 1 capsule 30 minutes before morning meal Orally Once a day Active Levothyroxine Sodium 112 MCG Tablet 1 tablet Orally Monday-Monday Active Warfarin Sodium 4 MG Tablet 1 tablet Orally ONE DAY A WEEK ON MONDAY Not-Taking Valsartan-hydroCHLOROthia zide 320-25 MG Tablet TAKE 1 TABLET BY MOUTH EVERY DAY; Duration: 90 Active Clopidogrel Bisulfate 75 MG Tablet 1 tablet Orally Once a day; Duration: 90 days 6 MONTH Active Metoprolol Succinate ER 25 MG Tablet Extended Release 24 Hour TAKE 1 TABLET BY MOUTH DAILY Oral; Duration: 90 Days Active Pravastatin Sodium 80 MG Tablet 1 tablet Orally Once a day; Duration: 90 days Active Social History Tobacco Use: Social History Observation Description Date Details (start date - stop date) Never Smoker NA - NA Social History Drugs/Alcohol: Social Info Question Answer Notes Drugs Have you used drugs other than those for medical reasons in the past 12 months? No Caffeine Intake: more than 4 cups per day Hea vy. Tobacco Use: Social Info Question Answer Notes Tobacco Use/Smoking Tobacco use: nonsmoker Additional Details Category Social Info Options Details Drugs/Alcohol: Do you smoke marijuana? De nies Do you drink alcohol? Yes, wine occasionally. Migrated Social History Migrated Social History Smoking Status:Never used tobacco Problems Problem Type SNOMED Code ICD Code Onset Dates Problem Status W/U Status Risk Notes Problem Hypothyroidism (59824537) Other specified hypothyroidism (E03.8) Active confirmed Problem Mixed hyperlipidemia (321553656) Mixed hyperlipidemia (E78.2) Active confirmed Problem Hypertensive heart disease without congestive heart failure (59780811) Hypertensive heart disease without heart failure (I11.9) Active confirmed Problem Mitral valve disorder (84014989) Nonrheumatic mitral (valve) insufficiency (I34.0) Active confirmed Problem Seasonal allergic rhinitis (186719362) Other seasonal allergic rhinitis (J30.2) Active confirmed Problem Gastrointestinal hemorrhage (17996358) Gastrointestinal hemorrhage, unspecified (K92.2) Active confirmed Problem Impaired fasting glucose (614286122) Impaired fasting glucose (R73.01) Active confirmed Problem Long-term current use of anticoagulant (685179275) snf (current) use of anticoagulants (Z79.01) Active confirmed Problem Long-term current use of drug therapy (867242175) Other assisted (current) drug therapy (Z79.899) Active confirmed Problem History of heart valve repair with prosthesis (430626604092946) Presence of prosthetic heart valve (Z95.2) Active confirmed Problem Degenerative disc disease (60388162) DDD (degenerative disc disease), lumbar (M51.36) Active confirmed Problem Transient ischemic attack (095780683) TIA (transient ischemic attack) (G45.9) Active confirmed Problem Atherosclerotic heart disease of [place] coronary artery without angina pectoris (293152886294710) Coronary artery disease involving [place] coronary artery of [place] heart without angina pectoris (I25.10) Active confirmed Problem Hypertensive heart disease without congestive heart failure (55867910) Hypertensive arteriosclerotic cardiovascular disease (I11.9) Active confirmed Problem Peptic ulcer (16899369) Peptic ulcer (K27.9) Active confirmed Problem Non-rheumatic mitral regurgitation (844155959) Nonrheumatic mitral valve regurgitation (I34.0) Active confirmed Problem Gastroesophageal reflux disease (334951590) GERD without esophagitis (K21.9) Active confirmed Problem Anemia due to chronic blood loss (241227780) Blood loss anemia (D50.0) Active confirmed Problem Atherosclerosis of coronary artery without angina pectoris (330326385144639) Atherosclerosis of [place] coronary artery of [place] heart without angina pectoris (I25.10) Active confirmed Problem Cervical radiculopathy (74696446) Cervical radiculopathy (M54.12) Active confirmed Problem History of heart valve recipient (883493826) S/P mitral valve replacement with metallic valve (Z95.4) Active confirmed Problem Thoracic radiculopathy (97230313) Thoracic radiculopathy (M54.14) Active confirmed Problem Mixed hyperlipidemia (922954679) Hyperlipemia, mixed (E78.2) Active confirmed Problem Cervical spondylosis without myelopathy (383578605) Osteoarthritis of spine with radiculopathy, cervical region (M47.22) Active confirmed Problem Derangement of left shoulder joint (disorder) (99544691738731894) Internal derangement of left shoulder (M24.812) Active confirmed Problem Chronic kidney disease stage 3A (disorder) (717863776) Stage 3a chronic kidney disease (CKD) (N18.31) Active confirmed Problem Mechanical heart valve prosthesis (755600692) Mechanical heart valve present (Z95.2) Active confirmed Problem Degeneration of intervertebral disc of lumbar region with discogenic back pain and lower extremity pain (M51.362) Active confirmed Vital Signs Heart Rate 71 /min 04/29/2024 Temperature 97.8 degrees Fahrenheit 04/29/2024 Respiratory Rate 18 /min 04/29/2024 Blood pressure diastolic 68 mm Hg 04/29/2024 Oximetry 96 % 04/29/2024 Weight-kg 77.11 kg 04/29/2024 Height 64 in 04/29/2024 Blood pressure systolic 120 mm Hg 04/29/2024 Weight 170 lbs 04/29/2024 BMI 29.18 kg/m2 04/29/2024 Encounters Encounter Location Date Provider Diagnosis Dr Willian PADILLA [address] [facility] [address] [place] [id number] 02/28/2024 WILLIAN ROMERO Hypertensive heart disease without heart failure I11.9 ; Coronary artery disease involving [place] coronary artery of [place] heart without angina pectoris I25.10 ; Mixed [...] valve replacement with metallic valve Z95.4 ; snf (current) use of anticoagulants Z79.01 ; Mechanical heart valve present Z95.2 and Encounter for immunization Z23 Dr Willian PADILLA [address] [facility] [address] [place] [address] [id number] 04/29/2024 TESSIE WHITESIDE Hypertensive heart disease without heart failure I11.9 ; Coronary artery disease involving [place] coronary artery of [place] heart without angina pectoris I25.10 ; Mixed [...] valve replacement with metallic valve Z95.4 ; 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 Z79.01 ; Mechanical heart valve present Z95.2 ; Encounter for general adult medical examination without abnormal findings Z00.00 ; Encounter for immunization Z23 and Stage 3a chronic kidney disease (CKD) N18.31 Dr Willian Romero MD PA [address] [facility] [address] [place] [address] [id number] 03/01/2024 WILLIAN ROMERO S/P mitral valve replacement with metallic valve Z95.4 and Mechanical heart valve present Z95.2 Dr Willian Romero MD PA [address] [facility] [address] [place] [address] [id number] 03/15/2024 TESSIE Romero MD PA [address] [facility] [address] [place] [address] [id number] 03/18/2024 WILLIAN ROMERO S/P mitral valve replacement with metallic valve Z95.4 Dr Willian Romero MD PA [address] [facility] [address] [place] [address] [id number] 04/04/2024 WILLIAN Romero MD PA [address] [facility] [address] [place] [address] [id number] 04/18/2024 WILLIAN Romero MD PA [address] [facility] [address] [place] [address] [id number] 05/08/2024 WILLIAN Romero MD PA [address] [facility] [address] [place] [address] [id number] 05/22/2024 WILLIAN Romero MD PA [address] [facility] [address] [place] [address] [id number] 06/06/2024 WILLIAN ROMERO S/P mitral valve replacement with metallic valve Z95.4 Dr Willian Romero MD PA [address] [facility] [address] [place] [address] [id number] 06/20/2024 WILLIAN Romero MD PA [address] [facility] [address] [place] [address] [id number] 07/03/2024 WILLIANHALEY ROMERO S/P mitral valve replacement with metallic valve Z95.4 Dr Willian Romero MD PA [address] [facility] [address] [place] [address] [id number] 07/17/2024 WILLIAN PADILLA [address] [facility] [address] [place], [place] [id number] 07/31/2024 WILLIAN PADILLA [address] [facility] [address] [place] [address] [id number] 08/14/2024 WILLIAN ROMERO Assessments Encounter Date Diagnosis [...] - Z95.4) 04/29/2024 Coronary artery disease involving [place] coronary artery of [place] heart without angina pectoris (ICD-10 - I25.10) == CAD status post PTCA: No chest pain or dyspnea Per cardiology in [place] On Plavix, statin, beta-mara. Continue 2D echo [...] chest pain or dyspnea Per cardiology in [place] On Plavix, statin, beta-mara. Continue 2D echo [...] TFT normal 02/28/2024 Coronary artery disease involving [place] coronary artery of [place] heart without angina pectoris (ICD-10 - I25.10) == : CAD status post PTCA: No chest pain or dyspnea Per cardiology in [place] On Plavix, statin, beta-mara. Continue 2D echo [...] chest pain or dyspnea Per cardiology in [place] On Plavix, statin, beta-mara. Continue 2D echo [...] chest pain or dyspnea Per cardiology in [place] On Plavix, statin, beta-mara. Continue 2D echo [...] chest pain or dyspnea Per cardiology in [place] On Plavix, statin, beta-mara. Continue 2D echo [...] chest pain or dyspnea Per cardiology in [place] On Plavix, statin, beta-mara. Continue 2D echo [...] chest pain or dyspnea Per cardiology in [place] On Plavix, statin, beta-mara. Continue 2D echo [...] chest pain or dyspnea Per cardiology in [place] On Plavix, statin, beta-mara. Continue 2D echo [...] chest pain or dyspnea Per cardiology in [place] On Plavix, statin, beta-mara. Continue 2D echo [...] chest pain or dyspnea Per cardiology in [place] On Plavix, statin, beta-mara. Continue 2D echo [...] chest pain or dyspnea Per cardiology in [place] On Plavix, statin, beta-mara. Continue 2D echo [...] chest pain or dyspnea Per cardiology in [place] On Plavix, statin, beta-mara. Continue 2D echo [...] chest pain or dyspnea Per cardiology in [place] On Plavix, statin, beta-mara. Continue 2D echo [...] chest pain or dyspnea Per cardiology in [place] On Plavix, statin, beta-mara. Continue 2D echo [...] chest pain or dyspnea Per cardiology in [place] On Plavix, statin, beta-mara. Continue 2D echo [...] chest pain or dyspnea Per cardiology in [place] On Plavix, statin, beta-mara. Continue 2D echo [...] chest pain or dyspnea Per cardiology in [place] On Plavix, statin, beta-mara. Continue 2D echo [...] chest pain or dyspnea Per cardiology in [place] On Plavix, statin, beta-mara. Continue 2D echo [...] chest pain or dyspnea Per cardiology in [place] On Plavix, statin, beta-mara. Continue 2D echo [...] chest pain or dyspnea Per cardiology in [place] On Plavix, statin, beta-mara. Continue 2D echo [...] chest pain or dyspnea Per cardiology in [place] On Plavix, statin, beta-mara. Continue 2D echo [...] chest pain or dyspnea Per cardiology in [place] On Plavix, statin, beta-mara. Continue 2D echo [...] chest pain or dyspnea Per cardiology in [place] On Plavix, statin, beta-mara. Continue 2D echo [...] On levothyroxine . Continue TFT normal 04/29/2024 snf (current) use of anticoagulants (ICD-10 - Z79.) == CAD status post PTCA: No chest pain or dyspnea Per cardiology in [place] On Plavix, statin, beta-mara. Continue 2D echo [...] chest pain or dyspnea Per cardiology in [place] On Plavix, statin, beta-mara. Continue 2D echo [...] Hypothyroidis m: On levothyroxine . 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 Continue 2D echo [...] chest pain or dyspnea Per cardiology in [place] On Plavix, statin, beta-mara. Continue 2D echo [...] chest pain or dyspnea Per cardiology in [place] On Plavix, statin, beta-mara. Continue 2D echo [...] chest pain or dyspnea Per cardiology in [place] On Plavix, statin, beta-mara. Continue 2D echo [...] chest pain or dyspnea Per cardiology in [place] On Plavix, statin, beta-mara. Continue 2D echo [...] chest pain or dyspnea Per cardiology in [place] On Plavix, statin, beta-mara. Continue 2D echo [...] chest pain or dyspnea Per cardiology in [place] On Plavix, statin, beta-mara. Continue 2D echo [...] chest pain or dyspnea Per cardiology in [place] On Plavix, statin, beta-mara. Continue 2D echo [...] (PT/INR) 03/29 Prothrombin Time with INR (PT/INR) 03/18 Prothrombin Time with INR (PT/INR) 03/30 Prothrombin Time with INR (PT/INR) 08/03 Prothrombin Time with INR (PT/INR) 06/06 Prothrombin Time with INR (PT/INR) 07/03 Ultrasound : Thyroid Sonography B-Scan 1 05/29/2022 Echocardiogram, doppler exam 04/14/2023 LIPID PANEL, STANDARD (7600) 04/29/2024 TSH+FREE T4 (42615) 04/29/2024 COMPREHENSIVE METABOLIC PANEL (67797) CBC (H/H, RBC, INDICES, WBC, PLT) (1759) 04/29/2024 HEMOGLOBIN A1c (496) 04/29/2024 Next Appt Details Provider Name:TESSIETHELMA REYEZSerena YA, 03/31/2025 01:00:00 PM, [address] [facility], [address], [place], [place], [phone], Insurance Providers Payer Name Payer Address Payer Phone Subscriber Number Group Number Insured Name Patient Relationship to Insured Coverage Start Date Coverage End Date MEDICARE [address] [address] [place] [phone] [id number] SUZY BELL Self - patient is the insured [email or web address] [address] [address] [place] [address] [id number] SUZY BELL Self - patient is the insured Medical (General) History Medical History History ICD Code Hypertensive heart disease without heart failure I11.9 Atherosclerosis of [place] co ronary artery of [place] heart without angina pectoris I25.10 Other 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
[2024-10-29 09:23] LABS: INR 2.8; Prothrombin Time 28.9 Seconds (11.1-14.7)
== END 2024-10-29 08:28 | disposition home or self-care (01) ==
PROVIDERS: PCP Nurse Practitioner; Visit Provider Nurse Practitioner
DX: Z79.01 Long term (current) use of anticoagulants (principal); Z95.2 Presence of prosthetic heart valve
CPT/HCPCS: 36415; 85610

== ENCOUNTER 2024-12-02 09:24 | Outpatient (CLI) | payer MEDICARE, SELFPAY ==
--- OUTSIDE RECORDS SUMMARY | 2024-12-02 09:39 | XMS_ITS | Clinical Summary ---
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
--- OUTSIDE RECORDS SUMMARY | 2024-12-02 09:39 | XMS_ITS | Patient Health Record ---
Author Organization Dr Willian Palmer PA Address [address] [facility] [address] [place], [place] [id number] Care Team Providers Care Billboard Mechanic Name Role Phone WILLIAN ROMERO Primary Care Provider [phone] Willian Romero MD Unavailable Unavailable TESSIE WHITESIDE Unavailable [phone] Allergies Allergen (clinical drug ingredient) Drug/Non Drug [...] ONE DAY A WEEK ON MONDAY Not-Taking Pravastatin Sodium 80 MG Tablet 1 tablet [...] MOUTH DAILY Oral; Duration: 90 Days Active Social History Tobacco Use: Social History [...] Status W/U Status Risk Notes Problem Hypothyroidism (68430112) Other specified hypothyroidism (E03.8) Active confirmed Problem Mixed hyperlipidemia (532895396) Mixed hyperlipidemia (E78.2) Active confirmed Problem Hypertensive heart disease without congestive heart failure (38837101) Hypertensive heart disease without heart failure (I11.9) Active confirmed Problem Mitral valve disorder (94980322) Nonrheumatic mitral (valve) insufficiency (I34.0) Active confirmed Problem Seasonal allergic rhinitis (286384230) Other seasonal allergic rhinitis (J30.2) Active confirmed Problem Gastrointestinal hemorrhage (46202220) Gastrointestinal hemorrhage, unspecified (K92.2) Active confirmed Problem Impaired fasting glucose (809045167) Impaired fasting glucose (R73.01) Active confirmed Problem Long-term current use of anticoagulant (080471091) longterm (current) use of anticoagulants (Z79.01) Active confirmed Problem Long-term current use of drug therapy (674090788) Other buttermaker (current) drug therapy (Z79.899) Active confirmed Problem History of heart valve repair with prosthesis (485624983872680) Presence of prosthetic heart valve (Z95.2) Active confirmed Problem Degenerative disc disease (71936701) DDD (degenerative disc disease), lumbar (M51.36) Active confirmed Problem Transient ischemic attack (771816273) TIA (transient ischemic attack) (G45.9) Active confirmed Problem Atherosclerotic heart disease of [place] coronary artery without angina pectoris (361788964955575) Coronary artery disease involving [place] coronary artery of [place] heart without angina pectoris (I25.10) Active confirmed Problem Hypertensive heart disease without congestive heart failure (06623900) Hypertensive arteriosclerotic cardiovascular disease (I11.9) Active confirmed Problem Peptic ulcer (41086938) Peptic ulcer (K27.9) Active confirmed Problem Non-rheumatic mitral regurgitation (156245701) Nonrheumatic mitral valve regurgitation (I34.0) Active confirmed Problem Gastroesophageal reflux disease (707526040) GERD without esophagitis (K21.9) Active confirmed Problem Anemia due to chronic blood loss (434344594) Blood loss anemia (D50.0) Active confirmed Problem Atherosclerosis of coronary artery without angina pectoris (752100955412752) Atherosclerosis of [place] coronary artery of [place] heart without angina pectoris (I25.10) Active confirmed Problem Cervical radiculopathy (83518109) Cervical radiculopathy (M54.12) Active confirmed Problem History of heart valve recipient (625328326) S/P mitral valve replacement with metallic valve (Z95.4) Active confirmed Problem Thoracic radiculopathy (33666364) Thoracic radiculopathy (M54.14) Active confirmed Problem Mixed hyperlipidemia (243132580) Hyperlipemia, mixed (E78.2) Active confirmed Problem Cervical spondylosis without myelopathy (513390383) Osteoarthritis of spine with radiculopathy, cervical region (M47.22) Active confirmed Problem Derangement of left shoulder joint (disorder) (43590610732538248) Internal derangement of left shoulder (M24.812) Active confirmed Problem Chronic kidney disease stage 3A (disorder) (678710119) Stage 3a chronic kidney disease (CKD) (N18.31) Active confirmed Problem Mechanical heart valve prosthesis (073032341) Mechanical heart valve present (Z95.2) Active confirmed [...] Date Provider Diagnosis Dr Willian PADILLA [address] [facility] [address] [place] [address] [id number] 02/28/2024 WILLIAN ROMERO Hypertensive heart disease without heart failure I11.9 ; Coronary artery disease involving [place] coronary artery of [place] heart without angina pectoris I25.10 ; Mixed [...] valve replacement with metallic valve Z95.4 ; oil heaterman (current) use of anticoagulants Z79.01 ; Mechanical heart valve present Z95.2 and Encounter for immunization Z23 Dr Willian PADILLA [address] [facility] [address] [place] [address] [id number] 04/29/2024 TESSIE WHITESIDE Hypertensive heart disease without heart failure I11.9 ; Coronary artery disease involving [place] coronary artery of [place] heart without angina pectoris I25.10 ; Mixed [...] valve replacement with metallic valve Z95.4 ; longterm (current) use of anticoagulants Z79.01 ; Mechanical heart valve present Z95.2 ; Encounter for general adult medical examination without abnormal findings Z00.00 ; Encounter for immunization Z23 and Stage 3a chronic kidney disease (CKD) N18.31 Dr Willian Romero MD PA [address] [facility] [address] [place] [address] [id number] 03/01/2024 WILLIAN ROMERO S/P mitral valve replacement with metallic valve Z95.4 and Mechanical heart valve present Z95.2 Dr Willian Romero MD PA [address] [facility] [address] [place] [address] [id number] 03/15/2024 TESSIE Romero MD PA [address] [facility] [address] [place] [address] [id number] 03/18/2024 WILLIAN ROMERO S/P mitral valve replacement with metallic valve Z95.4 Dr Willian Romero MD PA [address] [facility] [address] [place] [address] [id number] 04/04/2024 WILLIAN Romero MD PA [address] [facility] [address] [place] [address] [id number] 04/18/2024 WILLIAN Romero MD PA [address] [facility] [address] [place] [address] [id number] 05/08/2024 WILLIAN Romero MD PA [address] [facility] [address] [place] [address] [id number] 05/22/2024 WILLIAN Romero MD PA [address] [facility] [address] [place] [address] [id number] 06/06/2024 WILLIAN ROMERO S/P mitral valve replacement with metallic valve Z95.4 Dr Willian Romero MD PA [address] [facility] [address] [place] [address] [id number] 06/20/2024 WILLIAN Romero MD PA [address] [facility] [address] [place] [address] [id number] 07/03/2024 WILLIANHALEY ROMERO S/P mitral valve replacement with metallic valve Z95.4 Dr Willian Romero MD PA [address] [facility] [address] [place] [address] [id number] 07/17/2024 WILLIAN PADILLA [address] [facility] [address] [place] [address] [id number] 07/31/2024 WILLIAN PADILLA [address] [facility] [address] [place] [address] [id number] 08/14/2024 WILLIAN PADILLA [address] [facility] [address] [place] [address] [id number] 11/14/2024 WILLIAN ROMERO Assessments Encounter Date Diagnosis (ICD [...] - Z95.4) 04/29/2024 Coronary artery disease involving [place] coronary artery of [place] heart without angina pectoris (ICD-10 - I25.10) == CAD status post PTCA: No chest pain or dyspnea Per cardiology in [place] On Plavix, statin, beta-mara. Continue 2D echo [...] chest pain or dyspnea Per cardiology in [place] On Plavix, statin, beta-mara. Continue 2D echo [...] TFT normal 02/28/2024 Coronary artery disease involving [place] coronary artery of [place] heart without angina pectoris (ICD-10 - I25.10) == : CAD status post PTCA: No chest pain or dyspnea Per cardiology in [place] On Plavix, statin, beta-mara. Continue 2D echo [...] chest pain or dyspnea Per cardiology in [place] On Plavix, statin, beta-mara. Continue 2D echo [...] chest pain or dyspnea Per cardiology in [place] On Plavix, statin, beta-mara. Continue 2D echo [...] chest pain or dyspnea Per cardiology in [place] On Plavix, statin, beta-mara. Continue 2D echo [...] chest pain or dyspnea Per cardiology in [place] On Plavix, statin, beta-mara. Continue 2D echo [...] chest pain or dyspnea Per cardiology in [place] On Plavix, statin, beta-mara. Continue 2D echo [...] chest pain or dyspnea Per cardiology in [place] On Plavix, statin, beta-mara. Continue 2D echo [...] chest pain or dyspnea Per cardiology in [place] On Plavix, statin, beta-mara. Continue 2D echo [...] chest pain or dyspnea Per cardiology in [place] On Plavix, statin, beta-mara. Continue 2D echo [...] chest pain or dyspnea Per cardiology in [place] On Plavix, statin, beta-mara. Continue 2D echo [...] chest pain or dyspnea Per cardiology in [place] On Plavix, statin, beta-mara. Continue 2D echo [...] chest pain or dyspnea Per cardiology in [place] On Plavix, statin, beta-mara. Continue 2D echo [...] chest pain or dyspnea Per cardiology in [place] On Plavix, statin, beta-mara. Continue 2D echo [...] chest pain or dyspnea Per cardiology in [place] On Plavix, statin, beta-mara. Continue 2D echo [...] chest pain or dyspnea Per cardiology in [place] On Plavix, statin, beta-mara. Continue 2D echo [...] chest pain or dyspnea Per cardiology in [place] On Plavix, statin, beta-mara. Continue 2D echo [...] chest pain or dyspnea Per cardiology in [place] On Plavix, statin, beta-mara. Continue 2D echo [...] chest pain or dyspnea Per cardiology in [place] On Plavix, statin, beta-mara. Continue 2D echo [...] chest pain or dyspnea Per cardiology in [place] On Plavix, statin, beta-mara. Continue 2D echo [...] chest pain or dyspnea Per cardiology in [place] On Plavix, statin, beta-mara. Continue 2D echo [...] chest pain or dyspnea Per cardiology in [place] On Plavix, statin, beta-mara. Continue 2D echo [...] chest pain or dyspnea Per cardiology in [place] On Plavix, statin, beta-mara. Continue 2D echo [...] On levothyroxine . Continue TFT normal 04/29/2024 oil heaterman (current) use of anticoagulants (ICD-10 - Z79.01) == CAD status post PTCA: No chest pain or dyspnea Per cardiology in [place] On Plavix, statin, beta-mara. Continue 2D echo [...] chest pain or dyspnea Per cardiology in [place] On Plavix, statin, beta-mara. Continue 2D echo [...] Hypothyroidis m: On levothyroxine . Continue 02/28/2024 oil heaterman (current) use of anticoagulants (ICD-10 - Z79.01) == : CAD status post PTCA: No chest pain or dyspnea Per cardiology in [place] On Plavix, statin, beta-mara. Continue 2D echo [...] chest pain or dyspnea Per cardiology in [place] On Plavix, statin, beta-mara. Continue 2D echo [...] chest pain or dyspnea Per cardiology in [place] On Plavix, statin, beta-mara. Continue 2D echo [...] chest pain or dyspnea Per cardiology in [place] On Plavix, statin, beta-mara. Continue 2D echo [...] chest pain or dyspnea Per cardiology in [place] On Plavix, statin, beta-mara. Continue 2D echo [...] chest pain or dyspnea Per cardiology in [place] On Plavix, statin, beta-mara. Continue 2D echo [...] chest pain or dyspnea Per cardiology in [place] On Plavix, statin, beta-mara. Continue 2D echo [...] chest pain or dyspnea Per cardiology in [place] On Plavix, statin, beta-mara. Continue 2D echo [...] LIPID PANEL, STANDARD (7600) 04/29/2024 TSH+FREE T4 (31189) 04/29/2024 COMPREHENSIVE METABOLIC PANEL (20821) CBC (H/H, RBC, INDICES, WBC, PLT) (1759) 04/29/2024 HEMOGLOBIN A1c (496) 04/29/2024 Next Appt Details Provider Name:TESSIE YA, 03/31/2025 01:00:00 PM, [address] [facility], [address], [place], [place], [phone], Insurance Providers Payer Name Payer Address Payer Phone Subscriber Number Group Number Insured Name Patient Relationship to Insured Coverage Start Date Coverage End Date MEDICARE [address] [address] [place] [address] [id number] SUZY BELL Self - patient is the insured [employer] [address] [address] [place] [address] [phone] [id number] SUZY BELL Self - patient is the insured Medical (General) History Medical History History ICD Code Hypertensive heart disease without heart failure I11.9 Atherosclerosis of [place] co ronary artery of [place] heart without angina pectoris I25.10 Other buttermaker (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
--- OUTSIDE RECORDS SUMMARY | 2024-12-02 09:39 | XMS_ITS | Clinical Summary ---
Author Organization [facility] Address [address] [place] [address] Care Team Providers Care Principal Quality Engineer Name Role Phone Kenneth Chun Primary Care Provider [phone] Source Comments [facility],non-owned Affiliates and Associated Physician Practices is amultiple site organization consisting of ambulatory clinics and hospital sitesin [place], [place], [place] and [place]. This disclosure is being madepursuant to the Care Everywhere program and may not contain all information available regarding this patient. Last updated 18.[facility] [employer] Allergies Active Allergy Reactions Criticality Noted Date [...] migh t be different from the original. Parts Department Manager- Dr. Bishnu Garibay Problem Noted Date Diagnosed Date Atherosclerosis of [place] co ronary artery of [place] heart without angina pectoris 08/19/2016 Non-rheumatic tricuspid [...] season) 2023 DEPRESSION SCREENING 05/01/2024 INFLUENZA VACCINE (#1) 2024 HEPATITIS B VACCINE Aged Out No [...] topic Insurance MEDICARE COMMERCIAL GENERIC Care Teams Principal Quality Engineer Relationship Specialty Start Date End Date Kenneth Chun DO [address] [place], [place] [phone] PCP - General Internal Medicine 02/06/19
--- OUTSIDE RECORDS SUMMARY | 2024-12-02 09:39 | XMS_ITS | Clinical Summary ---
Author Organization [facility] Address [address] [place] [address] Phone Care Team Providers Care Product Development Ecologist Name Role Phone Edgar Gay MD Primary [...] migh t be different from the original. Waredresser - Dr Bishnu Garibay Problem Noted Date Diagnosed Date S/P MVR (mitral valve replacement) Overview (03/03/2010): due to mitral regurgitation 2000 at [facility] in [place], [place], followed by prosthetic mitral valve replacement 08-30-[address] Meño Schulz (24-mm ATS AP valve). Most recent echocardiogram (04-21-08): grossly normal prosthetic mitral valve with 2.9 mmHg mean diastolic gradient, pressure half time 112 milliseconds, valve area 2.0 cm squared, with normal left ventricular function. Coronary atherosclerosis of [place] coronary geena ry Overview (02/26/2014): Status post [...] on file Legal Sex Female 5:57 AM STAFF WRITER Gender Identity Not on file Sexual Orientation [...] 1-dose 75+ series) 2015 INFLUENZA VACCINE (#1) 2024 COLORECTAL SCREENING Discontinued 11/14/2017, 11/15/19 18 Colorectal Cancer Screening Discontinued FIT-DNA Q 3 years Discontinued FIT/FOBT Q 1 year Discontinued Flex Sig/CT Colonography Q 5 years Discontinued Insurance MEDICARE PART A AND B [employer] Advance Directives For more information, please contact: [phone] Documents on File Type Date Recorded Patient Decontaminator Expl anation Advance Directive POA 02/11/2013 9:24 AM Advance Directive POA Care Teams Product Development Ecologist Relationship Specialty Start Date End Date Edgar Gay MD PCP - General Internal Medicine 09/24/10
[2024-12-02 10:22] LABS: INR 3.2; Prothrombin Time 31.0 Seconds (11.1-14.7)
== END 2024-12-02 09:25 | disposition home or self-care (01) ==
LOC: ANHLAB 09:24
PROVIDERS: PCP Nurse Practitioner; Visit Provider Nurse Practitioner
DX: Z95.2 Presence of prosthetic heart valve (principal); Z79.01 Long term (current) use of anticoagulants
CPT/HCPCS: 36415; 85610

== ENCOUNTER 2025-01-02 10:27 | Outpatient (CLI) | payer MEDICARE, SELFPAY ==
--- OUTSIDE RECORDS SUMMARY | 2007-01-22 05:16 | XMS_ITS | Continuity of Care Document ---
Author Organization [facility] Address [address] [place] [address] [place] [address] Phone Care Team Providers Care Supervisor Hardboard Name Role Phone Ted Bradshaw MD Unavailable Unavailable Procedures Procedure Date Office/outpatient Visit, [facility] Advance Directives Directive Yes / No Effective Date File Name No Information Encounters Encounter Description Practice Location Reason(s) For Visit Diagnoses Date Provider Providers Copied on Encounter Office/outpat ient Visit, [facility], [address], [place], [place], [id number], [place] tel:[phone] [facility] No Information 4-[address] Augustine Jean. [address] [facility] [place], [address], [place]. tel:[phone] Family History Family Member Type Diagnosis Age At Onset No Information Payers Payer name Insurance type Covered constitution party ID Authoriza tion(s) Medicare [facility] [id number] Social History Type Description Quantity Date Captured [...]
--- OUTSIDE RECORDS SUMMARY | 2024-04-01 05:00 | XMS_ITS ---
Author Organization Dr Willian Palmer PA Address [address] [facility] [address] [place] [phone] Care Team Providers Care Sash Finisher Name Role Phone WILLIAN ROMERO Primary Care Provider Willian Romero MD Unavailable Unavailable TESSIE WHITESIDE Unavailable [phone] REASON FOR VISIT AWV Medications Medication SIG [...] MD PA [address] [facility] [address] [place], [place] [phone] 04/01/2024 TESSIE WHITESIDE Plan Of Treatment Next Appt Details Provider Name:TESSIE YA, 03/31/2025 01:00:00 PM, [address] [facility], [address], [place], [place], [phone], Progress Notes * RAFA BELLOB:1940 ([age] yo F)Acc No.[id number]:04/01/2024 Progress Note Patient: SUZY HAMMONDS Provider: Peter Madrigal, Santos :1940 A ge:83 Y S ex:Female Date:04/01/2024 Address:[address] [place], [place] [phone] Pcp:WILLIAN ROMERO Subjective: * Chief Complaints: * [...] Electronic signature of ALEXANDREA BEAN CCA on 01/02/2025 at 11:58 AM EDT Sign off status: Pending * Provider: Peter Madrigal -C Date: 1 06/02/2023 Generated for Rosalie vang/Donovan/Armando on: 0 01/02/2025 11:58 AM EDT
--- OUTSIDE RECORDS SUMMARY | 2025-01-02 10:58 | XMS_ITS | Patient Health Record ---
Author Organization Dr Willian Palmer PA Address [address] [facility] [address] [place], [place] [id number] Care Team Providers Care Jewelry Casting Model Maker Apprentice Name Role Phone WILLIAN ROMERO Primary Care Provider Willian Romero MD Unavailable Unavailable TESSIE [place] Unavailable [phone] Allergies Allergen (clinical drug ingredient) Drug/Non Drug [...] Status W/U Status Risk Notes Problem Hypothyroidism (64944281) Other specified hypothyroidism (E03.8) Active confirmed Problem Mixed hyperlipidemia (657249042) Mixed hyperlipidemia (E78.2) Active confirmed Problem Hypertensive heart disease without congestive heart failure (27632679) Hypertensive heart disease without heart failure (I11.9) Active confirmed Problem Mitral valve disorder (18198451) Nonrheumatic mitral (valve) insufficiency (I34.0) Active confirmed Problem Seasonal allergic rhinitis (268105054) Other seasonal allergic rhinitis (J30.2) Active confirmed Problem Gastrointestinal hemorrhage (42708221) Gastrointestinal hemorrhage, unspecified (K92.2) Active confirmed Problem Impaired fasting glucose (883814049) Impaired fasting glucose (R73.01) Active confirmed Problem Long-term current use of anticoagulant (310696529) vermin exterminator (current) use of anticoagulants (Z79.01) Active confirmed Problem Long-term current use of drug therapy (338200813) Other custodial (current) drug therapy (Z79.899) Active confirmed Problem History of heart valve repair with prosthesis (149392527223067) Presence of prosthetic heart valve (Z95.2) Active confirmed Problem Degenerative disc disease (41766766) DDD (degenerative disc disease), lumbar (M51.36) Active confirmed Problem Transient ischemic attack (258390203) TIA (transient ischemic attack) (G45.9) Active confirmed Problem Atherosclerotic heart disease of [place] coronary artery without angina pectoris (943861045237522) Coronary artery disease involving [place] coronary artery of [place] heart without angina pectoris (I25.10) Active confirmed Problem Hypertensive heart disease without congestive heart failure (90573143) Hypertensive arteriosclerotic cardiovascular disease (I11.9) Active confirmed Problem Peptic ulcer (02721831) Peptic ulcer (K27.9) Active confirmed Problem Non-rheumatic mitral regurgitation (314846965) Nonrheumatic mitral valve regurgitation (I34.0) Active confirmed Problem Gastroesophageal reflux disease (479840273) GERD without esophagitis (K21.9) Active confirmed Problem Anemia due to chronic blood loss (809512056) Blood loss anemia (D50.0) Active confirmed Problem Atherosclerosis of coronary artery without angina pectoris (204741533868048) Atherosclerosis of [place] coronary artery of [place] heart without angina pectoris (I25.10) Active confirmed Problem Cervical radiculopathy (06233920) Cervical radiculopathy (M54.12) Active confirmed Problem History of heart valve recipient (279818772) S/P mitral valve replacement with metallic valve (Z95.4) Active confirmed Problem Thoracic radiculopathy (98732251) Thoracic radiculopathy (M54.14) Active confirmed Problem Mixed hyperlipidemia (790028227) Hyperlipemia, mixed (E78.2) Active confirmed Problem Cervical spondylosis without myelopathy (076629849) Osteoarthritis of spine with radiculopathy, cervical region (M47.22) Active confirmed Problem Derangement of left shoulder joint (disorder) (65841920472037670) Internal derangement of left shoulder (M24.812) Active confirmed Problem Chronic kidney disease stage 3A (disorder) (550026821) Stage 3a chronic kidney disease (CKD) (N18.31) Active confirmed Problem Mechanical heart valve prosthesis (466105572) Mechanical heart valve present (Z95.2) Active confirmed [...] Date Provider Diagnosis Dr Willian PADILLA [address] [facility] [address] [place] [address] [id number] 02/28/2024 WILLIAN ROMERO Hypertensive heart disease without heart failure I11.9 ; Coronary artery disease involving [place] coronary artery of [place] heart without angina pectoris I25.10 ; Mixed [...] for immunization Z23 Dr Willian PADILLA [address] [facility] [address] [place] [address] [id number] 04/29/2024 TESSIE [place]ESIDE Hypertensive heart disease without heart failure I11.9 ; Coronary artery disease involving [place] coronary artery of [place] heart without angina pectoris I25.10 ; Mixed [...] valve replacement with metallic valve Z95.4 ; vermin exterminator (current) use of anticoagulants Z79.01 ; Mechanical heart valve present Z95.2 ; Encounter for general adult medical examination without abnormal findings Z00.00 ; Encounter for immunization Z23 and Stage 3a chronic kidney disease (CKD) N18.31 Dr Willian Romero MD PA [address] [facility] [address] [place] [address] [id number] 03/01/2024 WILLIAN ROMERO S/P mitral valve replacement with metallic valve Z95.4 and Mechanical heart valve present Z95.2 Dr Willian Romero MD PA [address] [facility] [address] [place] [address] [id number] 03/15/2024 TESSIE Romero MD PA [address] [facility] [address] [place] [address] [id number] 03/18/2024 WILLIAN ROMERO S/P mitral valve replacement with metallic valve Z95.4 Dr Willian Romero MD PA [address] [facility] [address] [place] [address] [id number] 04/04/2024 WILLIAN Romero MD PA [address] [facility] [address] [place] [address] [id number] 04/18/2024 WILLIAN Romero MD PA [address] [facility] [address] [place] [address] [id number] 05/08/2024 WILLIAN Romero MD PA [address] [facility] [address] [place] [address] [id number] 05/22/2024 WILLIAN Romero MD PA [address] [facility] [address] [place] [address] [id number] 06/06/2024 WILLIAN ROMERO S/P mitral valve replacement with metallic valve Z95.4 Dr Willian Romero MD PA [address] [facility] [address] [place] [address] [id number] 06/20/2024 WILLIAN Romero MD PA [address] [facility] [address] [place] [address] [id number] 07/03/2024 WILLIANHALEY ROMERO S/P mitral valve replacement with metallic valve Z95.4 Dr Willian Romero MD PA [address] [facility] [address] [place] [address] [id number] 07/17/2024 WILLIAN PADILLA [address] [facility] [address] [place] [address] [id number] 07/31/2024 WILLIAN PADILLA [address] [facility] [address] [place] [address] [id number] 08/14/2024 WILLIAN PADILLA [address] [facility] [address] [place] [address] [id number] 11/14/2024 WILLIAN ROMERO Assessments Encounter Date Diagnosis [...] - Z95.4) 04/29/2024 Coronary artery disease involving [place] coronary artery of [place] heart without angina pectoris (ICD-10 - I25.10) [...] TFT normal 02/28/2024 Coronary artery disease involving [place] coronary artery of [place] heart without angina pectoris (ICD-10 - I25.10) [...] On levothyroxine . Continue TFT normal 04/29/2024 vermin exterminator (current) use of anticoagulants (ICD-10 - Z79.01) [...] Hypothyroidis m: On levothyroxine . Continue 02/28/2024 group home (current) use of anticoagulants [...] LIPID PANEL, STANDARD (7600) 04/29/2024 TSH+FREE T4 (91895) 04/29/2024 COMPREHENSIVE METABOLIC PANEL (15429) CBC (H/H, RBC, INDICES, WBC, PLT) (1759) 04/29/2024 HEMOGLOBIN A1c (496) 04/29/2024 Next Appt Details Provider Name:TESSIE YA, 03/31/2025 01:00:00 PM, [address] [facility], [address], [place], [place], [phone], Insurance Providers Payer Name Payer Address Payer Phone Subscriber Number Group Number Insured Name Patient Relationship to Insured Coverage Start Date Coverage End Date MEDICARE [address] [place] [phone] [id number] SUZY BELL Self - patient is the insured [employer] [address] [address] [place] [address] [id number] SUZY BELL Self - patient is the insured Medical (General) History Medical History History ICD Code Hypertensive heart disease without heart failure I11.9 Atherosclerosis of [place] co ronary artery of [place] heart without angina pectoris I25.10 Other manager intermediate (current) drug therapy Z 79.899 Myiasis 134.0 TIA (transient ischemic attack) G45.9 Presence of prosthetic heart valve Z95.2 Other seasonal allergic rhinitis J30.2 Peptic ulcer K27.9 Surgical History Surgery Date(Month/Year) Procedure on heart - MECHANICAL VALVE - MITRAL 08/30/2005 2 HEART STENTS PLACED 2012 Insertion of stent into vein 05-01-2007 Back surgery 05-01-1991 Breast surgery procedure 05-01-1988 Hysterectomy 05-01-1970 2 HEART STENTS PLACED 12/12/2022 Hospitalization History Reason Date(Month/Year) BLACK TARRY STOOLS 08/24/2021
--- OUTSIDE RECORDS SUMMARY | 2025-01-02 10:58 | XMS_ITS | Clinical Summary ---
Author Organization [facility] Address [address] [place] [address] Care Team Providers Care Psychology Department Chair Name Role Phone Kenneth Chun Primary Care Provider [phone] Source Comments [facility],non-owned Affiliates and Associated Physician Practices is amultiple site organization consisting of ambulatory clinics and hospital sitesin [place], [place], [place] and [place]. This disclosure is being madepursuant to the Care Everywhere program and may not contain all information available regarding this patient. Last updated 18.[facility] [employer] Allergies Active Allergy Reactions Criticality Noted Date [...] migh t be different from the original. Cloth Hand- Dr. Bishnu Garibay Problem Noted Date Diagnosed Date Atherosclerosis of [place] co ronary artery of [place] heart without angina pectoris 08/19/2016 Non-rheumatic tricuspid [...] yrs (1 - 1-dose 75+ series) 2015 DEPRESSION SCREENING 05/01/2024 COVID-19 VACCINE (1 - 2023-2 5 season) 2024 INFLUENZA VACCINE (#1) 2024 HEPATITIS B VACCINE [...] topic Insurance MEDICARE COMMERCIAL GENERIC Care Teams Psychology Department Chair Relationship Specialty Start Date End Date Kenneth Chun DO [address] [place], [place] [phone] PCP - General Internal Medicine 02/06/19
--- OUTSIDE RECORDS SUMMARY | 2025-01-02 10:58 | XMS_ITS | Clinical Summary ---
Author Organization [facility] Address [address] [place] [address] Phone Care Team Providers Care Pharmacy Scheduler Name Role Phone Edgar Gay MD Primary [...] migh t be different from the original. English Composition Teacher - Dr Bishnu Garibay Problem Noted Date Diagnosed Date S/P MVR (mitral valve replacement) Overview (03/03/2010): due to mitral regurgitation 2000 at [facility] in [place], [place], followed by prosthetic mitral valve replacement 08-30-[address] Meño Schulz (24-mm ATS AP valve). Most recent echocardiogram (04-21-08): grossly normal prosthetic mitral valve with 2.9 mmHg mean diastolic gradient, pressure half time 112 milliseconds, valve area 2.0 cm squared, with normal left ventricular function. 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
[2025-01-02 11:52] LABS: INR 3.1; Prothrombin Time 30.4 Seconds (11.1-14.7)
== END 2025-01-02 10:28 | disposition home or self-care (01) ==
PROVIDERS: PCP Nurse Practitioner; Visit Provider Nurse Practitioner
DX: Z95.2 Presence of prosthetic heart valve (principal); Z79.01 Long term (current) use of anticoagulants
CPT/HCPCS: 36415; 85610

== ENCOUNTER 2025-01-30 11:33 | Outpatient (CLI) | payer MEDICARE, SELFPAY ==
--- OUTSIDE RECORDS SUMMARY | 2007-01-22 05:16 | XMS_ITS | Continuity of Care Document ---
Author Organization [facility] Address [address] [place] [address] [place] [address] Phone Care Team Providers Care Excellence Coach Name Role Phone Ted Bradshaw MD Unavailable Unavailable Procedures Procedure Date Office/outpatient Visit, [facility] Advance Directives Directive Yes / No Effective Date File Name No Information Encounters Encounter Description Practice Location Reason(s) For Visit Diagnoses Date Provider Providers Copied on Encounter Office/outpat ient Visit, [facility], [address], [place], [place], [id number], [place] tel:[phone] [facility] No Information 4-[address] Jean. [address] [facility] [place] [address], [place]. tel:[phone] Family History Family Member Type Diagnosis Age At Onset No Information Payers Payer name Insurance type Covered libertarian ID Authoriza tion(s) Medicare [facility] [id number] Social History Type Description Quantity Date Captured Comments Sex Female Smoking Status No Information Chief Complaint And Reason For Visit No Information Reason For Referral Reason For Referral No Information History Of Present Illness Encounter Date Complaint History Of Prese nt Illness No Information Functional Status Date Functional Assessmen t No Information Instructions Date Instruction Additional Infor mation No Information Assessments Type Assessment Date No Information Patient Care Teams Name Effective Dates (start - stop) Status Members No Information
--- OUTSIDE RECORDS SUMMARY | 2024-04-01 05:00 | XMS_ITS ---
Author Organization Dr Willian Palmer [facility] Address [address] [facility] [address] [facility] [address] [place] [id number] Care Team Providers Care Trade Recruiter Name Role Phone WILLIAN ROMERO Primary Care Provider [phone] Willian Romero MD Unavailable Unavailable TESSIE WHITESIDE Unavailable [phone] REASON FOR VISIT AWV Medications Medication SIG (Take, Route, Frequency, Duration) Notes Start Date End Date Status Pravastatin Sodium 80 MG Tablet 1 tablet Orally Once a day; Duration: 90 days Active Valsartan-hydroCHLOROthia zide 320-25 MG Tablet TAKE 1 TABLET BY MOUTH EVERY DAY; Duration: 90 Active Clopidogrel Bisulfate 75 MG Tablet 1 tablet Orally Once a day; Duration: 90 days 6 MONTH Active Tylenol Extra Strength 500 MG Tablet 1 tablet as needed Orally every 6 hrs Active Warfarin Sodium 3 MG Tablet 1 tablet Orally Once a day; Duration: 90 days Active Warfarin Sodium 4 MG Tablet 1 tablet Orally ONE DAY A WEEK ON MONDAY Not-Taking Iron 325 (65 Fe) MG Tablet 1 tablet Orally Once a day Active Omeprazole 40 MG Capsule Delayed Release 1 capsule 30 minutes before morning meal Orally Once a day Active Levothyroxine Sodium 112 MCG Tablet 1 tablet Orally Monday-Monday Active Aspirin 81 81 MG Tablet Delayed Release 1 tablet Orally Once a day Active Encounters Encounter Location Date Provider Diagnosis Dr Willian Romero MD PA [address] [address] [place], [place] [id number] 04/01/2024 TESSIE WHITESIDE Plan Of Treatment Next Appt Details Provider Name:TESSIE YA, 03/31/2025 01:00:00 PM, [address] [facility], [address], [place], [place], [phone], Progress Notes * RAFA BELLOB:1940 ([age] yo F)Acc No.[id number]:04/01/2024 Progress Note Patient: SUZY HAMMONDS Provider: Peter Madrigal, Santos :1940 A ge:83 Y S ex:Female Date:04/01/2024 Address:[address] [place], [place] [id number] Pcp:WILLIAN ROMERO Subjective: * Chief Complaints: * A [place] * Medications: T akingAspirin 81 81 MG Tablet Delayed Release 1 tablet Orally Once a day Levothyroxine Sodium 112 MCG Tablet 1 tablet Orally Monday-Monday Omeprazole 40 MG Capsule Delayed Release 1 capsule 30 minutes before morning meal Orally Once a day Iron 325 (65 Fe) MG Tablet 1 tablet Orally Once a day Warfarin Sodium 3 MG Tablet 1 tablet Orally Once a day Tylenol Extra Strength 500 MG Tablet 1 tablet as needed Orally every 6 hrs Clopidogrel Bisulfate 75 MG Tablet 1 tablet Orally Once a day , Notes to Pharmacist: 6 MONTHValsartan-hydroCHLOROthiazide 320-25 MG Tablet TAKE 1 TABLET BY MOUTH EVERY DAY Pravastatin Sodium 80 MG Tablet 1 tablet Orally Once a day Taking Aspirin 81 81 MG Tablet Delayed Release 1 tablet Orally Once a day Taking Levothyroxine Sodium 112 MCG Tablet 1 tablet Orally Monday-Monday Taking Omeprazole 40 MG Capsule Delayed Release 1 capsule 30 minutes before morning meal Orally Once a day Taking Iron 325 (65 Fe) MG Tablet 1 tablet Orally Once a day Taking Warfarin Sodium 3 MG Tablet 1 tablet Orally Once a day Taking Tylenol Extra Strength 500 MG Tablet 1 tablet as needed Orally every 6 hrs Taking Clopidogrel Bisulfate 75 MG Tablet 1 tablet Orally Once a day , Notes to Pharmacist: 6 MONTHTaking Valsartan-hydroCHLOROthiazide 320-25 MG Tablet TAKE 1 TABLET BY MOUTH EVERY DAY Taking Pravastatin Sodium 80 MG Tablet 1 tablet Orally Once a day Not-TakingWarfarin Sodium 4 MG Tablet 1 tablet Orally ONE DAY A WEEK ON MONDAY Not-Taking Warfarin Sodium 4 MG Tablet 1 tablet Orally ONE DAY A WEEK ON MONDAY * Electronic signature of ALEXANDREA BEAN CCA on 01/30/2025 at 12:52 PM EDT Sign off status: Pending * Provider: Peter Madrigal -C Date: 1 06/02/2023 Generated for Rosalie vang/Donovan/Armando on: 12:52 PM EDT
--- OUTSIDE RECORDS SUMMARY | 2025-01-30 11:53 | XMS_ITS | Clinical Summary ---
Author Organization [facility] Address [address] [place] [address] Care Team Providers Care Box Office Agent Name Role Phone Unavailable Primary Care Provider [...] series) 2015 COVID-19 Vaccine (2023-2 5 season) 2024 Meningococcal B Vaccine Aged Out No l onger eligible based on patient's age to complete this topic Meningococcal Vaccine Aged Out No carlos martin eligible based on patient's age to complete this topic RSV Immunizations Under 20 Months Aged Out No longer eligible based on patient's age to complete this topic
--- OUTSIDE RECORDS SUMMARY | 2025-01-30 11:53 | XMS_ITS | Clinical Summary ---
Author Organization [facility] Address [address] [place] [address] Phone Care Team Providers Care Sanding Machine Operator Or Tender Name Role Phone Edgar Gay MD Primary [...] migh t be different from the original. Flight Follower - Dr Bishnu Garibay Problem Noted Date Diagnosed Date S/P MVR (mitral valve replacement) Overview (03/03/2010): due to mitral regurgitation 2000 at [facility] in [place], [place], followed by prosthetic mitral valve replacement 08-30-[address] Meño Schulz (24-mm ATS AP valve). Most recent echocardiogram (04-21-08): grossly normal prosthetic mitral valve with 2.9 mmHg mean diastolic gradient, pressure half time 112 milliseconds, valve area 2.0 cm squared, with normal left ventricular function. 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
--- OUTSIDE RECORDS SUMMARY | 2025-01-30 11:53 | XMS_ITS | Clinical Summary ---
Author Organization [facility] Address [address] [place] [address] Care Team Providers Care Supervisor Farm Equipment Maintenance Name Role Phone Kenneth Chun Primary Care Provider Source Comments [facility],non-owned Affiliates and Associated Physician Practices is amultiple site organization consisting of ambulatory clinics and hospital sitesin [place], [place], [place] and [place]. This disclosure is being madepursuant to the Care Everywhere program and may not contain all information available regarding this patient. Last updated 18.[facility] [employer] Allergies Active Allergy Reactions Criticality Noted Date [...] migh t be different from the original. Tensile Tester- Dr. Bishnu Garibay Problem Noted Date Diagnosed Date Atherosclerosis of [place] co ronary artery of [place] heart without angina pectoris 08/19/2016 Non-rheumatic tricuspid [...] topic Insurance MEDICARE COMMERCIAL GENERIC Care Teams Supervisor Farm Equipment Maintenance Relationship Specialty Start Date End Date Kenneth Chun DO [address] [place], [place] [phone] PCP - General Internal Medicine 02/06/19
--- OUTSIDE RECORDS SUMMARY | 2025-01-30 11:53 | XMS_ITS | Patient Health Record ---
Author Organization Dr Willian Palmer PA Address [address] [facility] [address] [place], [place] [id number] Care Team Providers Care Hair Assistant Name Role Phone WILLIAN ROMERO Primary Care Provider Willian Romero MD Unavailable Unavailable TESSIE WHITESIDE Unavailable [phone] Allergies Allergen (clinical drug ingredient) Drug/Non Drug [...] Problem Status W/U Status Risk Notes Problem Degeneration of intervertebral disc of lumbar region with discogenic back pain and lower extremity pain (M51.362) Active confirmed Problem Chronic kidney disease stage 3A (disorder) (037129772) Stage 3a chronic kidney disease (CKD) (N18.31) Active confirmed Problem Derangement of left shoulder joint (disorder) (46769669315459257) Internal derangement of left shoulder (M24.812) Active confirmed Problem Cervical spondylosis without myelopathy (340158631) Osteoarthritis of spine with radiculopathy, cervical region (M47.22) Active confirmed Problem Mixed hyperlipidemia (429623682) Hyperlipemia, mixed (E78.2) Active confirmed Problem History of heart valve recipient (106551479) S/P mitral valve replacement with metallic valve (Z95.4) Active confirmed Problem Atherosclerosis of coronary artery without angina pectoris (477426915854583) Atherosclerosis of shawnee coronary artery of shawnee heart without angina pectoris (I25.10) Active confirmed Problem Anemia due to chronic blood loss (373344479) Blood loss anemia (D50.0) Active confirmed Problem Gastroesophageal reflux disease (250817976) GERD without esophagitis (K21.9) Active confirmed Problem Non-rheumatic mitral regurgitation (970548497) Nonrheumatic mitral valve regurgitation (I34.0) Active confirmed Problem Peptic ulcer (96884598) Peptic ulcer (K27.9) Active confirmed Problem Hypertensive heart disease without congestive heart failure (90520500) Hypertensive arteriosclerotic cardiovascular disease (I11.9) Active confirmed Problem Atherosclerotic heart disease of shawnee coronary artery without angina pectoris (537343661053752) Coronary artery disease involving shawnee coronary artery of shawnee heart without angina pectoris (I25.10) Active confirmed Problem Transient ischemic attack (344170500) TIA (transient ischemic attack) (G45.9) Active confirmed Problem Degenerative disc disease (87888414) DDD (degenerative disc disease), lumbar (M51.36) Active confirmed Problem History of heart valve repair with prosthesis (435921140998607) Presence of prosthetic heart valve (Z95.2) Active confirmed Problem Long-term current use of drug therapy (659903358) Other long term care phlebotomist (current) drug therapy (Z79.899) Active confirmed Problem Long-term current use of anticoagulant (721618916) [facility] (current) use of anticoagulants (Z79.01) Active confirmed Problem Impaired fasting glucose (722298797) Impaired fasting glucose (R73.01) Active confirmed Problem Gastrointestinal hemorrhage (64133033) Gastrointestinal hemorrhage, unspecified (K92.2) Active confirmed Problem Seasonal allergic rhinitis (586575144) Other seasonal allergic rhinitis (J30.2) Active confirmed Problem Mitral valve disorder (06991556) Nonrheumatic mitral (valve) insufficiency (I34.0) Active confirmed Problem Hypertensive heart disease without congestive heart failure (09736114) Hypertensive heart disease without heart failure (I11.9) Active confirmed Problem Mixed hyperlipidemia (301922053) Mixed hyperlipidemia (E78.2) Active confirmed Problem Hypothyroidism (55567081) Other specified hypothyroidism (E03.8) Active confirmed Problem Mechanical heart valve prosthesis (721624782) Mechanical heart valve present (Z95.2) Active confirmed Problem Thoracic radiculopathy (17120375) Thoracic radiculopathy (M54.14) Active confirmed Problem Cervical radiculopathy (52016290) Cervical radiculopathy (M54.12) Active confirmed Vital Signs Heart Rate 71 /min 04/29/2024 Temperature 97.8 degrees Fahrenheit 04/29/2024 Respiratory Rate 18 /min 04/29/2024 Oximetry 96 % 04/29/2024 Blood pressure diastolic 68 mm Hg 04/29/2024 Weight-kg 77.11 kg 04/29/2024 Height 64 in 04/29/2024 Blood pressure systolic 120 mm Hg 04/29/2024 Weight 170 lbs 04/29/2024 BMI 29.18 kg/m2 04/29/2024 Encounters Encounter Location Date Provider Diagnosis Dr Willian PADILLA [address] [facility] [address] [place] [address] [id number] 02/28/2024 WILLIAN ROMERO Hypertensive heart disease without heart failure I11.9 ; Coronary artery disease involving shawnee coronary artery of shawnee heart without angina pectoris I25.10 ; Mixed [...] valve replacement with metallic valve Z95.4 ; [facility] (current) use of anticoagulants Z79.01 ; Mechanical heart valve present Z95.2 and Encounter for immunization Z23 Dr Willian PADILLA [address] [facility] [address] [place] [address] [id number] 04/29/2024 TESSIE WHITESIDE Hypertensive heart disease without heart failure I11.9 ; Coronary artery disease involving shawnee coronary artery of shawnee heart without angina pectoris I25.10 ; Mixed [...] valve replacement with metallic valve Z95.4 ; [facility] (current) use of anticoagulants Z79.01 ; Mechanical heart valve present Z95.2 ; Encounter for general adult medical examination without abnormal findings Z00.00 ; Encounter for immunization Z23 and Stage 3a chronic kidney disease (CKD) N18.31 Dr Willian Romero MD PA [address] [facility] [address] [place] [address] [id number] 03/01/2024 WILLIAN ROMERO S/P mitral valve replacement with metallic valve Z95.4 and Mechanical heart valve present Z95.2 Dr Willian Romero MD PA [address] [facility] [address] [place] [address] [id number] 03/15/2024 TESSIE Romero MD PA [address] [facility] [address] [place] [address] [id number] 03/18/2024 WILLIAN ROMERO S/P mitral valve replacement with metallic valve Z95.4 Dr Willian Romero MD PA [address] [facility] [address] [place] [address] [id number] 04/04/2024 WILLIAN Romero MD PA [address] [facility] [address] [place] [address] [id number] 04/18/2024 WILLIAN Romero MD PA [address] [facility] [address] [place] [address] [id number] 05/08/2024 WILLIAN Romero MD PA [address] [facility] [address] [place] [address] [id number] 05/22/2024 WILLIAN Romero MD PA [address] [facility] [address] [place] [address] [id number] 06/06/2024 WILLIAN ROMERO S/P mitral valve replacement with metallic valve Z95.4 Dr Willian Romero MD PA [address] [facility] [address] [place] [address] [id number] 06/20/2024 WILLIAN Romero MD PA [address] [facility] [address] [place] [address] [id number] 07/03/2024 WILLIANHALEY ROMERO S/P mitral valve replacement with metallic valve Z95.4 Dr Willian Romero MD PA [address] [facility] [address] [place] [address] [id number] 07/17/2024 WILLIAN PADILLA [address] [facility] [address] [place] [address] [id number] 07/31/2024 WILLIAN PADILLA [address] [facility] [address] [place] [address] [id number] 08/14/2024 WILLIAN PADILLA [address] [facility] [address] [place] [address] [id number] 11/14/2024 WILLIAN ROMERO Assessments Encounter Date Diagnosis [...] - Z95.4) 04/29/2024 Coronary artery disease involving shawnee coronary artery of shawnee heart without angina pectoris (ICD-10 - I25.10) == CAD status post PTCA: No chest pain or dyspnea Per cardiology in [place] On Plavix, statin, beta-mara. Continue 2D echo [...] chest pain or dyspnea Per cardiology in [place] On Plavix, statin, beta-mara. Continue 2D echo [...] TFT normal 02/28/2024 Coronary artery disease involving shawnee coronary artery of shawnee heart without angina pectoris (ICD-10 - I25.10) == : CAD status post PTCA: No chest pain or dyspnea Per cardiology in [place] On Plavix, statin, beta-mara. Continue 2D echo [...] chest pain or dyspnea Per cardiology in [place] On Plavix, statin, beta-mara. Continue 2D echo [...] chest pain or dyspnea Per cardiology in [place] On Plavix, statin, beta-mara. Continue 2D echo [...] chest pain or dyspnea Per cardiology in [place] On Plavix, statin, beta-mara. Continue 2D echo [...] chest pain or dyspnea Per cardiology in [place] On Plavix, statin, beta-mara. Continue 2D echo [...] chest pain or dyspnea Per cardiology in [place] On Plavix, statin, beta-mara. Continue 2D echo [...] chest pain or dyspnea Per cardiology in [place] On Plavix, statin, beta-mara. Continue 2D echo [...] chest pain or dyspnea Per cardiology in [place] On Plavix, statin, beta-mara. Continue 2D echo [...] chest pain or dyspnea Per cardiology in [place] On Plavix, statin, beta-mara. Continue 2D echo [...] chest pain or dyspnea Per cardiology in [place] On Plavix, statin, beta-mara. Continue 2D echo [...] chest pain or dyspnea Per cardiology in [place] On Plavix, statin, beta-mara. Continue 2D echo [...] chest pain or dyspnea Per cardiology in [place] On Plavix, statin, beta-mara. Continue 2D echo [...] chest pain or dyspnea Per cardiology in [place] On Plavix, statin, beta-mara. Continue 2D echo [...] chest pain or dyspnea Per cardiology in [place] On Plavix, statin, beta-mara. Continue 2D echo [...] chest pain or dyspnea Per cardiology in [place] On Plavix, statin, beta-mara. Continue 2D echo [...] chest pain or dyspnea Per cardiology in [place] On Plavix, statin, beta-mara. Continue 2D echo [...] chest pain or dyspnea Per cardiology in [place] On Plavix, statin, beta-mara. Continue 2D echo [...] chest pain or dyspnea Per cardiology in [place] On Plavix, statin, beta-mara. Continue 2D echo [...] chest pain or dyspnea Per cardiology in [place] On Plavix, statin, beta-mara. Continue 2D echo [...] chest pain or dyspnea Per cardiology in [place] On Plavix, statin, beta-mara. Continue 2D echo [...] chest pain or dyspnea Per cardiology in [place] On Plavix, statin, beta-mara. Continue 2D echo [...] chest pain or dyspnea Per cardiology in [place] On Plavix, statin, beta-mara. Continue 2D echo [...] On levothyroxine . Continue TFT normal 04/29/2024 [facility] (current) use of anticoagulants (ICD-10 - Z79.01) == CAD status post PTCA: No chest pain or dyspnea Per cardiology in [place] On Plavix, statin, beta-mara. Continue 2D echo [...] chest pain or dyspnea Per cardiology in [place] On Plavix, statin, beta-mara. Continue 2D echo [...] Hypothyroidis m: On levothyroxine . Continue 02/28/2024 [facility] (current) use of anticoagulants (ICD-10 - Z79.01) == : CAD status post PTCA: No chest pain or dyspnea Per cardiology in [place] On Plavix, statin, beta-mara. Continue 2D echo [...] chest pain or dyspnea Per cardiology in [place] On Plavix, statin, beta-mara. Continue 2D echo [...] chest pain or dyspnea Per cardiology in [place] On Plavix, statin, beta-mara. Continue 2D echo [...] chest pain or dyspnea Per cardiology in [place] On Plavix, statin, beta-mara. Continue 2D echo [...] chest pain or dyspnea Per cardiology in [place] On Plavix, statin, beta-mara. Continue 2D echo [...] chest pain or dyspnea Per cardiology in [place] On Plavix, statin, beta-mara. Continue 2D echo [...] chest pain or dyspnea Per cardiology in [place] On Plavix, statin, beta-mara. Continue 2D echo [...] chest pain or dyspnea Per cardiology in [place] On Plavix, statin, beta-mara. Continue 2D echo [...] LIPID PANEL, STANDARD (7600) 04/29/2024 TSH+FREE T4 (60257) 04/29/2024 COMPREHENSIVE METABOLIC PANEL (31978) CBC (H/H, RBC, INDICES, WBC, PLT) (1759) 04/29/2024 HEMOGLOBIN A1c (496) 04/29/2024 Next Appt Details Provider Name:TESSIE YA, 03/31/2025 01:00:00 PM, [address] [facility], [address], [place], [place], [phone], Insurance Providers Payer Name Payer Address Payer Phone Subscriber Number Group Number Insured Name Patient Relationship to Insured Coverage Start Date Coverage End Date MEDICARE [address] [place] [phone] [id number] SUZY BELL Self - patient is the insured [employer] [address] [address] [place] [address] [id number] SUZY BELL Self - patient is the insured Medical (General) History Medical History History ICD Code Hypertensive heart disease without heart failure I11.9 Atherosclerosis of shawnee co ronary artery of shawnee heart without angina pectoris I25.10 Other long term care phlebotomist (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
[2025-01-30 12:39] LABS: INR 3.2; Prothrombin Time 31.5 Seconds (11.1-14.7)
== END 2025-01-30 11:34 | disposition home or self-care (01) ==
LOC: ANHLAB 11:34
PROVIDERS: PCP Nurse Practitioner; Visit Provider Nurse Practitioner
DX: Z95.2 Presence of prosthetic heart valve (principal); Z79.01 Long term (current) use of anticoagulants
CPT/HCPCS: 36415; 85610